=== PATIENT | female | born 1930 | race Caucasian/White ===

== ENCOUNTER 2017-02-19 13:01 | Emergency (ER) | payer MEDICARE, MEDICAID ==
[2017-02-19 13:29] VITALS: BP 103/63
[2017-02-19] MEDS ORDERED: Sodium Chloride 0.9% 1,000 ML IV ONE (13:47)
--- NOTE | 2017-02-19 13:51 | EDM.PDOC ---
ED HPI GENERAL MEDICAL PROBLEM - General Chief Complaint: Gastrointestinal Problem Stated Complaint: TEMP/WEAKNESS/COUGH Time Seen by Provider: 02/19/17 13:30 Source of Information: Reports: Patient, Family History Limitations: Reports: No Limitations - History of Present Illness INITIAL COMMENTS - FREE TEXT/NARRATIVE: 86-year-old female with cough, weakness, emesis 2 today who is also being treated for UTI with Levaquin. She's been exposed to influenza A over the past week, did receive a flu vaccination. She has generalized malaise, myalgias, fever and chills and "just feels awful". No diarrhea. No chest pain or productive cough. Significant frontal headache over the past 48 hours Onset: Gradual (Over the past 2-3 days) Quality: Reports: Ache Severity: Moderate (Aches all over) Associated Symptoms: Reports: Cough, Fever/Chills, Loss of Appetite, Malaise, Nausea/Vomiting. Denies: Shortness of Breath - Related Data Allergies Allergy/AdvReac Type Severity Reaction Status Date / Time cefdinir Allergy Intermediate Rash Verified 05/28/15 06:25 Penicillins Allergy Anaphylactic Verified 02/19/17 13:19 Shock erythromycin base AdvReac Nausea and Verified 05/28/15 06:25 [Erythromycin Base] Vomiting Home Meds: Home Meds Calcium Carbonate/Vitamin D3 [Calcium 600-Vit D3 200 Tablet] 1 cap PO BID [History] Multivitamin [Daily Multiple Vitamin] 1 tab PO DAILY 02/22/14 [History] [place]-3 Fatty Acids [[place]-3] 1,000 mg PO DAILY 02/22/14 [History] Levofloxacin [Levofloxacin] 02/19/17 [History] Past Medical History HEENT History: Reports: Cataract, Sinusitis Cardiovascular History: Reports: High Cholesterol Respiratory History: Reports: Bronchitis, Recurrent, Pneumonia, Recurrent Other Gastrointestinal History: CURRENT UTI DX Genitourinary History: Reports: UTI, Recurrent [employer] AND [employer]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 Dermatologic History: Reports: Urticaria Other Dermatologic History: Herpes Zoster - Infectious Disease History Infectious Disease History: Reports: Chicken Pox, Shingles - Past Surgical History HEENT Surgical History: Reports: Other (See Below) Social & Family History - Family History Family Medical History: Unobtainable - Tobacco Use Smoking Status *Q: Never Smoker Second Hand Smoke Exposure: No - Alcohol Use Days Per Week of Alcohol Use: 0 - Recreational Drug Use Recreational Drug Use: No ED ROS GENERAL - Review of Systems Review Of Systems: See Below Constitutional: Reports: Fever, Chills, Malaise, Weakness HEENT: Reports: Rhinitis. Denies: Throat Pain Respiratory: Reports: Cough. Denies: Shortness of Breath, Sputum Cardiovascular: Denies: Chest Pain GI/Abdominal: Reports: Nausea, Vomiting. Denies: Abdominal Pain Musculoskeletal: Reports: Muscle Pain (Aches all over) Skin: Reports: No Symptoms Neurological: Reports: Headache Psychiatric: Reports: No Symptoms ED EXAM, GENERAL - Physical Exam Exam: See Below Exam Limited By: No Limitations General Appearance: Alert, No Apparent Distress Head: Atraumatic Respiratory/Chest: No Respiratory Distress, Wheezing (Patient has a few scattered expiratory wheezes, there is also bilateral basilar crackles) Cardiovascular: Regular Rate, Rhythm GI/Abdominal: Soft, Non-Tender Extremities: No: Pedal Edema Neurological: Alert, Oriented Psychiatric: Depressed Mood, Flat Affect Skin Exam: Warm, Dry Course - Vital Signs Last Recorded V/S: Last Vital Signs Temp 99.7 F 02/19/17 13:27 Pulse 87 02/19/17 13:27 Resp 14 02/19/17 13:27 BP 103/63 02/19/17 13:27 Pulse Ox 94 L 02/19/17 13:27 - Orders/Labs/Meds Labs: Laboratory Tests 02/19/17 02/19/17 02/19/17 Range/Units 13:53 13:53 14:12 WBC 3.7 L (4.5-11.0) K/uL RBC 4.60 (3.30-5.50) M/uL Hgb 14.0 (12.0-15.0) g/dL Hct 43.4 (36.0-48.0) % MCV 94 (80-98) fL MCH 30 (27-31) pg MCHC 32 (32-36) % Plt Count 137 L (150-400) K/uL Neut % (Auto) 66 (36-66) % Lymph % (Auto) 16 L (24-44) % [place] % (Auto) 16 H (2-6) % Eos % (Auto) 1 L (2-4) % Baso % (Auto) 0 (0-1) % Sodium 139 L (140-148) mmol/L Potassium 4.0 (3.6-5.2) mmol/L Chloride 104 (100-108) mmol/L Carbon Dioxide 29 (21-32) mmol/L Anion Gap 10.0 (5.0-14.0) mmol/L BUN 15 (7-18) mg/dL Creatinine 0.8 (0.6-1.0) mg/dL Est Cr Clr Drug Dosing 41.76 mL/min Estimated GFR (MDRD) > 60 (>60) Glucose 85 (74-106) mg/dL Calcium 8.2 L (8.5-10.1) mg/dL Urine Color Yellow Urine Appearance Clear Urine pH 5.0 (4.5-8.0) Ur Specific [place] 1.025 (1.008-1.030) Urine Protein Negative (NEGATIVE) mg/dL Urine Glucose (UA) Normal (NEGATIVE) mg/dL Urine Ketones 15 H (NEGATIVE) mg/dL Urine Occult Blood Negative (NEGATIVE) Urine Nitrite Negative (NEGATIVE) Urine Bilirubin Negative (NEGATIVE) Urine Urobilinogen Normal (NORMAL) mg/dL Ur Leukocyte Esterase Negative (NEGATIVE) Urine RBC Not seen (0-5) Urine WBC 0-5 (0-5) Ur Epithelial Cells Rare Amorphous Sediment Few Urine Bacteria Rare Urine Mucus Not seen Meds: Medications Discontinued Medications Generic Name Dose Route Start Last Admin Trade Name Freq PRN Reason Stop Dose Admin Sodium Chloride 1,000 mls @ 999 mls/hr 02/19/17 13:47 02/19/17 14:15 Normal Saline IV 02/19/17 14:47 999 mls/hr ONETIME ONE Administration - Re-Assessments/Exams Free Text/Narrative Re-Assessment/Exam: 02/19/17 13:51 Patient was hydrated with normal saline bolus, CBC BMP influenza antigens and a quick catheter in and out UA were obtained. 02/19/17 14:43 UA was negative except for some ketones. White count was 3700, BMP was reassuring. Influenza A antigen was positive. Patient will be discharged with a diagnosis of influenza A, told to stop the Levaquin and increase fluids and diet as tolerated. Departure - Departure Time of Disposition: 14:59 Disposition: Home, Self-Care 01 Condition: Fair Clinical Impression: Influenza A - Discharge Information Instructions: Influenza, Adult, [id number] Referrals: PCP,None [Primary Care Provider] - Forms: ED Department Discharge Care Plan Goals: Ibuprofen or naproxen on a regular basis the next few days should help aches, pains, and fever. Drink lots of water, get plenty of rest and increase activity as tolerated. Return to the emergency room at any time if you feel you are worsening such as difficulty breathing.
== END 2017-02-19 14:59 | disposition home or self-care (01) ==
LOC: JP.ED 13:01
DX: J10.1 Influenza due to other identified influenza virus with other respiratory manifestations (principal); E78.00 Pure hypercholesterolemia, unspecified; Z88.0 Allergy status to penicillin; Z88.1 Allergy status to other antibiotic agents
CPT/HCPCS: 36415; 80048; 81001; 85025; 87804; 96360; 99285; J7040; 99283

== ENCOUNTER 2017-03-03 15:33 | Emergency (ER) | payer MEDICARE, MEDICAID ==
[2017-03-03] MEDS ORDERED: Albuterol/Ipratropium 3.0-0.5 MG/3 ML Neb Soln NEB ONE (15:57)
--- NOTE | 2017-03-03 16:04 | EDM.PDOC ---
ED HPI GENERAL MEDICAL PROBLEM - General Chief Complaint: Respiratory Problem Stated Complaint: LOW OXYGEN / WEAKNESS Time Seen by Provider: 03/03/17 15:50 Source of Information: Reports: Patient, Old Records History Limitations: Reports: No Limitations - History of Present Illness INITIAL COMMENTS - FREE TEXT/NARRATIVE: 86 yo female with recent influenza presented to the clinic with SOB of gradual onset. Thinks she has been running a fever, but has not taken any antipyretics today and her temp in clinic and here is normal. Denies any recent calf swelling or pleuritic chest pain. Has an increased cough lately that is generally non-productive. Had a normal CBC and CXR done at the clinic today and was then placed on oxygen for her hypoxia and sent to the ER. Oxygen sats in the clinic on Rm Air were about 85%. Says she has never been a smoker, but her was a smoker and smoked in the house/car. Denies a hx of CHF. Was on Levaquin for a UTI before developing her current respiratory illness. Denies orthopnea. Oxygen sats on Rm air on 02/19/17 were 94%. Does not use home oxygen. Onset: Gradual Onset Date: 02/19/17 Duration: Day(s):, Getting Worse Location: Reports: Chest Quality: Reports: Other (no pain) Severity: Moderate Improves with: Reports: Rest Worsens with: Reports: Movement Context: Reports: Other (Recent influenza) Associated Symptoms: Reports: Cough, Fever/Chills (? not documented), Shortness of Breath, Weakness. 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 ) - Related Data Allergies Allergy/AdvReac Type Severity Reaction Status Date / Time cefdinir Allergy Intermediate Rash Verified 05/28/15 06:25 Penicillins Allergy Anaphylactic Verified 02/19/17 13:19 Shock erythromycin base AdvReac Nausea and Verified 05/28/15 06:25 [Erythromycin Base] Vomiting Home Meds: Home Meds Calcium Carbonate/Vitamin D3 [Calcium 600-Vit D3 200 Tablet] 1 cap PO BID [History] Multivitamin [Daily Multiple Vitamin] 1 tab PO DAILY 02/22/14 [History] [place]-3 Fatty Acids [[place]-3] 1,000 mg PO DAILY 02/22/14 [History] Cholecalciferol (Vitamin D3) [Vitamin D3] 1,000 unit PO DAILY 03/03/17 [History] Ondansetron [Ondansetron ODT] 4 mg PO ASDIRECTED PRN 03/03/17 [History] Past Medical History HEENT History: Reports: Cataract, Sinusitis Cardiovascular History: Reports: High Cholesterol Respiratory History: Reports: Bronchitis, Recurrent, Pneumonia, Recurrent Other Gastrointestinal History: CURRENT UTI DX Genitourinary History: Reports: UTI, Recurrent 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 Dermatologic History: Reports: Urticaria Other Dermatologic History: Herpes Zoster - Infectious Disease History Infectious Disease History: Reports: Chicken Pox, Measles, Mumps, Shingles - Past Surgical History HEENT Surgical History: Reports: Other (See Below) Social & Family History - Family History Family Medical History: Unobtainable - Tobacco Use Smoking Status *Q: Never Smoker Second Hand Smoke Exposure: No - Caffeine Use Caffeine Use: Reports: Coffee, Soda, Tea - Alcohol Use Days Per Week of Alcohol Use: 0 - Recreational Drug Use Recreational Drug Use: No ED ROS GENERAL - Review of Systems Review Of Systems: See Below Constitutional: Reports: Fever, Weakness, Fatigue, Decreased Appetite HEENT: Reports: No Symptoms Respiratory: Reports: Shortness of Breath, Cough. Denies: Wheezing, Pleuritic Chest Pain, Sputum, Hemoptysis Cardiovascular: Reports: Dyspnea on Exertion. Denies: Chest Pain, Edema, Orthopnea, Palpitations Endocrine: Reports: No Symptoms GI/Abdominal: Reports: No Symptoms : Reports: No Symptoms Musculoskeletal: Reports: No Symptoms Skin: Reports: No Symptoms Neurological: Reports: No Symptoms Psychiatric: Reports: No Symptoms ED EXAM, GENERAL - Physical Exam Exam: See Below General Appearance: Alert, WD/WN, No Apparent Distress, Thin Eye Exam: Bilateral Eye: PERRL Ears: Normal External Exam, Normal Canal, Hearing Grossly Normal Ear Exam: Bilateral Ear: Auricle Normal, Canal Normal, TM normal Nose: Normal Inspection, Normal Mucosa, No Blood Throat/Mouth: Normal Inspection, Normal Lips, Normal Oropharynx, Normal Voice, No Airway Compromise Head: Atraumatic, Normocephalic Neck: Normal Inspection, Supple, Non-Tender Respiratory/Chest: Lungs Clear, Decreased Breath Sounds, Other (Frequent wet sounding cough) Cardiovascular: Regular Rate, Rhythm, No Edema GI/Abdominal: Normal Bowel Sounds, Soft, Non-Tender, No Distention Back Exam: Normal Inspection. No: CVA Tenderness (R), CVA Tenderness (L) Extremities: Normal Inspection, Normal Range of Motion, Non-Tender, No Pedal Edema Neurological: Alert, Oriented, CN II-XII Intact, Normal Cognition, No Motor/ Sensory Deficits Psychiatric: Normal Affect, Normal Mood Skin Exam: Warm, Dry, Intact, Normal Color, No Rash Lymphatic: No Adenopathy Course - Vital Signs Text/Narrative:: Minimal benefit from neb tx's, no improvement in oxygenation. Azithromycin 500 mg IV given. KCL 20 meq po given, Lovenox 1 mg/kg subcut after CT review shows LLL PE. No beds here, patient willing only to consider [facility] and no other hospital. Accepted in transfer by Dr. Winters. BLS transfer pending with oxygen during transfer. Last Recorded V/S: Last Vital Signs Temp 36.2 C 03/03/17 19:30 Pulse 111 H 03/03/17 19:30 Resp 16 03/03/17 19:30 BP 110/74 03/03/17 19:30 Pulse Ox 93 L 03/03/17 19:30 - Orders/Labs/Meds Labs: Laboratory Tests 03/03/17 03/03/17 03/03/17 Range/Units 16:00 16:00 16:00 D-Dimer, Quantitative 4280 H (0.0-400.0) ng/mL Sodium 142 (140-148) mmol/L Potassium 3.5 L (3.6-5.2) mmol/L Chloride 104 (100-108) mmol/L Carbon Dioxide 27 (21-32) mmol/L Anion Gap 14.5 H (5.0-14.0) mmol/L BUN 12 (7-18) mg/dL Creatinine 0.8 (0.6-1.0) mg/dL Est Cr Clr Drug Dosing 45.42 mL/min Estimated GFR (MDRD) > 60 (>60) Glucose 98 (74-106) mg/dL Calcium 8.7 (8.5-10.1) mg/dL Magnesium (1.8-2.4) mg/dL C-Reactive Protein 3.34 H (0.0-0.3) mg/dL NT-Pro-B Natriuret Pep (5-450) pg/mL Urine Color Urine Appearance Urine pH (4.5-8.0) Ur Specific [place] (1.008-1.030) Urine Protein (NEGATIVE) mg/dL Urine Glucose (UA) (NEGATIVE) mg/dL Urine Ketones (NEGATIVE) mg/dL Urine Occult Blood (NEGATIVE) Urine Nitrite (NEGATIVE) Urine Bilirubin (NEGATIVE) Urine Urobilinogen (NORMAL) mg/dL Ur Leukocyte Esterase (NEGATIVE) Urine RBC (0-5) Urine WBC (0-5) Ur Epithelial Cells Amorphous Sediment Urine Bacteria Urine Mucus 03/03/17 03/03/17 03/03/17 Range/Units 16:23 16:30 18:05 D-Dimer, Quantitative (0.0-400.0) ng/mL Sodium (140-148) mmol/L Potassium (3.6-5.2) mmol/L Chloride (100-108) mmol/L Carbon Dioxide (21-32) mmol/L Anion Gap (5.0-14.0) mmol/L BUN (7-18) mg/dL Creatinine (0.6-1.0) mg/dL Est Cr Clr Drug Dosing mL/min Estimated GFR (MDRD) (>60) Glucose (74-106) mg/dL Calcium (8.5-10.1) mg/dL Magnesium 1.8 (1.8-2.4) mg/dL C-Reactive Protein (0.0-0.3) mg/dL NT-Pro-B Natriuret Pep 233 (5-450) pg/mL Urine Color [place] Urine Appearance Clear Urine pH 6.5 (4.5-8.0) Ur Specific [place] 1.015 (1.008-1.030) Urine Protein Negative (NEGATIVE) mg/dL Urine Glucose (UA) Normal (NEGATIVE) mg/dL Urine Ketones 15 H (NEGATIVE) mg/dL Urine Occult Blood Negative (NEGATIVE) Urine Nitrite Negative (NEGATIVE) Urine Bilirubin Small (NEGATIVE) Urine Urobilinogen 4 (NORMAL) mg/dL Ur Leukocyte Esterase Moderate (NEGATIVE) Urine RBC 0-5 (0-5) Urine WBC 10-20 H (0-5) Ur Epithelial Cells Many Amorphous Sediment Not seen Urine Bacteria Not seen Urine Mucus Rare Meds: Medications Discontinued Medications Generic Name Dose Route Start Last Admin Trade Name Don PRN Reason Stop Dose Admin Albuterol 2.5 mg 03/03/17 16:30 03/03/17 16:50 Proventil Neb Soln NEB 03/03/17 16:31 2.5 mg ONETIME ONE Administration Albuterol/Ipratropium 3 ml 03/03/17 15:57 03/03/17 16:14 Duoneb 3.0-0.5 Mg/3 Ml NEB 03/03/17 15:58 3 ml ONETIME ONE Administration Enoxaparin Sodium 60 mg 03/03/17 18:35 03/03/17 18:41 Lovenox SUBCUT 03/03/17 18:36 60 mg ONETIME ONE Administration Azithromycin 1,000 mg/ Sodium 500 mls @ 500 mls/hr 03/03/17 16:29 03/03/17 17 :39 Chloride IV 03/03/17 17:28 Not Given ONETIME ONE Lactated Ringer's 1,000 mls @ 500 mls/hr 03/03/17 17:00 03/03/17 17:34 Ringers, Lactated IV 500 mls/hr ASDIRECTED [place] Administration Sodium Chloride 100 mls @ 3 mls/sec 03/03/17 17:15 03/03/17 17:33 Normal Saline IV 3 mls/sec ASDIRECTED [place] Administration Azithromycin 500 mg/ Sodium 250 mls @ 250 mls/hr 03/03/17 17:14 03/03/17 17: 34 Chloride IV 03/03/17 18:13 250 mls/hr ONETIME ONE Administration Iopamidol 100 ml 03/03/17 17:15 03/03/17 17:33 Isovue-370 (76%) IV 100 ml . DIRECTED CALDERON Administration Potassium Chloride 20 meq 03/03/17 16:30 03/03/17 17:33 Klor-Con M20 PO 03/03/17 16:31 20 meq ONETIME ONE Administration Sodium Chloride 10 ml 03/03/17 17:04 03/03/17 17:34 Normal Saline FLUSH 03/03/17 17:05 10 ml ONETIME ONE Administration - Radiology Interpretation Free Text/Narrative:: Angiogram of Chest-LLL PE CT Results Date: 01/09/18 CT Results Time: 18:04 Departure - Departure Time of Disposition: 20:00 Disposition: DC/Tfer to Acute Hospital 02 Condition: Fair Clinical Impression: Hypoxia, Bronchitis, Mild chronic obstructive pulmonary disease Pulmonary embolism Qualifiers: Pulmonary embolism type: other Chronicity: acute Acute cor pulmonale presence: without acute cor pulmonale Qualified Code(s): I26.99 - Other pulmonary embolism without acute cor pulmonale Clinical Impression: (Ruled Out): Pulmonary air embolism - Discharge Information Referrals: PCP,None [Primary Care Provider] - Forms: ED Department Discharge
[2017-03-03] MEDS ORDERED: Azithromycin 1,000 MG in Sodium Chloride 0.9% 500 ML IV ONE (16:29)
[2017-03-03] MEDS ORDERED: Potassium Chloride 20 MEQ Tab.ER PO ONE (16:30)
[2017-03-03] MEDS ORDERED: Albuterol 0.083% 2.5 MG/3 ML Neb Soln NEB ONE (16:30)
[2017-03-03] MEDS ORDERED: Lactated Ringers 1,000 ML IV SCH (17:00)
[2017-03-03] MEDS ORDERED: Sodium Chloride 0.9% 10 ML SDV FLUSH ONE (17:04)
[2017-03-03] MEDS ORDERED: Azithromycin 500 MG in Sodium Chloride 0.9% 250 ML IV ONE (17:14)
[2017-03-03] MEDS ORDERED: Sodium Chloride 0.9% 100 ML IV SCH (17:15)
[2017-03-03] MEDS ORDERED: Iopamidol 755 Mg/ML 100 ML Bottle IV SCH (17:15)
[2017-03-03] MEDS ORDERED: Enoxaparin 60 MG/0.6 ML Syringe SUBCUT ONE (18:35)
[2017-03-03 18:43] VITALS: BP 110/74
== END 2017-03-03 20:00 ==
LOC: JP.ED 15:33
DX: I26.99 Other pulmonary embolism without acute cor pulmonale (principal); J44.9 Chronic obstructive pulmonary disease, unspecified; E78.00 Pure hypercholesterolemia, unspecified; Z88.0 Allergy status to penicillin; Z88.1 Allergy status to other antibiotic agents
CPT/HCPCS: 36415; 71275; 80048; 81001; 83735; 83880; 85379; 86140; 87086; 94640; 96361; 96365; 96372; 99285; A9270; J0456; J1650; J7030; J7050; J7120; J7620; Q9967

== ENCOUNTER 2017-03-17 10:33 | Inpatient (IN) | payer MEDICARE, MEDICAID ==
--- NOTE | 2017-03-17 11:14 | EDM.PDOC ---
ED HPI GENERAL MEDICAL PROBLEM - General Chief Complaint: General Stated Complaint: MEDICAL VIA [facility] Time Seen by Provider: 03/17/17 11:06 Source of Information: Reports: Patient History Limitations: Reports: No Limitations - History of Present Illness INITIAL COMMENTS - FREE TEXT/NARRATIVE: pt was hospitalized at [facility] and was discharged 1 week ago. She has been doing well but this am she went to stand up and nearly [passed out. She was slightly sob. She feels very washed out at this point. ! month ago the pt had influ a. She was very ill with that and was not very active. @ weeks ago she came in feeling sob and she was found to have a left lower lobe Pe. She had to be diverted to [facility] because no beds were available. She was placed on elequist on discharge and she has been taking 5 mg. twice daily. Onset: Today, Other (pt had a near syncopal episode this am. ) Duration: Hour(s): Location: Reports: Head, Chest, Back, Other (pt thinks she did fall when she tried to get back in bed this am. ) Associated Symptoms: Reports: Weakness (pt is having some back pain. ), Other Lower Back Pain Score (Numeric/FACES): 4 - Related Data Allergies Allergy/AdvReac Type Severity Reaction Status Date / Time cefdinir Allergy Intermediate Rash Verified 03/17/17 10:58 Latex, Natural Rubber Allergy Rash Verified 03/17/17 10:58 Penicillins Allergy Anaphylactic Verified 03/17/17 10:58 Shock erythromycin base AdvReac Nausea and Verified 03/17/17 10:58 [Erythromycin Base] Vomiting Home Meds: Home Meds Calcium Carbonate/Vitamin D3 [Calcium 600-Vit D3 200 Tablet] 1 cap PO BID [History] [place]-3 Fatty Acids [[place]-3] 1,000 mg PO DAILY 02/22/14 [History] Cholecalciferol (Vitamin D3) [Vitamin D3] 1,000 unit PO DAILY 03/03/17 [History] Ondansetron [Ondansetron ODT] 4 mg PO ASDIRECTED PRN 03/03/17 [History] Apixaban [Eliquis] 1 tab PO BID 03/17/17 [History] Multivitamin [Gummi Bear Multivitamin] 2 tab PO DAILY 03/17/17 [History] Past Medical History HEENT History: Reports: Cataract, Sinusitis Cardiovascular History: Reports: Blood Clots/VTE/DVT, High Cholesterol Respiratory History: Reports: Bronchitis, Recurrent, Pneumonia, Recurrent Other Gastrointestinal History: CURRENT UTI DX Genitourinary History: Reports: UTI, Recurrent [employer] History: Reports: Musculoskeletal History: Reports: Back Pain, Chronic, Osteoarthritis, Osteoporosis Oncologic (Cancer) History: Reports: Other (See Below) Other Oncologic History: Recent u/s for l breast pain.Results unknown. Dermatologic History: Reports: Urticaria Other Dermatologic History: Herpes Zoster - Infectious Disease History Infectious Disease History: Reports: Chicken Pox, Measles, Mumps, Shingles - Past Surgical History HEENT Surgical History: Reports: Other (See Below) Social & Family History - Family History Family Medical History: Unobtainable - Tobacco Use Smoking Status *Q: Never Smoker Second Hand Smoke Exposure: No - Caffeine Use Caffeine Use: Reports: Coffee, Soda, Tea - Alcohol Use Days Per Week of Alcohol Use: 0 - Recreational Drug Use Recreational Drug Use: No ED ROS GENERAL - Review of Systems Review Of Systems: See Below Constitutional: Reports: Weakness, Weight Loss HEENT: Reports: No Symptoms Respiratory: Reports: Shortness of Breath Cardiovascular: Reports: No Symptoms Endocrine: Reports: No Symptoms GI/Abdominal: Reports: No Symptoms : Reports: No Symptoms ED EXAM, GENERAL - Physical Exam Exam: See Below Free Text/Narrative:: pt arrived with a history of a near syncopal episode at home. She does think she fell today and she is now having pain in her upper lumbar area. Exam Limited By: No Limitations General Appearance: Alert, Moderate Distress Ears: Normal TMs Nose: Normal Inspection Throat/Mouth: Normal Inspection Head: Atraumatic Neck: Normal Inspection Respiratory/Chest: No Respiratory Distress, Other (pt does have a history of copd. Her sats are sitting in the low 90s. She was sob at the time she fell. ) Cardiovascular: Regular Rate, Rhythm GI/Abdominal: Soft, Non-Tender (Female) Exam: Deferred Rectal (Female) Exam: Deferred, Other (pt did have a normal bm this am. ) Back Exam: Other (pt is tender in the upper lumbar area. ) Extremities: Normal Inspection Neurological: Alert, Oriented, Normal Cognition Psychiatric: Normal Affect Course - Vital Signs Last Recorded V/S: Last Vital Signs Temp 35.2 C L 01/23/18 10:45 Pulse 80 03/17/17 12:06 Resp 18 03/17/17 12:06 BP 118/61 03/17/17 12:06 Pulse Ox 95 03/17/17 12:06 Orthostatic Blood Pressure [ 66/33 Standing] Orthostatic Blood Pressure [ 101/64 Sitting] Orthostatic Blood Pressure [ 118/63 Supine] - Orders/Labs/Meds Orders: Active Orders 24 hr Category Date Time Status EKG Documentation Completion [RC] ASDIRECTED Care 03/17/17 11:31 Active Orthostatic Vital Signs [RC] ASDIRECTED Care 03/17/17 10:58 Active Ang Chest [CT] Stat Exams 03/17/17 11:40 Taken Lumbar Spine Min 4V [CR] Stat Exams 03/17/17 11:36 Taken CULTURE BLOOD [BC] Urgent Lab 03/17/17 12:51 Ordered CULTURE BLOOD [BC] Urgent Lab 03/17/17 12:51 Ordered UA W/MICROSCOPIC [URIN] Urgent Lab 03/17/17 10:56 Uncollected Iopamidol [Isovue-370 (76%)] Med 03/17/17 12:00 Active 100 ml IV . DIRECTED Sodium Chloride 0.9% [Normal Saline] 1,000 ml Med 03/17/17 11:30 Active IV ASDIRECTED Sodium Chloride 0.9% [Normal Saline] 1,000 ml Med 03/17/17 12:45 Active IV ASDIRECTED Sodium Chloride 0.9% [Normal Saline] 100 ml Med 03/17/17 12:00 Active IV ASDIRECTED Sodium Chloride 0.9% [Saline Flush] Med 03/17/17 11:47 Active 10 ml FLUSH ONETIME PRN Blood Culture x2 Reflex Set [OM.PC] Urgent Oth 03/17/17 12:51 Ordered EKG 12 Lead [EK] Routine Ther 03/17/17 11:31 Ordered Medication Orders Sodium Chloride (Normal Saline) 1,000 mls @ 999 mls/hr IV ASDIRECTED CALDERON Last Admin: 03/17/17 11:31 Dose: 999 mls/hr Sodium Chloride (Normal Saline) 100 mls @ 4 mls/sec IV ASDIRECTED CALDERON Stop: 03/17/17 13:00 Last Admin: 03/17/17 11:57 Dose: 4 mls/sec Sodium Chloride (Normal Saline) 1,000 mls @ 400 mls/hr IV ASDIRECTED CALDERON Iopamidol (Isovue-370 (76%)) 100 ml IV . DIRECTED CALDERON Stop: 03/17/17 13:00 Last Admin: 03/17/17 11:57 Dose: 100 ml Sodium Chloride (Saline Flush) 10 ml FLUSH ONETIME PRN PRN Reason: per radiology protocol Stop: 03/17/17 13:00 Last Admin: 03/17/17 11:57 Dose: 10 ml Labs: Laboratory Tests 03/17/17 03/17/17 03/17/17 Range/Units 11:02 11:02 11:02 WBC 8.6 (4.5-11.0) K/uL RBC 4.51 (3.30-5.50) M/uL Hgb 13.5 (12.0-15.0) g/dL Hct 42.8 (36.0-48.0) % MCV 95 (80-98) fL MCH 30 (27-31) pg MCHC 32 (32-36) % Plt Count 326 (150-400) K/uL Neut % (Auto) 79 H (36-66) % Lymph % (Auto) 10 L (24-44) % [place] % (Auto) 10 H (2-6) % Eos % (Auto) 1 L (2-4) % Baso % (Auto) 0 (0-1) % PT (9.5-12.0) sec INR (0.80-1.20) APTT (27.0-36.0) sec Sodium 141 (140-148) mmol/L Potassium 3.8 (3.6-5.2) mmol/L Chloride 105 (100-108) mmol/L Carbon Dioxide 30 (21-32) mmol/L Anion Gap 6.4 (5.0-14.0) mmol/L BUN 9 (7-18) mg/dL Creatinine 0.8 (0.6-1.0) mg/dL Est Cr Clr Drug Dosing 42.78 mL/min Estimated GFR (MDRD) > 60 (>60) Glucose 112 H (74-106) mg/dL Lactic Acid (0.4-2.0) mmol/L Calcium 8.6 (8.5-10.1) mg/dL Magnesium 1.9 (1.8-2.4) mg/dL Total Bilirubin 0.6 (0.2-1.0) mg/dL AST 17 (15-37) U/L ALT 13 (12-78) U/L Alkaline Phosphatase 61 (46-116) U/L Total Protein 6.3 L (6.4-8.2) g/dL Albumin 2.3 L (3.4-5.0) g/dL Globulin 4.0 H (2.3-3.5) g/dL Albumin/Globulin Ratio 0.6 L (1.2-2.2) 03/17/17 03/17/17 Range/Units 11:04 11:23 WBC (4.5-11.0) K/uL RBC (3.30-5.50) M/uL Hgb (12.0-15.0) g/dL Hct (36.0-48.0) % MCV (80-98) fL MCH (27-31) pg MCHC (32-36) % Plt Count (150-400) K/uL Neut % (Auto) (36-66) % Lymph % (Auto) (24-44) % [place] % (Auto) (2-6) % Eos % (Auto) (2-4) % Baso % (Auto) (0-1) % PT 11.8 (9.5-12.0) sec INR 1.10 (0.80-1.20) APTT 27.8 (27.0-36.0) sec Sodium (140-148) mmol/L Potassium (3.6-5.2) mmol/L Chloride (100-108) mmol/L Carbon Dioxide (21-32) mmol/L Anion Gap (5.0-14.0) mmol/L BUN (7-18) mg/dL Creatinine (0.6-1.0) mg/dL Est Cr Clr Drug Dosing mL/min Estimated GFR (MDRD) (>60) Glucose (74-106) mg/dL Lactic Acid 1.2 (0.4-2.0) mmol/L Calcium (8.5-10.1) mg/dL Magnesium (1.8-2.4) mg/dL Total Bilirubin (0.2-1.0) mg/dL AST (15-37) U/L ALT (12-78) U/L Alkaline Phosphatase (46-116) U/L Total Protein (6.4-8.2) g/dL Albumin (3.4-5.0) g/dL Globulin (2.3-3.5) g/dL Albumin/Globulin Ratio (1.2-2.2) Meds: Medications Generic Name Dose Route Start Last Admin Trade Name Freq PRN Reason Stop Dose Admin Sodium Chloride 1,000 mls @ 999 mls/hr 03/17/17 11:30 03/17/17 11:31 Normal Saline IV 999 mls/hr ASDIRECTED CALDERON Administration Sodium Chloride 100 mls @ 4 mls/sec 03/17/17 12:00 03/17/17 11:57 Normal Saline IV 03/17/17 13:00 4 mls/sec ASDIRECTED CALDERON Administration Sodium Chloride 1,000 mls @ 400 mls/hr 03/17/17 12:45 Normal Saline IV ASDIRECTED CALDERON Iopamidol 100 ml 03/17/17 12:00 03/17/17 11:57 Isovue-370 (76%) IV 03/17/17 13:00 100 ml . DIRECTED CALDERON Administration Sodium Chloride 10 ml 03/17/17 11:47 03/17/17 11:57 Saline Flush FLUSH 03/17/17 13:00 10 ml ONETIME PRN Administration per radiology protocol - Re-Assessments/Exams Free Text/Narrative Re-Assessment/Exam: 03/17/17 12:58 pt had a repeat lung scan to see if pt threw any further pes. The scan was neg for change but she does have a bilateral pneumonia. She has received 1 full liter and is on her second liter of fluid. Departure - Departure Time of Disposition: 12:59 Disposition: Admitted As Inpatient 66 Condition: Fair Clinical Impression: Postural hypotension, Bilateral pneumonia, Dehydration, COPD (chronic obstructive pulmonary disease) - Discharge Information Referrals: PCP,None [Primary Care Provider] - Forms: ED Department Discharge Care Plan Goals: admit to Dr post. - My Orders Last 24 Hours: My Active Orders 03/17/17 10:56 UA W/MICROSCOPIC [URIN] Urgent 03/17/17 10:58 Orthostatic Vital Signs [RC] ASDIRECTED 03/17/17 11:30 Sodium Chloride 0.9% [Normal Saline] 1,000 ml IV ASDIRECTED 03/17/17 11:31 EKG Documentation Completion [RC] ASDIRECTED EKG 12 Lead [EK] Routine 03/17/17 11:36 Lumbar Spine Min 4V [CR] Stat 03/17/17 11:40 Ang Chest [CT] Stat 03/17/17 11:47 Sodium Chloride 0.9% [Saline Flush] 10 ml FLUSH ONETIME PRN 03/17/17 12:00 Iopamidol [Isovue-370 (76%)] 100 ml IV . DIRECTED Sodium Chloride 0.9% [Normal Saline] 100 ml IV ASDIRECTED 03/17/17 12:45 Sodium Chloride 0.9% [Normal Saline] 1,000 ml IV ASDIRECTED 03/17/17 12:51 CULTURE BLOOD [BC] Urgent CULTURE BLOOD [BC] Urgent Blood Culture x2 Reflex Set [OM.PC] Urgent - Assessment/Plan Last 24 Hours: My Active Orders 03/17/17 10:56 UA W/MICROSCOPIC [URIN] Urgent 03/17/17 10:58 Orthostatic Vital Signs [RC] ASDIRECTED 03/17/17 11:30 Sodium Chloride 0.9% [Normal Saline] 1,000 ml IV ASDIRECTED 03/17/17 11:31 EKG Documentation Completion [RC] ASDIRECTED EKG 12 Lead [EK] Routine 03/17/17 11:36 Lumbar Spine Min 4V [CR] Stat 03/17/17 11:40 Ang Chest [CT] Stat 03/17/17 11:47 Sodium Chloride 0.9% [Saline Flush] 10 ml FLUSH ONETIME PRN 03/17/17 12:00 Iopamidol [Isovue-370 (76%)] 100 ml IV . DIRECTED Sodium Chloride 0.9% [Normal Saline] 100 ml IV ASDIRECTED 03/17/17 12:45 Sodium Chloride 0.9% [Normal Saline] 1,000 ml IV ASDIRECTED 03/17/17 12:51 CULTURE BLOOD [BC] Urgent CULTURE BLOOD [BC] Urgent Blood Culture x2 Reflex Set [OM.PC] Urgent
[2017-03-17] MEDS ORDERED: Sodium Chloride 0.9% 1,000 ML IV SCH ×2 (11:30→12:45)
[2017-03-17] MEDS ORDERED: Sodium Chloride 0.9% 10 ML Syringe FLUSH PRN ×2 (11:47→14:14)
[2017-03-17] MEDS ORDERED: Sodium Chloride 0.9% 100 ML IV SCH (12:00)
[2017-03-17] MEDS ORDERED: Iopamidol 755 Mg/ML 100 ML Bottle IV SCH (12:00)
--- NOTE | 2017-03-17 12:54 | CT ---
Ang Chest Total DLP 146 mGycm. INDICATION: near syncope, known PE COMPARISON: CT 03/03/2017. FINDINGS: No acute pulmonary artery embolism. Nonocclusive left lower lobe pulmonary has resolved sin ce prior exam. Increased bibasilar, anterior right upper lobe, and lingular infiltrate, worrisome for pneumonia. Tiny left pleural effusion. Stable bronchiectasis. Stable mediastinal and hilar lymphaden opathy measuring up to 1.3 cm short axis. Thoracic curve. Exam otherwise negative. IMPRESSION: No acute PE. Interval resolution of the previous embolus in the left lower lobe seen on t he prior exam. Increased infiltrate throughout both lungs, worrisome for pneumonia. Additional stable findings as above.
[2017-03-17] MEDS ORDERED: Levofloxacin/Dextrose 5%-Water 750 MG in Premix Bag 1 BAG IV SCH (13:30)
--- NOTE | 2017-03-17 13:41 | CR ---
Lumbar Spine Min 4V INDICATION: Pt nearly passed out and fell FINDINGS: Lumbar scoliosis convex to the left. 5 lumbar type vertebral bodies. Mild/moderate degenera tive disc space narrowing at L2-3, L4-5, and L5-S1. Moderate degenerative arthritis lower lumbar face t joints. Slight retrolisthesis of L2 on L3 and L1 on L2 that is unchanged on extension and reduces o n flexion.
--- NOTE | 2017-03-17 13:46 | PCM.HP ---
H&P History of Present Illness - General Date of Service: 03/17/17 Admit Problem/Dx: Admission Diagnosis/Problem Admission Diagnosis/Problem Pneumonia Source of Information: Patient, Old Records, Provider, RN Notes Reviewed History Limitations: Reports: No Limitations - History of Present Illness Initial Comments - Free Text/Narative: Ms. Aceves is an 87-year-old woman who is admitted through the emergency department with weakness and lightheadedness secondary to bilateral pneumonia. She was diagnosed with influenza a a few weeks back, seem to be recovering from that when she developed abrupt onset of shortness of breath 2 weeks ago. On evaluation was found to have a pulmonary embolism, there were no beds available at this facility so she was transferred to the hospital in [place]. She was discharged from there about a week and a half ago and seemed to be slowly regaining strength, with less shortness of breath. This morning when she initially got up relatively well, then developed abrupt onset of weakness and lightheadedness. Lightheadedness resulted in a syncopal episode and she was brought into the emergency department for further evaluation. Laboratory studies are unremarkable and vital signs were stable. Orthostatic vital signs were obtained and did show significant drop in blood pressure with standing. CT scan of the chest with PE protocol was obtained and showed no new pulmonary emboli but did document bilateral pulmonary infiltrates consistent with infection. She denies recent fevers chills or sweats, since the influenza has had a persistent cough but does not think that it's worsened over the past few days. Lower Back Pain Score (Numeric/FACES): 4 - Related Data Allergies/Adverse Reactions: Allergies Allergy/AdvReac Type Severity Reaction Status Date / Time cefdinir Allergy Intermediate Rash Verified 03/17/17 10:58 Latex, Natural Rubber Allergy Rash Verified 03/17/17 10:58 Penicillins Allergy Anaphylactic Verified 03/17/17 10:58 Shock erythromycin base AdvReac Nausea and Verified 03/17/17 10:58 [Erythromycin Base] Vomiting Home Medications: Home Meds Calcium Carbonate/Vitamin D3 [Calcium 600-Vit D3 200 Tablet] 1 cap PO BID [History] Morven-3 Fatty Acids [Morven-3] 1,000 mg PO DAILY 02/22/14 [History] Cholecalciferol (Vitamin D3) [Vitamin D3] 1,000 unit PO DAILY 03/03/17 [History] Ondansetron [Ondansetron ODT] 4 mg PO ASDIRECTED PRN 03/03/17 [History] Apixaban [Eliquis] 1 tab PO BID 03/17/17 [History] Multivitamin [Gummi Bear Multivitamin] 2 tab PO DAILY 03/17/17 [History] Past Medical History HEENT History: Reports: Cataract, Sinusitis Cardiovascular History: Reports: Blood Clots/VTE/DVT, High Cholesterol Respiratory History: Reports: Bronchitis, Recurrent, Pneumonia, Recurrent Other Gastrointestinal History: CURRENT UTI DX Genitourinary History: Reports: UTI, Recurrent [employer] History: Reports: Musculoskeletal History: Reports: Back Pain, Chronic, Osteoarthritis, Osteoporosis Oncologic (Cancer) History: Reports: Other (See Below) Other Oncologic History: Recent u/s for l breast pain.Results unknown. Dermatologic History: Reports: Urticaria Other Dermatologic History: Herpes Zoster - Infectious Disease History Infectious Disease History: Reports: Chicken Pox, Measles, Mumps, Shingles - Past Surgical History HEENT Surgical History: Reports: Other (See Below) Social & Family History - Family History Family Medical History: Unobtainable - Tobacco Use Smoking Status *Q: Never Smoker Second Hand Smoke Exposure: No - Caffeine Use Caffeine Use: Reports: Coffee, Soda, Tea - Alcohol Use Days Per Week of Alcohol Use: 0 - Recreational Drug Use Recreational Drug Use: No H&P Review of Systems - Review of Systems: Review Of Systems: See Below General: Reports: Weakness, Diaphoresis. Denies: Fever, Chills HEENT: Reports: No Symptoms Pulmonary: Reports: Shortness of Breath, Cough. Denies: Wheezing, Pleuritic Chest Pain, Sputum, Hemoptysis Cardiovascular: Reports: Dyspnea on Exertion, Lightheadedness, Syncope. Denies : Chest Pain, Palpitations, Orthopnea, PND, Edema Gastrointestinal: Reports: No Symptoms Genitourinary: Reports: No Symptoms Musculoskeletal: Reports: Back Pain. Denies: Neck Pain Skin: Reports: No Symptoms Psychiatric: Reports: No Symptoms Neurological: Reports: No Symptoms Hematologic/Lymphatic: Reports: No Symptoms Immunologic: Reports: No Symptoms Exam - Exam Exam: See Below - Vital Signs Vital Signs: Last Vital Signs Temp 95.3 F L 03/17/17 10:45 Pulse 78 03/17/17 12:53 Resp 22 H 03/17/17 12:53 BP 130/79 03/17/17 12:53 Pulse Ox 93 L 03/17/17 12:53 Orthostatic Blood Pressure [ 66/33 Standing] Orthostatic Blood Pressure [ 101/64 Sitting] Orthostatic Blood Pressure [ 118/63 Supine] Weight: 131 lb - Exam Quality Assessment: DVT Prophylaxis General: Alert, Oriented, Cooperative, Mild Distress HEENT: Conjunctiva Clear, Hearing Intact, Mucosa Moist & [place], Normal Nasal Septum, Posterior Pharynx Clear, Pupils Equal Neck: Supple, Trachea Midline, +2 Carotid Pulse wo Bruit Lungs: Normal Respiratory Effort, Decreased Breath Sounds, Rales. No: Crackles , Rhonchi, Rub Cardiovascular: Regular Rate, Regular Rhythm, Normal S1, Normal S2. No: Systolic Murmur, Diastolic Murmur GI/Abdominal Exam: Soft, Non-Tender, No Organomegaly, No Distention Back Exam: Vertebral Tenderness. No: Muscle Spasm, Paraspinal Tenderness Extremities: Non-Tender, No Pedal Edema Skin: Warm, Dry, Intact Neurological: Cranial Nerves Intact, Strength Equal Bilateral, Normal Speech, Normal Tone, Sensation Intact. No: Focal Deficit Neuro Extensive - Mental Status: Alert, Oriented x3, Normal Mood/Affect, Normal Cognition, Memory Intact - Patient Data Lab Results Last 24 hrs: Laboratory Results - last 24 hr 03/17/17 03/17/17 03/17/17 Range/Units 11:02 11:02 11:02 WBC 8.6 (4.5-11.0) K/uL RBC 4.51 (3.30-5.50) M/uL Hgb 13.5 (12.0-15.0) g/dL Hct 42.8 (36.0-48.0) % MCV 95 (80-98) fL MCH 30 (27-31) pg MCHC 32 (32-36) % Plt Count 326 (150-400) K/uL Neut % (Auto) 79 H (36-66) % Lymph % (Auto) 10 L (24-44) % [place] % (Auto) 10 H (2-6) % Eos % (Auto) 1 L (2-4) % Baso % (Auto) 0 (0-1) % PT (9.5-12.0) sec INR (0.80-1.20) APTT (27.0-36.0) sec Sodium 141 (140-148) mmol/L Potassium 3.8 (3.6-5.2) mmol/L Chloride 105 (100-108) mmol/L Carbon Dioxide 30 (21-32) mmol/L Anion Gap 6.4 (5.0-14.0) mmol/L BUN 9 (7-18) mg/dL Creatinine 0.8 (0.6-1.0) mg/dL Est Cr Clr Drug Dosing 42.78 mL/min Estimated GFR (MDRD) > 60 (>60) Glucose 112 H (74-106) mg/dL Lactic Acid (0.4-2.0) mmol/L Calcium 8.6 (8.5-10.1) mg/dL Magnesium 1.9 (1.8-2.4) mg/dL Total Bilirubin 0.6 (0.2-1.0) mg/dL AST 17 (15-37) U/L ALT 13 (12-78) U/L Alkaline Phosphatase 61 (46-116) U/L Total Protein 6.3 L (6.4-8.2) g/dL Albumin 2.3 L (3.4-5.0) g/dL Globulin 4.0 H (2.3-3.5) g/dL Albumin/Globulin Ratio 0.6 L (1.2-2.2) Urine Color Urine Appearance Urine pH (4.5-8.0) Ur Specific [place] (1.008-1.030) Urine Protein (NEGATIVE) mg/dL Urine Glucose (UA) (NEGATIVE) mg/dL Urine Ketones (NEGATIVE) mg/dL Urine Occult Blood (NEGATIVE) Urine Nitrite (NEGATIVE) Urine Bilirubin (NEGATIVE) Urine Urobilinogen (NORMAL) mg/dL Ur Leukocyte Esterase (NEGATIVE) Urine RBC (0-5) Urine WBC (0-5) Ur Epithelial Cells Amorphous Sediment Urine Bacteria Urine Mucus 03/17/17 03/17/17 03/17/17 Range/Units 11:04 11:23 12:53 WBC (4.5-11.0) K/uL RBC (3.30-5.50) M/uL Hgb (12.0-15.0) g/dL Hct (36.0-48.0) % MCV (80-98) fL MCH (27-31) pg MCHC (32-36) % Plt Count (150-400) K/uL Neut % (Auto) (36-66) % Lymph % (Auto) (24-44) % [place] % (Auto) (2-6) % Eos % (Auto) (2-4) % Baso % (Auto) (0-1) % PT 11.8 (9.5-12.0) sec INR 1.10 (0.80-1.20) APTT 27.8 (27.0-36.0) sec Sodium (140-148) mmol/L Potassium (3.6-5.2) mmol/L Chloride (100-108) mmol/L Carbon Dioxide (21-32) mmol/L Anion Gap (5.0-14.0) mmol/L BUN (7-18) mg/dL Creatinine (0.6-1.0) mg/dL Est Cr Clr Drug Dosing mL/min Estimated GFR (MDRD) (>60) Glucose (74-106) mg/dL Lactic Acid 1.2 (0.4-2.0) mmol/L Calcium (8.5-10.1) mg/dL Magnesium (1.8-2.4) mg/dL Total Bilirubin (0.2-1.0) mg/dL AST (15-37) U/L ALT (12-78) U/L Alkaline Phosphatase (46-116) U/L Total Protein (6.4-8.2) g/dL Albumin (3.4-5.0) g/dL Globulin (2.3-3.5) g/dL Albumin/Globulin Ratio (1.2-2.2) Urine Color Yellow Urine Appearance Clear Urine pH 7.0 (4.5-8.0) Ur Specific [place] 1.005 L (1.008-1.030) Urine Protein Negative (NEGATIVE) mg/dL Urine Glucose (UA) Normal (NEGATIVE) mg/dL Urine Ketones 15 H (NEGATIVE) mg/dL Urine Occult Blood Negative (NEGATIVE) Urine Nitrite Negative (NEGATIVE) Urine Bilirubin Small (NEGATIVE) Urine Urobilinogen Normal (NORMAL) mg/dL Ur Leukocyte Esterase Moderate (NEGATIVE) Urine RBC Not seen (0-5) Urine WBC 0-5 (0-5) Ur Epithelial Cells Few Amorphous Sediment Not seen Urine Bacteria Not seen Urine Mucus Few Result Diagrams: 03/17/17 11:02 03/17/17 11:02 Naun Results Last 24 hrs: Microbiology 03/17/17 13:06 Influenza Type A Antigen Screen - Final Nasopharyngeal Swab - Nare, Left NEGATIVE INFLUENZA A VIRUS AG Influenza Type B Antigen Screen - Final NEGATIVE INFLUENZA B VIRUS AG *Q Meaningful Use (ADM) - VTE *Q VTE Criteria *Q: - VTE Risk Assess *Q Each Risk Factor Represents 1 Point: Serious lung disease including pneumonia, Abnormal Pulmonary Function (COPD) Total Score 1 Point Risk Factors: 2 Each Risk Factor Represents 2 Points: None Total Score 2 Point Risk Factors: 0 Each Risk Factor Represents 3 Points: Age 75 Years or Greater, History of DVT/PE Total Score 3 Point Risk Factors: 6 Each Risk Factor Represents 5 Points: None Total Score 5 Point Risk Factors: 0 Venous Thromboembolism Risk Factor Score *Q: 8 - Stroke *Q Stroke Criteria *Q: - AMI *Q AMI Criteria *Q: Problem List Initiated/Reviewed/Updated: Yes Orders Last 24hrs: Active Orders 24 hr Category Date Time Status Patient Status Manage Transfer [TRANSFER] Routine ADT 03/17/17 13:27 Active EKG Documentation Completion [RC] ASDIRECTED Care 03/17/17 11:31 Active Orthostatic Vital Signs [RC] ASDIRECTED Care 03/17/17 10:58 Active Lumbar Spine Min 4V [CR] Stat Exams 03/17/17 11:36 Taken CULTURE BLOOD [BC] Urgent Lab 03/17/17 13:00 Received CULTURE BLOOD [BC] Urgent Lab 03/17/17 13:02 Received CULTURE RESPIRATORY + SMEAR [RM] Stat Lab 03/17/17 13:04 Uncollected Aztreonam [Azactam] 1 gm Med 03/17/17 14:00 Ordered Sodium Chloride 0.9% [Normal Saline] 100 ml IV Q8HR Aztreonam/Dextrose-Water [Azactam in Dextrose,Iso- Med 03/17/17 14:00 Active Osmotic 1 GM/50 ML] 1 gm Premix Bag 1 bag IV ONETIME Doxycycline [Vibramycin] 100 mg Med 03/17/17 14:00 Active Sodium Chloride 0.9% [Normal Saline] 100 ml IV ONETIME Doxycycline [Vibramycin] 100 mg Med 03/17/17 13:30 Ordered Sodium Chloride 0.9% [Normal Saline] 100 ml IV Q12HR Sodium Chloride 0.9% [Normal Saline] 1,000 ml Med 03/17/17 11:30 Active IV ASDIRECTED Sodium Chloride 0.9% [Normal Saline] 1,000 ml Med 03/17/17 12:45 Active IV ASDIRECTED Blood Culture x2 Reflex Set [OM.PC] Urgent Oth 03/17/17 12:51 Ordered Resuscitation Status Routine Resus Stat 03/17/17 13:28 Ordered EKG 12 Lead [EK] Routine Ther 03/17/17 11:31 Ordered Medication Orders Sodium Chloride (Normal Saline) 1,000 mls @ 999 mls/hr IV ASDIRECTED [facility] Last Admin: 03/17/17 11:31 Dose: 999 mls/hr Sodium Chloride (Normal Saline) 1,000 mls @ 400 mls/hr IV ASDIRECTED [place] Last Admin: 03/17/17 12:54 Dose: 400 mls/hr Doxycycline Hyclate 100 mg/ (Sodium Chloride) 100 mls @ 100 mls/hr IV Q12HR [facility] Aztreonam 1 gm/ Sodium (Chloride) 100 mls @ 200 mls/hr IV Q8HR [facility] Aztreonam/Dextrose 1 gm/ (Premix) 50 mls @ 100 mls/hr IV ONETIME ONE Stop: 03/17/17 14:29 Doxycycline Hyclate 100 mg/ (Sodium Chloride) 100 mls @ 100 mls/hr IV ONETIME ONE Stop: 03/17/17 14:59 Assessment/Plan Comment:: ASSESSMENT AND PLAN BILATERAL PNEUMONIA-abrupt onset of weakness with lightheadedness resulting in syncope earlier today. CT scan of the chest shows evidence of bilateral pneumonia, no evidence of recurrent pulmonary embolism. Likely viral in nature, she has not had significant temperature elevation and her white blood cell count is within normal range. She did have influenza A a few weeks ago, current influenza antigens are negative. Lactic acid level is normal, heart rate borderline elevated. She recently completed a course of levofloxacin as an outpatient. -IV fluids for hydration -Blood and sputum cultures pending -IV antibiotic therapy pending culture results; doxycycline and Azactam, because of severe allergies and recent course of levofloxacin LOW BACK PAIN-onset associated with her syncope and fall earlier today. X-ray shows no evidence of compression fracture. -Oxycodone for pain as needed -Consider CT scan for further evaluation if pain persists RECENT PULMONARY EMBOLISM-no evidence of new embolism noted on CT scan -Continue current therapy with Eliquis MAINTENANCE ISSUES -DVT prophylaxis; current therapy with Eliquis should provide adequate DVT prophylaxis -GI prophylaxis; not indicated -Garcia catheter; not indicated -Nutrition; regular diet -Nicotine dependence; not required CODE STATUS-FULL CODE ADMISSION STATUS-patient will be admitted to inpatient status, expect at least a 2 night hospital stay for evaluation and management of problems as outlined above. At the time of this admission I do not reasonably expected evaluation and management of this problem will require more than a 96 hour hospital stay. DISPOSITION-anticipate discharge to home after the hospital stay. PRIMARY CARE PROVIDER-Dr. Dowling
[2017-03-17] MEDS ORDERED: Aztreonam/Dextrose-Water 1 GM in Premix Bag 1 BAG IV ONE (14:00)
[2017-03-17] MEDS ORDERED: Doxycycline 100 MG in Sodium Chloride 0.9% 100 ML IV ONE (14:00)
[2017-03-17] MEDS ORDERED: Polyethylene Glycol 3350 Powder 17 GM Packet PO PRN (14:14)
[2017-03-17] MEDS ORDERED: Magnesium Hydroxide 400 MG/5 ML Susp 30 ML Cup PO PRN (14:14)
[2017-03-17] MEDS ORDERED: oxyCODONE 5 MG Tab PO PRN (14:14)
[2017-03-17] MEDS ORDERED: Ondansetron 4 MG/2 ML SDV IV PRN (14:14)
[2017-03-17] MEDS: Doxycycline 100 MG in Sodium Chloride 0.9% 100 ML IV SCH (15:09)
[2017-03-17] MEDS: Lactated Ringers 500 ML IV SCH ×2 (15:22→17:25)
[2017-03-17] MEDS: Lactated Ringers 1,000 ML IV SCH (19:41)
[2017-03-17] MEDS: Apixaban 5 MG Tab PO SCH (20:59)
[2017-03-17] MEDS: Aztreonam/Dextrose-Water 1 GM in Premix Bag 1 BAG IV SCH (21:01)
[2017-03-18] MEDS: Doxycycline 100 MG in Sodium Chloride 0.9% 100 ML IV SCH ×2 (01:43→13:45)
[2017-03-18] MEDS: Lactated Ringers 1,000 ML IV SCH (04:20)
[2017-03-18] MEDS: Acetaminophen 325 MG Tab PO PRN ×2 (05:20→12:50)
[2017-03-18] MEDS: Albuterol 0.083% 2.5 MG/3 ML Neb Soln NEB PRN (05:30)
[2017-03-18] MEDS: Aztreonam/Dextrose-Water 1 GM in Premix Bag 1 BAG IV SCH ×3 (06:00→22:08)
[2017-03-18] MEDS ORDERED: Magnesium Sulfate/Water 2 GM in Premix Bag 1 BAG IV ONE (09:00)
[2017-03-18] MEDS: Magnesium Oxide 400 MG Tab PO SCH ×2 (09:36→20:00)
[2017-03-18] MEDS: Apixaban 5 MG Tab PO SCH ×2 (09:36→20:00)
--- NOTE | 2017-03-18 11:10 | PCM.PN ---
- General Info Date of Service: 03/18/17 Subjective Update: Ms. Aceves has been stable since admission, she did have temperature elevation during the night but none since then. Continues to require supplemental oxygen but has noted no worsening since admission. - Patient Data Vitals - Most Recent: Last Vital Signs Temp 98.5 F 03/18/17 07:26 Pulse 85 03/18/17 07:26 Resp 18 03/18/17 07:26 BP 95/73 03/18/17 07:26 Pulse Ox 95 03/18/17 07:26 Orthostatic Blood Pressure [ 123/55 Standing] Orthostatic Blood Pressure [ 123/71 Sitting] Orthostatic Blood Pressure [ 134/67 Supine] Weight - Most Recent: 131 lb I&O - Last 24 Hours: Intake & Output 03/17/17 03/18/17 03/18/17 22:59 06:59 14:59 Intake Total 3386 1088 250 Output Total 250 Balance 3136 1088 250 Lab Results Last 24 Hours: Laboratory Results - last 24 hr 03/18/17 03/18/17 Range/Units 05:50 05:50 WBC 7.9 (4.5-11.0) K/uL RBC 3.99 (3.30-5.50) M/uL Hgb 11.8 L (12.0-15.0) g/dL Hct 37.7 (36.0-48.0) % MCV 95 (80-98) fL MCH 30 (27-31) pg MCHC 31 L (32-36) % Plt Count 306 (150-400) K/uL Neut % (Auto) 64 (36-66) % Lymph % (Auto) 23 L (24-44) % [place] % (Auto) 11 H (2-6) % Eos % (Auto) 2 (2-4) % Baso % (Auto) 0 (0-1) % Sodium 140 (140-148) mmol/L Potassium 3.8 (3.6-5.2) mmol/L Chloride 107 (100-108) mmol/L Carbon Dioxide 27 (21-32) mmol/L Anion Gap 6.3 (5.0-14.0) mmol/L BUN 5 L (7-18) mg/dL Creatinine 0.7 (0.6-1.0) mg/dL Est Cr Clr Drug Dosing 48.89 mL/min Estimated GFR (MDRD) > 60 (>60) Glucose 94 (74-106) mg/dL Calcium 8.2 L (8.5-10.1) mg/dL Magnesium 1.6 L (1.8-2.4) mg/dL Naun Results Last 24 Hours: Microbiology 03/17/17 16:01 Gram Stain - Final Sputum - Expectorated Med Orders - Current: Current Medications Acetaminophen (Tylenol) 650 mg PO Q4H PRN PRN Reason: Pain (Mild 1-3)/fever Last Admin: 03/18/17 05:20 Dose: 650 mg Albuterol (Proventil Neb Soln) 2.5 mg NEB Q4H PRN PRN Reason: Shortness Of Breath/wheezing Last Admin: 03/18/17 05:30 Dose: 2.5 mg Apixaban (Eliquis) 5 mg PO BID [facility] Last Admin: 03/18/17 09:36 Dose: 5 mg Doxycycline Hyclate 100 mg/ (Sodium Chloride) 100 mls @ 100 mls/hr IV Q12H [facility] Last Admin: 03/18/17 01:43 Dose: 100 mls/hr Aztreonam/Dextrose 1 gm/ (Premix) 50 mls @ 100 mls/hr IV Q8HR [facility] Last Admin: 03/18/17 06:00 Dose: 100 mls/hr Magnesium Hydroxide (Milk Of Magnesia) 30 ml PO Q12H PRN PRN Reason: Constipation Magnesium Oxide (Magnesium Oxide) 400 mg PO BID [facility] Last Admin: 03/18/17 09:36 Dose: 400 mg Ondansetron HCl (Zofran) 4 mg IV Q4H PRN PRN Reason: Nausea/Vomiting Last Admin: 03/18/17 05:40 Dose: 4 mg Oxycodone HCl (Oxycodone) 5 mg PO Q4H PRN PRN Reason: Pain (moderate 4-6) Polyethylene Glycol (Miralax) 17 gm PO DAILY PRN PRN Reason: Constipation Senna/Docusate Sodium (Senna Plus) 1 tab PO BID PRN PRN Reason: Constipation Sodium Chloride (Saline Flush) 10 ml FLUSH ASDIRECTED PRN PRN Reason: Keep Vein Open Discontinued Medications Sodium Chloride (Normal Saline) 1,000 mls @ 999 mls/hr IV ASDIRECTED [facility] Last Admin: 03/17/17 11:31 Dose: 999 mls/hr Sodium Chloride (Normal Saline) 100 mls @ 4 mls/sec IV ASDIRECTED [facility] Stop: 03/17/17 13:00 Last Admin: 03/17/17 11:57 Dose: 4 mls/sec Sodium Chloride (Normal Saline) 1,000 mls @ 400 mls/hr IV ASDIRECTED [facility] Last Admin: 03/17/17 12:54 Dose: 400 mls/hr Levofloxacin/Dextrose 750 mg/ (Premix) 150 mls @ 100 mls/hr IV Q24H [facility] Aztreonam/Dextrose 1 gm/ (Premix) 50 mls @ 100 mls/hr IV ONETIME ONE Stop: 03/17/17 14:29 Last Admin: 03/17/17 13:59 Dose: 100 mls/hr Lactated Ringer's (Ringers, Lactated) 500 mls @ 250 mls/hr IV .BOLUS [facility] Stop: 03/17/17 18:15 Last Admin: 03/17/17 17:25 Dose: 250 mls/hr Lactated Ringer's (Ringers, Lactated) 1,000 mls @ 125 mls/hr IV ASDIRECTED [facility] Last Admin: 03/18/17 04:20 Dose: 125 mls/hr Magnesium Sulfate 2 gm/ Premix 50 mls @ 25 mls/hr IV ONETIME ONE Stop: 03/18/17 10:59 Last Admin: 03/18/17 09:36 Dose: 25 mls/hr Iopamidol (Isovue-370 (76%)) 100 ml IV . DIRECTED [facility] Stop: 03/17/17 13:00 Last Admin: 03/17/17 11:57 Dose: 100 ml Sodium Chloride (Saline Flush) 10 ml FLUSH ONETIME PRN PRN Reason: per radiology protocol Stop: 03/17/17 13:00 Last Admin: 03/17/17 11:57 Dose: 10 ml - Exam Quality Assessment: Supplemental Oxygen, DVT Prophylaxis General: Alert, Oriented, Cooperative, Mild Distress Lungs: Decreased Breath Sounds, Wheezing. No: Crackles, Rales, Rhonchi Cardiovascular: Regular Rate, Regular Rhythm, Murmurs GI/Abdominal Exam: Soft, Non-Tender, No Organomegaly, No Distention Extremities: Non-Tender, No Pedal Edema Skin: Warm, Dry, Intact - Problem List Review Problem List Initiated/Reviewed/Updated: Yes - My Orders Last 24 Hours: My Active Orders 03/17/17 13:28 Resuscitation Status Routine 03/17/17 14:14 Patient Status [ADT] Routine Ambulate [RC] QID Height and Weight [RC] 0500 Intake and Output [RC] QSHIFT Notify Provider Vital Signs [RC] ASDIRECTED Orthostatic Vital Signs [RC] Q6H Oxygen Therapy [RC] PRN Peripheral IV Care [RC] Q12H RT Aerosol Therapy [RC] ASDIRECTED Up With Assistance [RC] ASDIRECTED Up to Chair [RC] QID VTE/DVT Education [RC] Per Unit Routine Vital Signs [RC] Q4H PT Evaluation and Treatment [CONS] Routine Acetaminophen [Tylenol] 650 mg PO Q4H PRN Albuterol [Proventil Neb Soln] 2.5 mg NEB Q4H PRN Docusate Sodium/Sennosides [Senna Plus] 1 tab PO BID PRN Magnesium Hydroxide [Milk of Magnesia] 30 ml PO Q12H PRN Ondansetron [Zofran] 4 mg IV Q4H PRN Polyethylene Glycol 3350 [MiraLAX] 17 gm PO DAILY PRN Sodium Chloride 0.9% [Saline Flush] 10 ml FLUSH ASDIRECTED PRN oxyCODONE 5 mg PO Q4H PRN Peripheral IV Insertion Adult [OM.PC] Routine VTE Pharmacological Contraindications [AST] Per Unit Routine 03/17/17 Lunch Regular Diet [DIET] 03/18/17 09:00 Magnesium Oxide 400 mg PO BID 03/18/17 11:06 Convert IV to Saline Lock [OM.PC] Routine 03/18/17 11:07 Discontinue Telemetry Monitoring [Cardiac Monitoring Discontinue] [RC] Click to Edit 03/19/17 05:00 BASIC METABOLIC PANEL,BMP [CHEM] Timed MAGNESIUM [CHEM] Timed - Plan Plan:: ASSESSMENT AND PLAN BILATERAL PNEUMONIA-CT scan of the chest shows evidence of bilateral pneumonia, no evidence of recurrent pulmonary embolism. Likely viral in nature, she has not had significant temperature elevation and her white blood cell count is within normal range. She did have influenza A a few weeks ago, current influenza antigens are negative. She has been stable with current management, orthostasis has resolved with IV fluids. -Saline lock IV -Blood and sputum cultures pending -IV antibiotic therapy pending culture results; doxycycline and Azactam, because of severe allergies and recent course of levofloxacin LOW BACK PAIN-onset associated with her syncope and fall yesterday. X-ray shows no evidence of compression fracture. Back pain has improved significantly since admission -Oxycodone for pain as needed -Consider CT scan for further evaluation if pain persists RECENT PULMONARY EMBOLISM-no evidence of new embolism noted on CT scan -Continue current therapy with Eliquis MAINTENANCE ISSUES -DVT prophylaxis; current therapy with Eliquis should provide adequate DVT prophylaxis -GI prophylaxis; not indicated -Garcia catheter; not indicated -Nutrition; regular diet -Nicotine dependence; not required CODE STATUS-FULL CODE ADMISSION STATUS-patient will be admitted to inpatient status, expect at least a 2 night hospital stay for evaluation and management of problems as outlined above. At the time of this admission I do not reasonably expected evaluation and management of this problem will require more than a 96 hour hospital stay. DISPOSITION-anticipate discharge to home after the hospital stay. PRIMARY CARE PROVIDER-Dr. Dowling
[2017-03-18] MEDS ORDERED: Ibuprofen 200 MG Tab PO PRN (12:51)
[2017-03-18] MEDS: Doxycycline 100 MG Cap PO SCH (20:00)
[2017-03-19] MEDS: Aztreonam/Dextrose-Water 1 GM in Premix Bag 1 BAG IV SCH (05:43)
[2017-03-19] MEDS: Magnesium Oxide 400 MG Tab PO SCH ×2 (08:50→21:20)
[2017-03-19] MEDS: Apixaban 5 MG Tab PO SCH ×2 (08:51→21:20)
[2017-03-19] MEDS: Doxycycline 100 MG Cap PO SCH ×2 (08:51→21:20)
--- NOTE | 2017-03-19 10:42 | PCM.PN ---
- General Info Date of Service: 03/19/17 Subjective Update: Ms. Aceves has improved over the past 24 hours, she has remained afebrile and has been hemodynamically stable. Has not required supplemental oxygen while at rest, shortness of breath has improved. Cough has become nonproductive and she' s had difficulty clearing secretions since last night. - Review of Systems General: Reports: Weakness. Denies: Fever, Chills Pulmonary: Reports: Shortness of Breath, Cough. Denies: Pleuritic Chest Pain, Sputum, Hemoptysis, Wheezing Cardiovascular: Reports: Dyspnea on Exertion. Denies: Chest Pain, Palpitations , Orthopnea, PND, Edema Gastrointestinal: Reports: No Symptoms - Patient Data Vitals - Most Recent: Last Vital Signs Temp 98.5 F 03/19/17 07:29 Pulse 86 03/19/17 07:29 Resp 22 H 03/19/17 07:29 BP 118/60 03/19/17 07:29 Pulse Ox 91 L 03/19/17 09:02 Orthostatic Blood Pressure [ 123/55 Standing] Orthostatic Blood Pressure [ 123/71 Sitting] Orthostatic Blood Pressure [ 134/67 Supine] Weight - Most Recent: 136 lb 6.4 oz I&O - Last 24 Hours: Intake & Output 03/18/17 03/19/17 03/19/17 22:59 06:59 14:59 Intake Total 400 330 Output Total 900 Balance 400 -570 Lab Results Last 24 Hours: Laboratory Results - last 24 hr 03/19/17 Range/Units 04:26 Sodium 143 (140-148) mmol/L Potassium 4.4 (3.6-5.2) mmol/L Chloride 108 (100-108) mmol/L Carbon Dioxide 29 (21-32) mmol/L Anion Gap 6.5 (5.0-14.0) mmol/L BUN 11 D (7-18) mg/dL Creatinine 0.8 (0.6-1.0) mg/dL Est Cr Clr Drug Dosing 43.09 mL/min Estimated GFR (MDRD) > 60 (>60) Glucose 79 (74-106) mg/dL Calcium 8.3 L (8.5-10.1) mg/dL Magnesium 2.0 (1.8-2.4) mg/dL Naun Results Last 24 Hours: Microbiology 03/17/17 16:01 Gram Stain - Final Sputum - Expectorated Respiratory Culture - Preliminary NORMAL RESPIRATORY ATIYA 1 DAY Med Orders - Current: Current Medications Acetaminophen (Tylenol) 650 mg PO Q4H PRN PRN Reason: Pain (Mild 1-3)/fever Last Admin: 03/18/17 12:50 Dose: 650 mg Acetylcysteine (Mucomyst 20%) 200 mg NEB BIDRT [facility] Albuterol (Proventil Neb Soln) 2.5 mg NEB Q4H PRN PRN Reason: Shortness Of Breath/wheezing Last Admin: 03/18/17 05:30 Dose: 2.5 mg Apixaban (Eliquis) 5 mg PO BID [facility] Last Admin: 03/19/17 08:51 Dose: 5 mg Doxycycline Hyclate (Vibramycin) 100 mg PO BID [facility] Last Admin: 03/19/17 08:51 Dose: 100 mg Ibuprofen (Motrin) 200 mg PO Q6H PRN PRN Reason: Pain Last Admin: 03/18/17 18:17 Dose: 200 mg Lactobacillus Rhamnosus (Culturelle) 2 cap PO BID [facility] Magnesium Hydroxide (Milk Of Magnesia) 30 ml PO Q12H PRN PRN Reason: Constipation Magnesium Oxide (Magnesium Oxide) 400 mg PO BID [facility] Last Admin: 03/19/17 08:50 Dose: 400 mg Ondansetron HCl (Zofran) 4 mg IV Q4H PRN PRN Reason: Nausea/Vomiting Last Admin: 03/18/17 05:40 Dose: 4 mg Oxycodone HCl (Oxycodone) 5 mg PO Q4H PRN PRN Reason: Pain (moderate 4-6) Polyethylene Glycol (Miralax) 17 gm PO DAILY PRN PRN Reason: Constipation Senna/Docusate Sodium (Senna Plus) 1 tab PO BID PRN PRN Reason: Constipation Sodium Chloride (Saline Flush) 10 ml FLUSH ASDIRECTED PRN PRN Reason: Keep Vein Open Discontinued Medications Sodium Chloride (Normal Saline) 1,000 mls @ 999 mls/hr IV ASDIRECTED [facility] Last Admin: 03/17/17 11:31 Dose: 999 mls/hr Sodium Chloride (Normal Saline) 100 mls @ 4 mls/sec IV ASDIRECTED [facility] Stop: 03/17/17 13:00 Last Admin: 03/17/17 11:57 Dose: 4 mls/sec Sodium Chloride (Normal Saline) 1,000 mls @ 400 mls/hr IV ASDIRECTED [facility] Last Admin: 03/17/17 12:54 Dose: 400 mls/hr Levofloxacin/Dextrose 750 mg/ (Premix) 150 mls @ 100 mls/hr IV Q24H [facility] Doxycycline Hyclate 100 mg/ (Sodium Chloride) 100 mls @ 100 mls/hr IV Q12H [facility] Last Admin: 03/18/17 13:45 Dose: 100 mls/hr Aztreonam/Dextrose 1 gm/ (Premix) 50 mls @ 100 mls/hr IV Q8HR [facility] Last Admin: 03/19/17 05:43 Dose: 100 mls/hr Aztreonam/Dextrose 1 gm/ (Premix) 50 mls @ 100 mls/hr IV ONETIME ONE Stop: 03/17/17 14:29 Last Admin: 03/17/17 13:59 Dose: 100 mls/hr Lactated Ringer's (Ringers, Lactated) 500 mls @ 250 mls/hr IV .BOLUS [facility] Stop: 03/17/17 18:15 Last Admin: 03/17/17 17:25 Dose: 250 mls/hr Lactated Ringer's (Ringers, Lactated) 1,000 mls @ 125 mls/hr IV ASDIRECTED [facility] Last Admin: 03/18/17 04:20 Dose: 125 mls/hr Magnesium Sulfate 2 gm/ Premix 50 mls @ 25 mls/hr IV ONETIME ONE Stop: 03/18/17 10:59 Last Admin: 03/18/17 09:36 Dose: 25 mls/hr Iopamidol (Isovue-370 (76%)) 100 ml IV . DIRECTED [facility] Stop: 03/17/17 13:00 Last Admin: 03/17/17 11:57 Dose: 100 ml Sodium Chloride (Saline Flush) 10 ml FLUSH ONETIME PRN PRN Reason: per radiology protocol Stop: 03/17/17 13:00 Last Admin: 03/17/17 11:57 Dose: 10 ml - Exam Quality Assessment: DVT Prophylaxis General: Alert, Oriented, Cooperative, Mild Distress Lungs: Decreased Breath Sounds. No: Rales, Rhonchi, Wheezing Cardiovascular: Regular Rate, Regular Rhythm, No Murmurs GI/Abdominal Exam: Soft, Non-Tender, No Organomegaly, No Distention Extremities: Non-Tender, No Pedal Edema Skin: Warm, Dry, Intact - Problem List Review Problem List Initiated/Reviewed/Updated: Yes - My Orders Last 24 Hours: My Active Orders 03/18/17 11:06 Convert IV to Saline Lock [OM.PC] Routine 03/18/17 12:51 Ibuprofen [Motrin] 200 mg PO Q6H PRN 03/18/17 21:00 Doxycycline [Vibramycin] 100 mg PO BID 03/19/17 10:37 RT Aerosol Therapy [RC] ASDIRECTED Acetylcysteine [Mucomyst 20%] 200 mg NEB BIDRT RT Acapella [RESPCARE] Routine 03/19/17 10:45 Lactobacillus Rhamnosus GG [Culturelle] 2 cap PO BID - Plan Plan:: ASSESSMENT AND PLAN BILATERAL PNEUMONIA-CT scan of the chest shows evidence of bilateral pneumonia, no evidence of recurrent pulmonary embolism. Likely viral in nature, she has not had significant temperature elevation and her white blood cell count is within normal range. She did have influenza A a few weeks ago, current influenza antigens are negative. Improved over the last 24 hours with resolution of fever, improvement in shortness of breath, cough remains nonproductive -Saline lock IV -Blood and sputum cultures negative thus far -Doxycycline 100 mg by mouth twice a day -Discontinue IV as Azactam -Acapella every hour while awake -Recommend neb twice a day LOW BACK PAIN-onset associated with her syncope and fall yesterday. X-ray shows no evidence of compression fracture. Back pain has improved significantly since admission -Oxycodone for pain as needed RECENT PULMONARY EMBOLISM-no evidence of new embolism noted on CT scan -Continue current therapy with Eliquis MAINTENANCE ISSUES -DVT prophylaxis; current therapy with Eliquis should provide adequate DVT prophylaxis -GI prophylaxis; not indicated -Garcia catheter; not indicated -Nutrition; regular diet -Nicotine dependence; not required CODE STATUS-FULL CODE ADMISSION STATUS-patient will be admitted to inpatient status, expect at least a 2 night hospital stay for evaluation and management of problems as outlined above. At the time of this admission I do not reasonably expected evaluation and management of this problem will require more than a 96 hour hospital stay. DISPOSITION-anticipate discharge to home tomorrow PRIMARY CARE PROVIDER-Dr. Dowling
[2017-03-19] MEDS: Albuterol 0.083% 2.5 MG/3 ML Neb Soln NEB PRN (10:58)
[2017-03-19] MEDS ORDERED: Acetylcysteine 20% 200 MG/ML 4 ML Nebulizer Soln SDV NEB ONE (11:00)
[2017-03-19] MEDS: Lactobacillus Rhamnosus GG (Probiotic) Cap PO SCH ×2 (12:40→21:20)
[2017-03-19] MEDS: Acetylcysteine 20% 200 MG/ML 4 ML Nebulizer Soln SDV NEB SCH (21:30)
[2017-03-19] MEDS: Acetaminophen 325 MG Tab PO PRN (23:02)
[2017-03-20] MEDS: Albuterol 0.083% 2.5 MG/3 ML Neb Soln NEB PRN (07:30)
[2017-03-20] MEDS: Acetylcysteine 20% 200 MG/ML 4 ML Nebulizer Soln SDV NEB SCH (07:31)
[2017-03-20 09:33] VITALS: BP 122/59
[2017-03-20] MEDS: Doxycycline 100 MG Cap PO SCH (09:57)
[2017-03-20] MEDS: Apixaban 5 MG Tab PO SCH (09:58)
[2017-03-20] MEDS: Magnesium Oxide 400 MG Tab PO SCH (09:58)
[2017-03-20] MEDS: Lactobacillus Rhamnosus GG (Probiotic) Cap PO SCH (09:58)
--- NOTE | 2017-03-20 10:15 | PCM.DCSUM1 ---
Discharge Summary - Hospital Course Brief History: Ms. Aceves is an 87-year-old woman who was admitted through the emergency department with shortness of breath and cough secondary to bilateral pneumonia and COPD exacerbation. - Discharge Data Discharge Date: 03/20/17 Discharge Disposition: Home, Self-Care 01 Condition: Fair - Discharge Diagnosis/Problem(s) (1) COPD with exacerbation SNOMED Code(s): 125710670 ICD Code: J44.1 - CHRONIC OBSTRUCTIVE PULMONARY DISEASE W (ACUTE) EXACERBATION Status: Acute Current Visit: Yes (2) Bilateral pneumonia SNOMED Code(s): 798147461 ICD Code: J18.9 - PNEUMONIA, UNSPECIFIED ORGANISM Status: Acute Current Visit: Yes (3) Hypoxia SNOMED Code(s): 007122612 ICD Code: R09.02 - HYPOXEMIA Status: Acute Current Visit: Yes - Patient Summary/Data Consults: Consultations 03/17/17 14:14 PT Evaluation and Treatment [CONS] Routine Please Evaluate and Treat. PT Reason for Consult: Strengthening This query below is only for informational purposes and is not editable. Hospital Course: Ms. Aceves is an 87-year-old woman who is admitted through the emergency department with hypoxia, shortness of breath, cough, and weakness. These symptoms of developed prior to admission and gradually worsened over a period of a few days. She is known COPD but does not require supplemental oxygen at home. On evaluation emergency room department was noted to have low oxygen levels and did receive supplemental oxygen. White blood cell count was normal, chest x-ray did show bilateral pulmonary infiltrates. Blood and sputum cultures were obtained and remained negative up until the time of discharge. She was given IV fluids for hydration and started on IV antibiotic therapy with doxycycline and Azactam. She has multiple medication allergies and it just completed a course of oral antibiotic therapy with levofloxacin. When cultures appeared to be negative the exact time was discontinued and she was converted to oral doxycycline to cover for the possibility of underlying bacterial component. By the time of discharge was off oxygen although still continued to feel somewhat weak. She had been seen and evaluated by physical therapy during the hospital stay. We suggested home care with home physical therapy after discharge which she refused. She will be discharged on additional 4 days of oral antibiotic therapy with doxycycline. Activity will be as tolerated and she will resume her usual diet. Follow-up appointment will be scheduled with her primary care provider within one week. - Patient Instructions Diet: Usual Diet as Tolerated Activity: As Tolerated Other/Special Instructions: Please schedule follow-up appointment with primary care provider within one week. - Discharge Plan Prescriptions/Med Rec: Doxycycline Calcium [IMW: Doxycycline] 100 mg PO BID #8 capsule Home Medications: Home Meds Calcium Carbonate/Vitamin D3 [Calcium 600-Vit D3 200 Tablet] 1 cap PO BID [History] [place]-3 Fatty Acids [[place]-3] 1,000 mg PO DAILY 02/22/14 [History] Cholecalciferol (Vitamin D3) [Vitamin D3] 1,000 unit PO DAILY 03/03/17 [History] Ondansetron [Ondansetron ODT] 4 mg PO ASDIRECTED PRN 03/03/17 [History] Apixaban [Eliquis] 1 tab PO BID 03/17/17 [History] Multivitamin [Gummi Bear Multivitamin] 2 tab PO DAILY 03/17/17 [History] Doxycycline Calcium [IMW: Doxycycline] 100 mg PO BID #8 capsule 03/20/17 [Rx] Referrals: PCP,None [Primary Care Provider] - - Patient Data Vitals - Most Recent: Last Vital Signs Temp 97.9 F 03/20/17 08:00 Pulse 89 03/20/17 08:00 Resp 16 03/20/17 08:00 BP 122/59 L 03/20/17 08:00 Pulse Ox 92 L 03/20/17 08:00 Orthostatic Blood Pressure [ 123/55 Standing] Orthostatic Blood Pressure [ 123/71 Sitting] Orthostatic Blood Pressure [ 134/67 Supine] Weight - Most Recent: 136 lb 4 oz I&O - Last 24 hours: Intake & Output 03/19/17 03/20/17 03/20/17 22:59 06:59 14:59 Intake Total 368 Output Total 350 Balance 368 -350 MORENO Results - Last 24 hrs: Microbiology 03/17/17 16:01 Gram Stain - Final Sputum - Expectorated Respiratory Culture - Final NORMAL RESPIRATORY ATIYA 2 DAYS Med Orders - Current: Current Medications Acetaminophen (Tylenol) 650 mg PO Q4H PRN PRN Reason: Pain (Mild 1-3)/fever Last Admin: 03/19/17 23:02 Dose: 650 mg Acetylcysteine (Mucomyst 20%) 200 mg NEB BIDRT [facility] Last Admin: 03/20/17 07:31 Dose: 200 mg Albuterol (Proventil Neb Soln) 2.5 mg NEB Q4H PRN PRN Reason: Shortness Of Breath/wheezing Last Admin: 03/20/17 07:30 Dose: 2.5 mg Apixaban (Eliquis) 5 mg PO BID [facility] [place] Last Admin: 03/20/17 09:58 Dose: 5 mg Doxycycline Hyclate (Vibramycin) 100 mg PO BID [facility] Last Admin: 03/20/17 09:57 Dose: 100 mg Ibuprofen (Motrin) 200 mg PO Q6H PRN PRN Reason: Pain Last Admin: 03/18/17 18:17 Dose: 200 mg Lactobacillus Rhamnosus (Culturelle) 2 cap PO BID [facility] [place] Last Admin: 03/20/17 09:58 Dose: 2 cap Magnesium Hydroxide (Milk Of Magnesia) 30 ml PO Q12H PRN PRN Reason: Constipation Magnesium Oxide (Magnesium Oxide) 400 mg PO BID [facility] [place] Last Admin: 03/20/17 09:58 Dose: 400 mg Ondansetron HCl (Zofran) 4 mg IV Q4H PRN PRN Reason: Nausea/Vomiting Last Admin: 03/18/17 05:40 Dose: 4 mg Oxycodone HCl (Oxycodone) 5 mg PO Q4H PRN PRN Reason: Pain (moderate 4-6) Polyethylene Glycol (Miralax) 17 gm PO DAILY PRN PRN Reason: Constipation Senna/Docusate Sodium (Senna Plus) 1 tab PO BID PRN PRN Reason: Constipation Sodium Chloride (Saline Flush) 10 ml FLUSH ASDIRECTED PRN PRN Reason: Keep Vein Open Discontinued Medications Acetylcysteine (Mucomyst 20%) 200 mg NEB ONETIME ONE Stop: 03/19/17 11:01 Last Admin: 03/19/17 10:59 Dose: 200 mg Sodium Chloride (Normal Saline) 1,000 mls @ 999 mls/hr IV ASDIRECTED [facility] Last Admin: 03/17/17 11:31 Dose: 999 mls/hr Sodium Chloride (Normal Saline) 100 mls @ 4 mls/sec IV ASDIRECTED [facility] [place] Stop: 03/17/17 13:00 Last Admin: 03/17/17 11:57 Dose: 4 mls/sec Sodium Chloride (Normal Saline) 1,000 mls @ 400 mls/hr IV ASDIRECTED [facility] Last Admin: 03/17/17 12:54 Dose: 400 mls/hr Levofloxacin/Dextrose 750 mg/ (Premix) 150 mls @ 100 mls/hr IV Q24H [facility] Doxycycline Hyclate 100 mg/ (Sodium Chloride) 100 mls @ 100 mls/hr IV Q12H [facility] Last Admin: 03/18/17 13:45 Dose: 100 mls/hr Aztreonam/Dextrose 1 gm/ (Premix) 50 mls @ 100 mls/hr IV Q8HR [facility] [place] Last Admin: 03/19/17 05:43 Dose: 100 mls/hr Aztreonam/Dextrose 1 gm/ (Premix) 50 mls @ 100 mls/hr IV ONETIME ONE Stop: 03/17/17 14:29 Last Admin: 03/17/17 13:59 Dose: 100 mls/hr Lactated Ringer's (Ringers, Lactated) 500 mls @ 250 mls/hr IV .BOLUS [facility] Stop: 03/17/17 18:15 Last Admin: 03/17/17 17:25 Dose: 250 mls/hr Lactated Ringer's (Ringers, Lactated) 1,000 mls @ 125 mls/hr IV ASDIRECTED [facility] [place] Last Admin: 03/18/17 04:20 Dose: 125 mls/hr Magnesium Sulfate 2 gm/ Premix 50 mls @ 25 mls/hr IV ONETIME ONE Stop: 03/18/17 10:59 Last Admin: 03/18/17 09:36 Dose: 25 mls/hr Iopamidol (Isovue-370 (76%)) 100 ml IV . DIRECTED [facility] [place] Stop: 03/17/17 13:00 Last Admin: 03/17/17 11:57 Dose: 100 ml Sodium Chloride (Saline Flush) 10 ml FLUSH ONETIME PRN PRN Reason: per radiology protocol Stop: 03/17/17 13:00 Last Admin: 03/17/17 11:57 Dose: 10 ml *Q Meaningful Use (DIS) - VTE *Q VTE Criteria *Q: VTE Pharmacological Contraindications *Q: High INR Value - Stroke *Q Stroke Criteria *Q: - AMI *Q AMI Criteria *Q:
== END 2017-03-20 12:00 | disposition home or self-care (01) | DRG 190 ==
LOC: JP.ED 10:33 → JP.MS 13:27
PROVIDERS: ADMIT Hospitalist; ATTEND Hospitalist
DX: J44.0 Chronic obstructive pulmonary disease with (acute) lower respiratory infection (principal); J18.9 Pneumonia, unspecified organism; J44.1 Chronic obstructive pulmonary disease with (acute) exacerbation; E86.0 Dehydration; J44.9 Chronic obstructive pulmonary disease, unspecified; Z86.711 Personal history of pulmonary embolism; Z86.19 Personal history of other infectious and parasitic diseases; R09.02 Hypoxemia; R06.02 Shortness of breath; R55 Syncope and collapse; R53.1 Weakness; M54.5 Low back pain; W19.XXXA Unspecified fall, initial encounter; M19.90 Unspecified osteoarthritis, unspecified site; E78.00 Pure hypercholesterolemia, unspecified; Z87.01 Personal history of pneumonia (recurrent); Z87.440 Personal history of urinary (tract) infections; Z79.01 Long term (current) use of anticoagulants; Z88.1 Allergy status to other antibiotic agents; Z91.040 Latex allergy status; Z88.0 Allergy status to penicillin
CPT/HCPCS: 36415; 71275 ×2; 72110 ×2; 80053; 81001; 83605; 83735; 85025; 85610; 85730; 87040 ×2; 87804 ×2; 93005; 96360; 96361; 99285; J7030; J7040 ×2; J7050; Q9967; 80048; 87070; 87205; 93010; 94640; 94667; 97110-GP; 97162-GP; 97530-GP; 97535-GP; 99284; A9270-GY; J2405; J3475; J3490; J7120

== ENCOUNTER 2017-04-16 12:08 | Emergency (ER) | payer MEDICARE, MEDICAID ==
[2017-04-16 13:28] VITALS: BP 135/68
--- NOTE | 2017-04-16 14:05 | EDM.PDOC ---
ED HPI GENERAL MEDICAL PROBLEM - General Chief Complaint: General Stated Complaint: WEAK/ALMOST FAINTED Time Seen by Provider: 04/16/17 13:50 Source of Information: Reports: Patient, Family, Old Records History Limitations: Reports: No Limitations - History of Present Illness INITIAL COMMENTS - FREE TEXT/NARRATIVE: 87 yo female with a pHx of syncope presents after a near syncopal spell that occurred earlier today at home. She thinks the spell lasted about 20 minutes, but has since resolved. She denies any CP, fever, SOB, MCQUEEN, bleeding, diarrhea, or vomiting. Was weak, dizzy, and somewhat diaphoretic. Recently was dx with influenza and has since finished her tx. She also was recently dx with a PE and is currently still on tx for this. Onset: Today Onset Date: 04/16/17 Onset Time: 12:15 Duration: Minutes: (about 20 min) Location: Reports: Generalized Quality: Reports: Other (no pain) Severity: Moderate (maintained consciousness) Improves with: Reports: Other (? time) Worsens with: Reports: Other (unknown) Context: Reports: Other (Hx of syncope in the past) Associated Symptoms: Reports: Diaphoresis, Weakness. Denies: Fever/Chills, Nausea/Vomiting, Shortness of Breath Treatments [facility]: Reports: Other (see below) (none) - Related Data Allergies Allergy/AdvReac Type Severity Reaction Status Date / Time cefdinir Allergy Intermediate Rash Verified 04/16/17 13:29 Latex, Natural Rubber Allergy Rash Verified 04/16/17 13:29 Penicillins Allergy Anaphylactic Verified 04/16/17 13:29 Shock erythromycin base AdvReac Nausea and Verified 03/17/17 10:58 [Erythromycin Base] Vomiting Home Meds: Home Meds Calcium Carbonate/Vitamin D3 [Calcium 600-Vit D3 200 Tablet] 1 cap PO BID [History] [place]-3 Fatty Acids [[place]-3] 1,000 mg PO DAILY 02/22/14 [History] Cholecalciferol (Vitamin D3) [Vitamin D3] 1,000 unit PO DAILY 03/03/17 [History] Ondansetron [Ondansetron ODT] 4 mg PO ASDIRECTED PRN 03/03/17 [History] Apixaban [Eliquis] 1 tab PO BID 03/17/17 [History] Multivitamin [Gummi Bear Multivitamin] 2 tab PO DAILY 03/17/17 [History] Past Medical History HEENT History: Reports: Cataract, Sinusitis Cardiovascular History: Reports: Blood Clots/VTE/DVT, High Cholesterol Respiratory History: Reports: Bronchitis, Recurrent, Pneumonia, Recurrent Other Gastrointestinal History: CURRENT UTI DX Genitourinary History: Reports: UTI, Recurrent [employer] History: Reports: Musculoskeletal History: Reports: Back Pain, Chronic, Osteoarthritis, Osteoporosis Oncologic (Cancer) History: Reports: Other (See Below) Other Oncologic History: Recent u/s for l breast pain.Results unknown. Dermatologic History: Reports: Urticaria Other Dermatologic History: Herpes Zoster - Infectious Disease History Infectious Disease History: Reports: Chicken Pox, Measles, Mumps, Shingles - Past Surgical History HEENT Surgical History: Reports: Other (See Below) Other Oncologic Surgeries/Procedures: 4 Lumpectomies and partial mastectomy on left breast Social & Family History - Family History Family Medical History: Unobtainable - Tobacco Use Smoking Status *Q: Unknown Ever Smoked Second Hand Smoke Exposure: No - Caffeine Use Caffeine Use: Reports: Coffee, Tea - Alcohol Use Days Per Week of Alcohol Use: 0 - Recreational Drug Use Recreational Drug Use: No ED ROS GENERAL - Review of Systems Review Of Systems: See Below Constitutional: Reports: Weakness, Diaphoresis (now resolved) HEENT: Reports: No Symptoms Respiratory: Reports: No Symptoms Cardiovascular: Reports: No Symptoms GI/Abdominal: Reports: No Symptoms : Reports: No Symptoms Musculoskeletal: Reports: No Symptoms Skin: Reports: Diaphoresis (now resolved) Neurological: Reports: Dizziness (not vertigo) Psychiatric: Reports: No Symptoms ED EXAM, GENERAL - Physical Exam Exam: See Below Exam Limited By: No Limitations General Appearance: Alert, WD/WN, No Apparent Distress Eye Exam: Bilateral Eye: Normal Inspection Ears: Normal External Exam, Normal Canal, Hearing Grossly Normal, Normal TMs Ear Exam: Bilateral Ear: Auricle Normal, Canal Normal, TM normal Nose: Normal Inspection, Normal Mucosa, No Blood Throat/Mouth: Normal Inspection, Normal Lips, Normal Oropharynx, Normal Voice, No Airway Compromise Head: Atraumatic, Normocephalic Neck: Normal Inspection, Supple, Non-Tender Respiratory/Chest: No Respiratory Distress, Lungs Clear, Normal Breath Sounds, No Accessory Muscle Use Cardiovascular: Regular Rate, Rhythm, No Edema GI/Abdominal: Normal Bowel Sounds, Soft, Non-Tender, No Distention Back Exam: Normal Inspection. No: CVA Tenderness (R), CVA Tenderness (L) Extremities: Normal Inspection, Normal Range of Motion, Non-Tender, No Pedal Edema Neurological: Alert, Oriented, CN II-XII Intact, Normal Cognition, No Motor/ Sensory Deficits Psychiatric: Normal Affect, Normal Mood Skin Exam: Warm, Dry, Intact, Normal Color, No Rash Lymphatic: No Adenopathy Course - Vital Signs Text/Narrative:: Orthostats negative Last Recorded V/S: Last Vital Signs Temp 35.9 C 04/16/17 13:24 Pulse 72 04/16/17 13:24 Resp 14 04/16/17 13:24 BP 135/68 04/16/17 13:24 Pulse Ox 96 04/16/17 13:24 Orthostatic Blood Pressure [ 128/89 Standing] Orthostatic Blood Pressure [ 136/82 Sitting] - Orders/Labs/Meds Orders: Active Orders 24 hr Category Date Time Status Cardiac Monitoring [RC] .As Directed Care 04/16/17 13:59 Active Orthostatic Vital Signs [RC] ASDIRECTED Care 04/16/17 14:00 Active Labs: Laboratory Tests 04/16/17 04/16/17 04/16/17 Range/Units 13:59 14:00 14:00 WBC 7.1 (4.5-11.0) K/uL RBC 4.32 (3.30-5.50) M/uL Hgb 13.1 (12.0-15.0) g/dL Hct 41.6 (36.0-48.0) % MCV 96 (80-98) fL MCH 30 (27-31) pg MCHC 32 (32-36) % Plt Count 213 (150-400) K/uL Sodium 138 L (140-148) mmol/L Potassium 4.6 (3.6-5.2) mmol/L Chloride 105 (100-108) mmol/L Carbon Dioxide 29 (21-32) mmol/L Anion Gap 8.6 (5.0-14.0) mmol/L BUN 10 (7-18) mg/dL Creatinine 0.8 (0.6-1.0) mg/dL Est Cr Clr Drug Dosing 42.78 mL/min Estimated GFR (MDRD) > 60 (>60) Glucose 94 (74-106) mg/dL Calcium 9.2 (8.5-10.1) mg/dL Troponin I < 0.017 (0.000-0.056) ng/mL Urine Color Yellow Urine Appearance Cloudy Urine pH 8.0 (4.5-8.0) Ur Specific [place] 1.010 (1.008-1.030) Urine Protein Negative (NEGATIVE) mg/dL Urine Glucose (UA) Normal (NEGATIVE) mg/dL Urine Ketones Negative (NEGATIVE) mg/dL Urine Occult Blood Negative (NEGATIVE) Urine Nitrite Negative (NEGATIVE) Urine Bilirubin Negative (NEGATIVE) Urine Urobilinogen Normal (NORMAL) mg/dL Ur Leukocyte Esterase Negative (NEGATIVE) Urine RBC Not seen (0-5) Urine WBC 0-5 (0-5) Ur Epithelial Cells Few Amorphous Sediment Numerous Urine Bacteria Many Urine Mucus Few Departure - Departure Time of Disposition: 14:49 Disposition: Home, Self-Care 01 Condition: Good Clinical Impression: Near syncope - Discharge Information Referrals: Madeleine Carrera MD [Primary Care Provider] - Forms: ED Department Discharge - My Orders Last 24 Hours: My Active Orders 04/16/17 13:59 Cardiac Monitoring [RC] .As Directed 04/16/17 14:00 Orthostatic Vital Signs [RC] ASDIRECTED - Assessment/Plan Last 24 Hours: My Active Orders 04/16/17 13:59 Cardiac Monitoring [RC] .As Directed 04/16/17 14:00 Orthostatic Vital Signs [RC] ASDIRECTED
== END 2017-04-16 15:13 | disposition home or self-care (01) ==
LOC: JP.ED 12:08
DX: R55 Syncope and collapse (principal); E78.00 Pure hypercholesterolemia, unspecified; Z91.040 Latex allergy status; Z88.1 Allergy status to other antibiotic agents; Z79.899 Other long term (current) drug therapy
CPT/HCPCS: 36415; 80048; 81001; 84484; 85027; 93225; 93226; 99285

== ENCOUNTER 2017-05-08 15:01 | Observation (INO) | payer MEDICARE, MEDICAID ==
--- NOTE | 2017-05-08 15:34 | EDM.PDOC ---
ED HPI GENERAL MEDICAL PROBLEM - General Chief Complaint: Gastrointestinal Problem Stated Complaint: [facility] Time Seen by Provider: 05/08/17 15:34 Source of Information: Reports: Patient, EMS, Family History Limitations: Reports: No Limitations - History of Present Illness INITIAL COMMENTS - FREE TEXT/NARRATIVE: 87-year-old female who was out shopping and feeling okay arrived home and had a very sudden onset of significant vertigo. She was unable to walk and started to have emesis, symptoms were unrelenting so she called her daughter and then ultimately the ambulance. She continued having active emesis in route to the hospital. This has never happened to her before, she also feels she can't focus her eyes and is photophobic. She was recently started on Xarelto for a PE, she has also been diagnosed with influenza this year. She did not fall or sustain any trauma. She denies shortness of breath or chest pain. Onset: Sudden (Within the last hour and half) Severity: Moderate Worsens with: Reports: Movement (Any movement of the head causes marked increase in symptoms, or opening her eyes) Associated Symptoms: Reports: Malaise, Nausea/Vomiting, Other (Visual difficulties, photophobia) - Related Data Allergies Allergy/AdvReac Type Severity Reaction Status Date / Time Penicillins Allergy Severe Anaphylactic Verified 05/09/17 07:08 Shock cefdinir Allergy Intermediate Rash Verified 05/08/17 18:14 Latex, Natural Rubber Allergy Rash Verified 05/08/17 18:14 erythromycin base AdvReac Nausea and Verified 05/08/17 18:14 [Erythromycin Base] Vomiting Home Meds: Home Meds Calcium Carbonate/Vitamin D3 [Calcium 600-Vit D3 200 Tablet] 1 cap PO BID [History] [place]-3 Fatty Acids [[place]-3] 1,000 mg PO DAILY 02/22/14 [History] Cholecalciferol (Vitamin D3) [Vitamin D3] 1,000 unit PO DAILY 03/03/17 [History] Ondansetron [Ondansetron ODT] 4 mg PO ASDIRECTED PRN 03/03/17 [History] Apixaban [Eliquis] 5 mg PO BID 03/17/17 [History] Multivitamin [Gummi Bear Multivitamin] 2 tab PO DAILY 03/17/17 [History] Past Medical History HEENT History: Reports: Cataract, Sinusitis Cardiovascular History: Reports: Blood Clots/VTE/DVT, High Cholesterol Respiratory History: Reports: Bronchitis, Recurrent, Pneumonia, Recurrent Other Gastrointestinal History: CURRENT UTI DX Genitourinary History: Reports: UTI, Recurrent LVN HOME HEALTH History: Reports: Musculoskeletal History: Reports: Back Pain, Chronic, Osteoarthritis, Osteoporosis Oncologic (Cancer) History: Reports: Other (See Below) Other Oncologic History: Recent u/s for l breast pain.Results unknown. Dermatologic History: Reports: Urticaria Other Dermatologic History: Herpes Zoster - Infectious Disease History Infectious Disease History: Reports: Chicken Pox, Measles, Mumps, Shingles - Past Surgical History HEENT Surgical History: Reports: Other (See Below) Other Oncologic Surgeries/Procedures: 4 Lumpectomies and partial mastectomy on left breast Social & Family History - Family History Family Medical History: Unobtainable - Tobacco Use Smoking Status *Q: Never Smoker Second Hand Smoke Exposure: No - Caffeine Use Caffeine Use: Reports: None - Alcohol Use Days Per Week of Alcohol Use: 0 - Recreational Drug Use Recreational Drug Use: No ED ROS GENERAL - Review of Systems Review Of Systems: See Below Constitutional: Reports: Malaise, Weakness. Denies: Fever, Chills HEENT: Reports: Vision Change. Denies: Throat Pain Respiratory: Denies: Shortness of Breath Cardiovascular: Denies: Chest Pain GI/Abdominal: Reports: Nausea, Vomiting. Denies: Abdominal Pain : Reports: No Symptoms Skin: Reports: No Symptoms Neurological: Reports: Dizziness, Headache, Other (Significant vertigo) ED EXAM, GI/ABD - Physical Exam Exam: See Below Exam Limited By: No Limitations General Appearance: Alert, Moderate Distress Eyes: Right: Nystagmus (Significant nystagmus of both eyes when looking to the right) Throat/Mouth: Other (Normal hydration) Neck: Normal Inspection Respiratory/Chest: No Respiratory Distress (Atraumatic), Lungs Clear Cardiovascular: Regular Rate, Rhythm GI/Abdominal Exam: Soft, Non-Tender Extremities: No: Pedal Edema Neurological: Alert, Oriented Psychiatric: Anxious Skin Exam: Warm, Dry Course - Vital Signs Last Recorded V/S: Last Vital Signs Temp 97.4 F 05/09/17 02:31 Pulse 82 05/09/17 02:31 Resp 18 05/09/17 02:31 BP 120/61 05/09/17 02:31 Pulse Ox 93 L 05/09/17 02:31 - Orders/Labs/Meds Orders: Active Orders 24 hr Category Date Time Status Head wo Cont [CT] Stat Exams 05/08/17 15:49 Taken Medication Orders Acetaminophen (Tylenol) 650 mg PO Q4H PRN PRN Reason: Pain (Mild 1-3)/fever Apixaban (Eliquis) 5 mg PO BID [place] Lorazepam (Ativan) 0.5 - 1 mg IVPUSH Q4H PRN PRN Reason: Nausea/Vomiting Meclizine HCl (Antivert) 25 mg PO Q6H PRN PRN Reason: Dizziness Ondansetron HCl (Zofran Odt) 4 mg PO Q6H PRN PRN Reason: Nausea able to take PO Ondansetron HCl (Zofran) 4 mg IV Q6H PRN PRN Reason: Nausea/Vomiting Senna/Docusate Sodium (Senna Plus) 1 tab PO BID PRN PRN Reason: Constipation Labs: Laboratory Tests 05/08/17 05/08/17 Range/Units 16:00 16:00 WBC 5.0 (4.5-11.0) K/uL RBC 4.32 (3.30-5.50) M/uL Hgb 13.0 (12.0-15.0) g/dL Hct 40.7 (36.0-48.0) % MCV 94 (80-98) fL MCH 30 (27-31) pg MCHC 32 (32-36) % Plt Count 186 (150-400) K/uL Neut % (Auto) 70 H (36-66) % Lymph % (Auto) 17 L (24-44) % [place] % (Auto) 10 H (2-6) % Eos % (Auto) 2 (2-4) % Baso % (Auto) 1 (0-1) % Sodium 140 (140-148) mmol/L Potassium 3.6 (3.6-5.2) mmol/L Chloride 106 (100-108) mmol/L Carbon Dioxide 26 (21-32) mmol/L Anion Gap 7.8 (5.0-14.0) mmol/L BUN 14 (7-18) mg/dL Creatinine 0.8 (0.6-1.0) mg/dL Est Cr Clr Drug Dosing 41.88 mL/min Estimated GFR (MDRD) > 60 (>60) Glucose 183 H (74-106) mg/dL Calcium 8.4 L (8.5-10.1) mg/dL Total Bilirubin 0.4 (0.2-1.0) mg/dL AST 17 (15-37) U/L ALT 15 (12-78) U/L Alkaline Phosphatase 46 (46-116) U/L Total Protein 6.4 (6.4-8.2) g/dL Albumin 2.9 L (3.4-5.0) g/dL Globulin 3.5 (2.3-3.5) g/dL Albumin/Globulin Ratio 0.8 L (1.2-2.2) Meds: Medications Generic Name Dose Route Start Last Admin Trade Name Freq PRN Reason Stop Dose Admin Acetaminophen 650 mg 05/08/17 18:03 Tylenol PO Q4H PRN Pain (Mild 1-3)/fever Apixaban 5 mg 05/09/17 09:00 Eliquis PO BID CALDERON Lorazepam 0.5 - 1 mg 05/08/17 18:03 Ativan IVPUSH Q4H PRN Nausea/Vomiting Meclizine HCl 25 mg 05/08/17 18:03 Antivert PO Q6H PRN Dizziness Ondansetron HCl 4 mg 05/08/17 18:03 Zofran Odt PO Q6H PRN Nausea able to take PO Ondansetron HCl 4 mg 05/08/17 18:03 Zofran IV Q6H PRN Nausea/Vomiting Senna/Docusate Sodium 1 tab 05/08/17 18:03 Senna Plus PO BID PRN Constipation Discontinued Medications Generic Name Dose Route Start Last Admin Trade Name Freq PRN Reason Stop Dose Admin Sodium Chloride 1,000 mls @ 125 mls/hr 05/08/17 18:03 05/08/17 18:26 Normal Saline IV 05/09/17 02:04 125 mls/hr ASDIRECTED CALDERON Administration Lorazepam 0.5 mg 05/08/17 15:40 05/08/17 15:45 Ativan IVPUSH 05/08/17 15:41 0.5 mg ONETIME ONE Administration Ondansetron HCl 4 mg 05/08/17 15:40 05/08/17 15:51 Zofran IVPUSH 05/08/17 15:41 4 mg ONETIME ONE Administration - Re-Assessments/Exams Free Text/Narrative Re-Assessment/Exam: 05/08/17 15:48 An IV was started and the patient was given 4 mg of IV Zofran along with 0.5 mg of IV Ativan. CBC, CMP were obtained, along with a CT of the head without contrast. 05/08/17 16:23 Medication sedated the patient to the point she fell asleep, CT the head shows no hemorrhage, CBC is normal. 05/08/17 16:34 Patient was awoken by her daughter and is still feeling very nauseous and uncomfortable. CMP returned relatively normal, CBC normal as well. Patient is too symptomatic to consider going home, I asked Dr. Liu of the hospitalist service to visit with the patient and her daughter to discuss admission for symptom control. Departure - Departure Time of Disposition: 17:59 Disposition: Admitted As Inpatient 66 Condition: Poor Clinical Impression: Vertigo, Weakness Vomiting Qualifiers: Vomiting type: unspecified Nausea presence: with nausea - Discharge Information - My Orders Last 24 Hours: My Active Orders 05/08/17 15:49 Head wo Cont [CT] Stat - Assessment/Plan Last 24 Hours: My Active Orders 05/08/17 15:49 Head wo Cont [CT] Stat
[2017-05-08] MEDS ORDERED: LORazepam 2 MG/ML SDV IVPUSH ONE (15:40)
[2017-05-08] MEDS ORDERED: Ondansetron 4 MG/2 ML SDV IVPUSH ONE (15:40)
--- NOTE | 2017-05-08 17:18 | PCM.HP ---
H&P History of Present Illness - General Date of Service: 05/08/17 Admit Problem/Dx: Admission Diagnosis/Problem Admission Diagnosis/Problem Vertigo Source of Information: Patient, Family, Provider History Limitations: Reports: No Limitations - History of Present Illness Initial Comments - Free Text/Narative: Lucy presented to the emergency room with vertigo, nausea and vomiting. Symptoms started abruptly approximately 1-1/2 hours prior to coming to the emergency room. She had been feeling well during the day prior to onset of vertigo. While putting away groceries she suddenly experienced the sensation that the room was spinning around her and she developed nausea followed by vomiting. Symptoms persisted and she contacted her daughter and ultimately the ambulance was called to bring her to the emergency room. She has a mild achy headache located behind her eyes. The pain does not radiate. No obvious triggers to make it worse. Keeping her eyes open and bright lights do seem to make the vertigo symptoms worse. She has never had an episode like this before. No recent fevers, abdominal pain or diarrhea. She is getting over a recent pneumonia and does report a sore throat within the last couple of weeks. She does not currently have a sore throat though. Workup in the emergency room has been unremarkable but the patient has had persistent nausea despite ondansetron and lorazepam. Head CT did not suggest acute stroke. Examination does not suggest central neurologic lesion. She will be admitted for further management. - Related Data Allergies/Adverse Reactions: Allergies Allergy/AdvReac Type Severity Reaction Status Date / Time cefdinir Allergy Intermediate Rash Verified 05/08/17 15:09 Latex, Natural Rubber Allergy Rash Verified 05/08/17 15:09 Penicillins Allergy Anaphylactic Verified 05/08/17 15:09 Shock erythromycin base AdvReac Nausea and Verified 05/08/17 15:09 [Erythromycin Base] Vomiting Home Medications: Home Meds Calcium Carbonate/Vitamin D3 [Calcium 600-Vit D3 200 Tablet] 1 cap PO BID [History] [place]-3 Fatty Acids [[place]-3] 1,000 mg PO DAILY 02/22/14 [History] Cholecalciferol (Vitamin D3) [Vitamin D3] 1,000 unit PO DAILY 03/03/17 [History] Ondansetron [Ondansetron ODT] 4 mg PO ASDIRECTED PRN 03/03/17 [History] Apixaban [Eliquis] 1 tab PO BID 03/17/17 [History] Multivitamin [Gummi Bear Multivitamin] 2 tab PO DAILY 03/17/17 [History] Past Medical History HEENT History: Reports: Cataract, Sinusitis Cardiovascular History: Reports: Blood Clots/VTE/DVT, High Cholesterol Respiratory History: Reports: Bronchitis, Recurrent, Pneumonia, Recurrent Other Gastrointestinal History: CURRENT UTI DX Genitourinary History: Reports: UTI, Recurrent 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 Dermatologic History: Reports: Urticaria Other Dermatologic History: Herpes Zoster - Infectious Disease History Infectious Disease History: Reports: Chicken Pox, Measles, Mumps, Shingles - Past Surgical History HEENT Surgical History: Reports: Other (See Below) Other Oncologic Surgeries/Procedures: 4 Lumpectomies and partial mastectomy on left breast Social & Family History - Family History Family Medical History: Unobtainable - Tobacco Use Smoking Status *Q: Never Smoker Second Hand Smoke Exposure: No - Caffeine Use Caffeine Use: Reports: None - Alcohol Use Days Per Week of Alcohol Use: 0 - Recreational Drug Use Recreational Drug Use: No H&P Review of Systems - Review of Systems: Review Of Systems: See Below Free Text/Narrative: A complete 12 point review of systems was obtained. Pertinent positives and negatives are noted in the history of present illness. All other systems were reviewed and were negative except as noted. Exam - Exam Exam: See Below - Vital Signs Vital Signs: Last Vital Signs Temp 36.5 C 05/08/17 15:06 Pulse 84 05/08/17 16:30 Resp 18 05/08/17 15:06 BP 138/76 05/08/17 16:30 Pulse Ox 91 L 05/08/17 16:30 Weight: 60.328 kg - Exam Quality Assessment: No: Supplemental Oxygen General: Alert, Oriented, Cooperative, Mild Distress (nauseated) HEENT: Conjunctiva Clear, Pupils Equal, Pupils Reactive. No: Mucosa Moist & [place] (dry), Scleral Icterus Neck: Supple, Trachea Midline. No: Lymphadenopathy Lungs: Clear to Auscultation, Normal Respiratory Effort Cardiovascular: Regular Rate, Regular Rhythm. No: Systolic Murmur GI/Abdominal Exam: Normal Bowel Sounds, Soft, Non-Tender, No Distention Extremities: No Pedal Edema. No: Increased Warmth Peripheral Pulses: 2+: Dorsalis Pedis (L), Dorsalis Pedis (R) Skin: Warm, Dry, Intact Neurological: Strength Equal Bilateral Neuro Extensive - Mental Status: Alert, Oriented x3, Nl Response to Commands Neuro Extensive - Motor, Sensory, Reflexes: CN II-XII Intact, Other (horizontal nystagmus with fast phase to the left). No: Dysarthria, Abnormal Motor, Tremor Psychiatric: Alert, Normal Affect - Patient Data Lab Results Last 24 hrs: Laboratory Results - last 24 hr 05/08/17 05/08/17 Range/Units 16:00 16:00 WBC 5.0 (4.5-11.0) K/uL RBC 4.32 (3.30-5.50) M/uL Hgb 13.0 (12.0-15.0) g/dL Hct 40.7 (36.0-48.0) % MCV 94 (80-98) fL MCH 30 (27-31) pg MCHC 32 (32-36) % Plt Count 186 (150-400) K/uL Neut % (Auto) 70 H (36-66) % Lymph % (Auto) 17 L (24-44) % [place] % (Auto) 10 H (2-6) % Eos % (Auto) 2 (2-4) % Baso % (Auto) 1 (0-1) % Sodium 140 (140-148) mmol/L Potassium 3.6 (3.6-5.2) mmol/L Chloride 106 (100-108) mmol/L Carbon Dioxide 26 (21-32) mmol/L Anion Gap 7.8 (5.0-14.0) mmol/L BUN 14 (7-18) mg/dL Creatinine 0.8 (0.6-1.0) mg/dL Est Cr Clr Drug Dosing 41.88 mL/min Estimated GFR (MDRD) > 60 (>60) Glucose 183 H (74-106) mg/dL Calcium 8.4 L (8.5-10.1) mg/dL Total Bilirubin 0.4 (0.2-1.0) mg/dL AST 17 (15-37) U/L ALT 15 (12-78) U/L Alkaline Phosphatase 46 (46-116) U/L Total Protein 6.4 (6.4-8.2) g/dL Albumin 2.9 L (3.4-5.0) g/dL Globulin 3.5 (2.3-3.5) g/dL Albumin/Globulin Ratio 0.8 L (1.2-2.2) Result Diagrams: 05/08/17 16:00 05/08/17 16:00 Imaging Impressions Last 24 hrs: Head CT - images personally reviewed - no acute intracranial findings such as mass, hemorrhage or stroke. mild age related volume loss. *Q Meaningful Use (ADM) - VTE *Q VTE Criteria *Q: - VTE Risk Assess *Q Each Risk Factor Represents 1 Point: Abnormal Pulmonary Function (COPD) Total Score 1 Point Risk Factors: 1 Each Risk Factor Represents 2 Points: None Total Score 2 Point Risk Factors: 0 Each Risk Factor Represents 3 Points: Age 75 Years or Greater, History of DVT/PE Total Score 3 Point Risk Factors: 6 - Stroke *Q Stroke Criteria *Q: - AMI *Q AMI Criteria *Q: - Problem List (1) Vertigo SNOMED Code(s): 950477756 ICD Code: R42 - DIZZINESS AND GIDDINESS Status: Acute Current Visit: Yes (2) Vomiting SNOMED Code(s): 040779992 ICD Code: R11.10 - VOMITING, UNSPECIFIED Status: Acute Current Visit: Yes Qualifiers: Vomiting type: unspecified Nausea presence: with nausea Problem List Initiated/Reviewed/Updated: Yes Orders Last 24hrs: Active Orders 24 hr Category Date Time Status Patient Status Manage Transfer [TRANSFER] Routine ADT 05/08/17 17:07 Ordered Head wo Cont [CT] Stat Exams 05/08/17 15:49 Taken Resuscitation Status Routine Resus Stat 05/08/17 17:08 Ordered Assessment/Plan Comment:: ASSESSMENT AND PLAN - Vertigo with vomiting - fairly severe symptoms at this time. She has horizontal , left beating nystagmus with no other neurologic findings at this time so peripheral lesion is suspected. Resting comfortably at this time. -Symptom management with meclizine and other antinausea medications -Physical therapy and vestibular rehabilitation if available -Work on habituation exercises tomorrow if symptoms not better -Gentle fluids 1 L Pulmonary embolism - recent diagnosis, patient currently receiving systemic anticoagulation. -cont rivaroxaban Maintenance issues - - DVT prophylaxis - rivaroxaban - GI prophylaxis - not indicated - Nutrition - clear liquids, advance as tolerated - Garcia catheter - not indicated CODE STATUS - full code Admission justification - patient will be referred observation status for symptom management and additional monitoring. She is not safe for outpatient management at this time with persistent nausea and significant vertigo. Disposition - I would anticipate that she will be discharged home after the hospital stay. Primary care physician - Dr Levar Liu M.D.
[2017-05-08] MEDS ORDERED: Ondansetron 4 MG Tab.DIS PO PRN (18:03)
[2017-05-08] MEDS ORDERED: Ondansetron 4 MG/2 ML SDV IV PRN (18:03)
[2017-05-08] MEDS ORDERED: Meclizine 25 MG Tab PO PRN (18:03)
[2017-05-08] MEDS ORDERED: LORazepam 2 MG/ML SDV IVPUSH PRN (18:03)
[2017-05-08] MEDS ORDERED: Sodium Chloride 0.9% 1,000 ML IV SCH (18:03)
[2017-05-08] MEDS ORDERED: Acetaminophen 325 MG Tab PO PRN (18:03)
[2017-05-08] MEDS ORDERED: APIXABAN PO SCH (21:00)
[2017-05-09] MEDS ORDERED: Apixaban 5 MG Tab PO SCH (09:00)
--- NOTE | 2017-05-09 14:56 | PCM.PN ---
- General Info Date of Service: 05/09/17 Functional Status: Reports: Pain Controlled, Tolerating Diet - Review of Systems General: Denies: Fever Gastrointestinal: Reports: Nausea Neurological: Reports: Dizziness Systems Review Comment:: No acute events overnight. Vomiting has resolved and she has only mild nausea as of this morning. No recurrence of her vertigo. No headache today. Tolerated clear liquids this morning. She is able to ambulate some today but is weak and fatigued. - Patient Data Vitals - Most Recent: Last Vital Signs Temp 36.1 C 05/09/17 10:56 Pulse 70 05/09/17 10:56 Resp 18 05/09/17 10:56 BP 102/50 L 05/09/17 10:56 Pulse Ox 95 05/09/17 10:56 Weight - Most Recent: 60.328 kg I&O - Last 24 Hours: Intake & Output 05/08/17 05/09/17 05/09/17 22:59 06:59 14:59 Intake Total 1000 550 Output Total 500 450 Balance 500 100 Med Orders - Current: Current Medications Acetaminophen (Tylenol) 650 mg PO Q4H PRN PRN Reason: Pain (Mild 1-3)/fever Apixaban (Eliquis) 5 mg PO BID [place] Lorazepam (Ativan) 0.5 - 1 mg IVPUSH Q4H PRN PRN Reason: Nausea/Vomiting Meclizine HCl (Antivert) 25 mg PO Q6H PRN PRN Reason: Dizziness Last Admin: 05/09/17 09:37 Dose: 25 mg Ondansetron HCl (Zofran Odt) 4 mg PO Q6H PRN PRN Reason: Nausea able to take PO Ondansetron HCl (Zofran) 4 mg IV Q6H PRN PRN Reason: Nausea/Vomiting Last Admin: 05/09/17 09:38 Dose: 4 mg Senna/Docusate Sodium (Senna Plus) 1 tab PO BID PRN PRN Reason: Constipation Discontinued Medications Apixaban (Eliquis) 5 mg PO BID [facility] Last Admin: 05/09/17 10:33 Dose: 5 mg Sodium Chloride (Normal Saline) 1,000 mls @ 125 mls/hr IV ASDIRECTED CALDERON Stop: 05/09/17 02:04 Last Admin: 05/08/17 18:26 Dose: 125 mls/hr Lorazepam (Ativan) 0.5 mg IVPUSH ONETIME ONE Stop: 05/08/17 15:41 Last Admin: 05/08/17 15:45 Dose: 0.5 mg Ondansetron HCl (Zofran) 4 mg IVPUSH ONETIME ONE Stop: 05/08/17 15:41 Last Admin: 05/08/17 15:51 Dose: 4 mg - Exam Quality Assessment: No: Supplemental Oxygen General: Alert, Oriented, Cooperative, No Acute Distress HEENT: Other (Left tympanic membrane obscured by cerumen) Neck: Supple Lungs: Normal Respiratory Effort Cardiovascular: Regular Rate, Regular Rhythm GI/Abdominal Exam: Normal Bowel Sounds, No Distention Extremities: No Pedal Edema Skin: Warm, Dry Psy/Mental Status: Alert, Normal Affect - Problem List & Annotations (1) Vertigo SNOMED Code(s): 675320058 Code(s): R42 - DIZZINESS AND GIDDINESS Status: Acute Current Visit: Yes (2) Vomiting SNOMED Code(s): 459222331 Code(s): R11.10 - VOMITING, UNSPECIFIED Status: Acute Current Visit: Yes Qualifiers: Vomiting type: unspecified Nausea presence: with nausea - Problem List Review Problem List Initiated/Reviewed/Updated: Yes - My Orders Last 24 Hours: My Active Orders 05/08/17 17:08 Resuscitation Status Routine 05/08/17 18:03 Patient Status [ADT] Routine Bedrest Bedside Commode [RC] ASDIRECTED Notify Provider Vital Signs [RC] ASDIRECTED Oxygen Therapy [RC] PRN Up With Assistance [RC] ASDIRECTED VTE/DVT Education [RC] Per Unit Routine Vital Signs [RC] Q4H PT Evaluation and Treatment [CONS] Routine Acetaminophen [Tylenol] 650 mg PO Q4H PRN Docusate Sodium/Sennosides [Senna Plus] 1 tab PO BID PRN LORazepam [Ativan] 0.5 - 1 mg IVPUSH Q4H PRN Meclizine [Antivert] 25 mg PO Q6H PRN Ondansetron [Zofran ODT] 4 mg PO Q6H PRN Ondansetron [Zofran] 4 mg IV Q6H PRN 05/09/17 21:00 Apixaban [Eliquis] 5 mg PO BID 05/09/17 Lunch Regular Diet [DIET] - Plan Plan:: ASSESSMENT AND PLAN - Vertigo with vomiting - fairly severe symptoms yesterday but doing much better today. Only mild nausea and no recurrence of the vertigo. With weakness and mild persistent nausea I think she would benefit from one additional night of monitoring. -Symptom management with meclizine and other antinausea medications -Physical therapy and vestibular rehabilitation if needed as an outpatient -Work on habituation exercises if symptoms not better Pulmonary embolism - recent diagnosis, patient currently receiving systemic anticoagulation. -cont rivaroxaban Maintenance issues - - DVT prophylaxis - rivaroxaban - GI prophylaxis - not indicated - Nutrition - clear liquids, advance as tolerated Disposition - I would anticipate that she will be discharged home after the hospital stay, likely tomorrow if stable overnight Dagoberto Liu M.D.
[2017-05-09] MEDS: Apixaban 5 MG Tab (PTOM) PO SCH (20:28)
[2017-05-10 07:39] VITALS: BP 134/72
[2017-05-10] MEDS: Apixaban 5 MG Tab (PTOM) PO SCH (08:13)
--- NOTE | 2017-05-10 11:30 | PCM.DCSUM1 ---
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 and recent bilateral pneumonia who presented with acute dizziness, nausea and vomiting and was admitted for management of vertigo - Discharge Data Discharge Date: 05/10/17 Discharge Disposition: Home, Self-Care 01 Condition: Good - Discharge Diagnosis/Problem(s) (1) Vertigo SNOMED Code(s): 581826994 ICD Code: R42 - DIZZINESS AND GIDDINESS Status: Acute (2) Vomiting SNOMED Code(s): 876852371 ICD Code: R11.10 - VOMITING, UNSPECIFIED Status: Acute Qualifiers: Vomiting type: unspecified Nausea presence: with nausea - Patient Summary/Data Consults: Consultations 05/08/17 18:03 PT Evaluation and Treatment [CONS] Routine Please Evaluate and Treat. PT Reason for Consult: Vestibular This query below is only for informational purposes and is not editable. Hospital Course: Lucy presented to the emergency room with acute onset of vertigo, nausea and vomiting. Workup in the emergency room included a head CT as well as laboratory testing. No significant abnormalities were found with any of this testing. Given the severity of her nausea and vomiting she was admitted to the hospital for further symptom management. Overnight following admission she did have some ongoing nausea but did not have any more of the vertigo. The morning after admission she has only mild nausea and no vertigo. She did work with physical therapy but unfortunately we did not have vestibular rehabilitation available. By the afternoon following admission her nausea has improved but not quite resolved so we elected to keep her one additional night for more symptom management. The second night in the hospital was uneventful. She did not have any nausea or vomiting. She did not have recurrence of her vertigo. On the morning of discharge she feels well. She has been up and walking around without any symptoms. I suspect she may have had a dislodged otolith given the acute onset and severity of symptoms with rapid resolution. She is safe for hospital discharge. She will follow-up as needed. - Patient Instructions Diet: Regular Diet as Tolerated Activity: As Tolerated Showering/Bathing: May Shower Notify Provider of: Fever, Increased Pain, Nausea and/or Vomiting Other/Special Instructions: 1. You were in the hospital for management of vertigo. The exact cause for your symptoms is not entirely clear but they have resolved with symptomatic management. No specific treatment or follow-up is necessary unless you have recurrence of the symptoms. 2. Please continue your usual home medications as previously prescribed. 3. Seek medical attention if he develops fever greater than 101 or if you have recurrence of your symptoms that brought you to the hospital. - Discharge Plan Home Medications: Home Meds Calcium Carbonate/Vitamin D3 [Calcium 600-Vit D3 200 Tablet] 1 cap PO BID [History] [place]-3 Fatty Acids [[place]-3] 1,000 mg PO DAILY 02/22/14 [History] Cholecalciferol (Vitamin D3) [Vitamin D3] 1,000 unit PO DAILY 03/03/17 [History] Ondansetron [Ondansetron ODT] 4 mg PO ASDIRECTED PRN 03/03/17 [History] Apixaban [Eliquis] 5 mg PO BID 03/17/17 [History] Multivitamin [Gummi Bear Multivitamin] 2 tab PO DAILY 03/17/17 [History] Patient Handouts: Vertigo, Dizziness Referrals: PCP,None [Primary Care Provider] - (follow up with your primary care as needed after the hospital stay) - Patient Data Vitals - Most Recent: Last Vital Signs Temp 37.0 C 05/10/17 07:38 Pulse 70 05/10/17 07:38 Resp 20 05/10/17 07:38 BP 134/72 05/10/17 07:38 Pulse Ox 92 L 05/10/17 07:38 Weight - Most Recent: 60.328 kg I&O - Last 24 hours: Intake & Output 05/09/17 05/10/17 05/10/17 22:59 06:59 14:59 Intake Total 240 Balance 240 Med Orders - Current: Current Medications Discontinued Medications Acetaminophen (Tylenol) 650 mg PO Q4H PRN PRN Reason: Pain (Mild 1-3)/fever Apixaban (Eliquis) 5 mg PO BID [facility] Last Admin: 05/09/17 10:33 Dose: 5 mg Apixaban (Eliquis) 5 mg PO BID [facility] Last Admin: 05/10/17 08:13 Dose: 5 mg Sodium Chloride (Normal Saline) 1,000 mls @ 125 mls/hr IV ASDIRECTED [place] Stop: 05/09/17 02:04 Last Admin: 05/08/17 18:26 Dose: 125 mls/hr Lorazepam (Ativan) 0.5 mg IVPUSH ONETIME ONE Stop: 05/08/17 15:41 Last Admin: 05/08/17 15:45 Dose: 0.5 mg Lorazepam (Ativan) 0.5 - 1 mg IVPUSH Q4H PRN PRN Reason: Nausea/Vomiting Meclizine HCl (Antivert) 25 mg PO Q6H PRN PRN Reason: Dizziness Last Admin: 05/09/17 09:37 Dose: 25 mg Ondansetron HCl (Zofran) 4 mg IVPUSH ONETIME ONE Stop: 05/08/17 15:41 Last Admin: 05/08/17 15:51 Dose: 4 mg Ondansetron HCl (Zofran Odt) 4 mg PO Q6H PRN PRN Reason: Nausea able to take PO Ondansetron HCl (Zofran) 4 mg IV Q6H PRN PRN Reason: Nausea/Vomiting Last Admin: 05/09/17 09:38 Dose: 4 mg Senna/Docusate Sodium (Senna Plus) 1 tab PO BID PRN PRN Reason: Constipation - Exam Quality Assessment: Denies: Supplemental Oxygen General: Reports: Alert, Oriented, Cooperative, No Acute Distress Neck: Reports: Supple Lungs: Reports: Normal Respiratory Effort Cardiovascular: Reports: Regular Rate, Regular Rhythm Extremities: No Pedal Edema Neurological: Reports: No New Focal Deficit Psy/Mental Status: Reports: Alert, Normal Affect *Q Meaningful Use (DIS) - VTE *Q VTE Criteria *Q: - Stroke *Q Stroke Criteria *Q: - AMI *Q AMI Criteria *Q:
== END 2017-05-10 10:30 | disposition home or self-care (01) ==
LOC: JP.ED 15:01 → JP.MS 17:07
PROVIDERS: ADMIT Internal Medicine; ATTEND Internal Medicine
DX: R42 Dizziness and giddiness (principal); R11.10 Vomiting, unspecified; E78.00 Pure hypercholesterolemia, unspecified; Z79.899 Other long term (current) drug therapy; Z88.0 Allergy status to penicillin; Z88.1 Allergy status to other antibiotic agents; Z88.8 Allergy status to other drugs, medicaments and biological substances; Z91.040 Latex allergy status
CPT/HCPCS: 36415; 70450; 80053; 85025; 96374; 96375; 99217; 99219; 99285; A9270; J2060; J2405; J7040

== ENCOUNTER 2017-05-17 07:40 | Emergency (ER) | payer MEDICARE, MEDICAID ==
[2017-05-17] MEDS ORDERED: Lactated Ringers 1,000 ML IV ONE (08:05)
[2017-05-17] MEDS ORDERED: LORazepam 2 MG/ML SDV IVPUSH ONE (08:05)
--- NOTE | 2017-05-17 08:11 | EDM.PDOC ---
ED HPI GENERAL MEDICAL PROBLEM - General Chief Complaint: Gastrointestinal Problem Stated Complaint: MEDICAL VIA [place] Time Seen by Provider: 05/17/17 07:56 Source of Information: Reports: Patient, Family, Old Records, RN Notes Reviewed History Limitations: Reports: No Limitations - History of Present Illness INITIAL COMMENTS - FREE TEXT/NARRATIVE: 87-year-old female presents to the emergency department today complaint of nausea and vomiting, she was admitted to the hospital one week ago same complaint workup at that time included blood work and CAT scan which were unremarkable admission the hospital for 2 days for symptomatic management thought to be an otolith she has not tried any physical therapy for this she did have symptomatic relief after a couple of days with treatment. For this particular event she was doing fine awoke this morning was fine and then rolled over in bed sudden onset of nausea and vomiting - Related Data Allergies Allergy/AdvReac Type Severity Reaction Status Date / Time Penicillins Allergy Severe Anaphylactic Verified 05/09/17 07:08 Shock cefdinir Allergy Intermediate Rash Verified 05/08/17 18:14 Latex, Natural Rubber Allergy Rash Verified 05/08/17 18:14 erythromycin base AdvReac Nausea and Verified 05/08/17 18:14 [Erythromycin Base] Vomiting Home Meds: Home Meds Calcium Carbonate/Vitamin D3 [Calcium 600-Vit D3 200 Tablet] 1 cap PO BID [History] [place]-3 Fatty Acids [[place]-3] 1,000 mg PO DAILY 02/22/14 [History] Cholecalciferol (Vitamin D3) [Vitamin D3] 1,000 unit PO DAILY 03/03/17 [History] Ondansetron [Ondansetron ODT] 4 mg PO ASDIRECTED PRN 03/03/17 [History] Apixaban [Eliquis] 5 mg PO BID 03/17/17 [History] Multivitamin [Gummi Bear Multivitamin] 2 tab PO DAILY 03/17/17 [History] Past Medical History HEENT History: Reports: Cataract, Sinusitis Cardiovascular History: Reports: Blood Clots/VTE/DVT, High Cholesterol Respiratory History: Reports: Bronchitis, Recurrent, Pneumonia, Recurrent Other Gastrointestinal History: CURRENT UTI DX Genitourinary History: Reports: UTI, Recurrent 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 Dermatologic History: Reports: Urticaria Other Dermatologic History: Herpes Zoster - Infectious Disease History Infectious Disease History: Reports: Chicken Pox, Measles, Mumps, Shingles - Past Surgical History HEENT Surgical History: Reports: Other (See Below) Other Oncologic Surgeries/Procedures: 4 Lumpectomies and partial mastectomy on left breast Social & Family History - Family History Family Medical History: Unobtainable - Tobacco Use Smoking Status *Q: Never Smoker Second Hand Smoke Exposure: No - Caffeine Use Caffeine Use: Reports: Coffee - Alcohol Use Days Per Week of Alcohol Use: 0 - Recreational Drug Use Recreational Drug Use: No ED ROS GENERAL - Review of Systems Review Of Systems: See Below Constitutional: Reports: No Symptoms HEENT: Reports: Vertigo Respiratory: Reports: No Symptoms Cardiovascular: Reports: No Symptoms GI/Abdominal: Reports: Nausea, Vomiting : Reports: No Symptoms Musculoskeletal: Reports: No Symptoms Skin: Reports: No Symptoms Neurological: Reports: No Symptoms ED EXAM, DIZZINESS - Physical Exam Exam: See Below Text/Narrative:: General: Female moderate discomfort secondary to nausea and vomiting, alert HEENT: head is atraumatic normocephalic, eyes pupils equal round reactive to light, sclera clear no conjunctivitis appreciated, extraocular eye movements intact. Ears tympanic membranes clear and sanchez landmarks and light reflex are present bilaterally canals are clear. Nose no septal deviation, nares are clear , no blood present. Mouth mucosa is moist and pink no erythema or exudate noted in soft palate, tongue is midline uvula is midline, dentures in place. Neck: Supple no thyromegaly no tracheal deviation. Nodes: Cervical nodes subclavicular nodes nontender no palpable lymphadenopathy noted. Lungs: clear to auscultation bilaterally with symmetrical respirations, no adventitious noise appreciated. CV: Regular rate and rhythm S1 and S2 appreciated no murmurs rubs or gallops noted. Abdomen: Soft, nontender, no palpable masses or organomegaly appreciated, no distention no guarding bowel sounds are present, . Neuro: Cranial nerves II through XII grossly intact Skin: Warm and dry, intact Extremities: No lower extremity edema appreciated, pedal pulse is +2. Course - Vital Signs Last Recorded V/S: Last Vital Signs Temp 97.9 F 05/17/17 07:47 Pulse 78 05/17/17 09:16 Resp 13 05/17/17 09:16 BP 141/63 H 05/17/17 09:16 Pulse Ox 92 L 05/17/17 09:16 - Orders/Labs/Meds Labs: Laboratory Tests 05/17/17 05/17/17 Range/Units 08:05 08:05 WBC 4.6 (4.5-11.0) K/uL RBC 4.36 (3.30-5.50) M/uL Hgb 13.2 (12.0-15.0) g/dL Hct 40.8 (36.0-48.0) % MCV 94 (80-98) fL MCH 30 (27-31) pg MCHC 32 (32-36) % Plt Count 186 (150-400) K/uL Neut % (Auto) 47 (36-66) % Lymph % (Auto) 34 (24-44) % [place] % (Auto) 11 H (2-6) % Eos % (Auto) 6 H (2-4) % Baso % (Auto) 2 H (0-1) % Sodium 142 (140-148) mmol/L Potassium 3.7 (3.6-5.2) mmol/L Chloride 109 H (100-108) mmol/L Carbon Dioxide 28 (21-32) mmol/L Anion Gap 8.7 (5.0-14.0) mmol/L BUN 15 (7-18) mg/dL Creatinine 0.7 (0.6-1.0) mg/dL Est Cr Clr Drug Dosing 48.89 mL/min Estimated GFR (MDRD) > 60 (>60) Glucose 121 H (74-106) mg/dL Calcium 8.5 (8.5-10.1) mg/dL Meds: Medications Discontinued Medications Generic Name Dose Route Start Last Admin Trade Name Freq PRN Reason Stop Dose Admin Lactated Ringer's 1,000 mls @ 500 mls/hr 05/17/17 08:05 05/17/17 08:11 Ringers, Lactated IV 05/17/17 10:04 500 mls/hr BOLUS ONE Administration Lorazepam 1 mg 05/17/17 08:05 05/17/17 08:12 Ativan IVPUSH 05/17/17 08:06 1 mg ONETIME ONE Administration Departure - Departure Time of Disposition: 14:05 Disposition: Home, Self-Care 01 Condition: Good Clinical Impression: Vertigo - Discharge Information Referrals: PCP,None [Primary Care Provider] - Forms: ED Department Discharge Additional Instructions: Use Ativan as needed for nausea vomiting and dizzy symptoms, physical therapy will call you for an appointment for further evaluation - Assessment/Plan Plan: Assessment Acuity = acute Site and laterality = nausea vomiting and dizziness Etiology = probable otolith Manifestations = none Location of injury = Home Lab values = CBC and BMP unremarkable Plan We did observe her for several hours she was given Zofran in the ambulance and 1 mg Ativan slept for a period time was able to tolerate a meal take her home medications plan is to discharge home with Ativan to be used as needed consult is also set up for physical therapy for evaluation and treatment This note was dictated using [employer] voice recognition software please call with any questions on syntax or emilio.
[2017-05-17 09:17] VITALS: BP 141/63
== END 2017-05-17 14:41 | disposition home or self-care (01) ==
LOC: JP.ED 07:40
DX: R42 Dizziness and giddiness (principal); R11.2 Nausea with vomiting, unspecified; E78.00 Pure hypercholesterolemia, unspecified; Z88.0 Allergy status to penicillin; Z91.040 Latex allergy status; Z87.01 Personal history of pneumonia (recurrent); Z87.440 Personal history of urinary (tract) infections; Z79.899 Other long term (current) drug therapy; Z88.1 Allergy status to other antibiotic agents
CPT/HCPCS: 36415; 80048; 85025; 96361; 96374; 99283; 99284; J2060; J7120

== ENCOUNTER 2017-05-30 18:10 | Emergency (ER) | payer MEDICARE, MEDICAID ==
[2017-05-30] MEDS ORDERED: Sodium Chloride 0.9% 1,000 ML IV SCH (18:45)
--- NOTE | 2017-05-30 18:47 | EDM.PDOC ---
ED HPI GENERAL MEDICAL PROBLEM - General Chief Complaint: Gastrointestinal Problem Stated Complaint: VOMITING,DIARRHEA Time Seen by Provider: 05/30/17 18:10 Source of Information: Reports: Patient, Family History Limitations: Reports: No Limitations - History of Present Illness INITIAL COMMENTS - FREE TEXT/NARRATIVE: 87-year-old female who has been ill for 3 days with persistent watery diarrhea, nausea, a few episodes of emesis and very weak. There was some gastroenteritis- like syndrome in the family over the last couple of weeks and she thought she just "had the flu". She feels it is getting worse instead of better. She is taking fluids but has no appetite and according to her daughter hasn't eaten anything in 3 days. No fevers or chills, denies any pain but is also had 2 episodes of vertigo but not currently. She has not seen any blood in the diarrhea or the emesis. She has not traveled, but the patient says she has been on an antibiotic for "pneumonia" sometime in the recent past. She has been taking some antidiarrheal medication which helps a little. Duration: Day(s): (Symptoms have been ongoing for at least 3 days) Severity: Moderate Associated Symptoms: Reports: Loss of Appetite, Malaise, Nausea/Vomiting, Weakness. 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) (Has been taking some antidiarrheals , and Tums) - Related Data Allergies Allergy/AdvReac Type Severity Reaction Status Date / Time Penicillins Allergy Severe Anaphylactic Verified 05/30/17 18:25 Shock cefdinir Allergy Intermediate Rash Verified 05/30/17 18:25 Latex, Natural Rubber Allergy Rash Verified 05/30/17 18:25 erythromycin base AdvReac Nausea and Verified 05/30/17 18:25 [Erythromycin Base] Vomiting Home Meds: Home Meds Calcium Carbonate/Vitamin D3 [Calcium 600-Vit D3 200 Tablet] 1 cap PO BID [History] [place]-3 Fatty Acids [[place]-3] 1,000 mg PO DAILY 02/22/14 [History] Cholecalciferol (Vitamin D3) [Vitamin D3] 1,000 unit PO DAILY 03/03/17 [History] Ondansetron [Ondansetron ODT] 4 mg PO ASDIRECTED PRN 03/03/17 [History] Apixaban [Eliquis] 5 mg PO BID 03/17/17 [History] Multivitamin [Gummi Bear Multivitamin] 2 tab PO DAILY 03/17/17 [History] Past Medical History HEENT History: Reports: Cataract, Sinusitis Cardiovascular History: Reports: Blood Clots/VTE/DVT, High Cholesterol Respiratory History: Reports: Bronchitis, Recurrent, Pneumonia, Recurrent Other Gastrointestinal History: CURRENT UTI DX Genitourinary History: Reports: UTI, Recurrent 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 Dermatologic History: Reports: Urticaria Other Dermatologic History: Herpes Zoster - Infectious Disease History Infectious Disease History: Reports: Chicken Pox, Measles, Mumps, Shingles - Past Surgical History HEENT Surgical History: Reports: Other (See Below) Oncologic Surgical History: Reports: Other (See Below) Other Oncologic Surgeries/Procedures: 4 Lumpectomies and partial mastectomy on left breast Social & Family History - Family History Family Medical History: Unobtainable - Tobacco Use Smoking Status *Q: Never Smoker Second Hand Smoke Exposure: No - Caffeine Use Caffeine Use: Reports: Coffee - Alcohol Use Days Per Week of Alcohol Use: 0 - Recreational Drug Use Recreational Drug Use: No ED ROS GENERAL - Review of Systems Review Of Systems: See Below Constitutional: Reports: Malaise, Weakness, Decreased Appetite. Denies: Fever, Chills HEENT: Reports: No Symptoms Respiratory: Denies: Shortness of Breath, Cough Cardiovascular: Denies: Chest Pain Endocrine: Reports: Fatigue GI/Abdominal: Reports: Diarrhea, Nausea, Vomiting. Denies: Abdominal Pain : Reports: No Symptoms Neurological: Reports: Dizziness (Recurring vertigo). Denies: Headache Psychiatric: Reports: No Symptoms ED EXAM, GI/ABD - Physical Exam Exam: See Below Exam Limited By: No Limitations General Appearance: Alert, No Apparent Distress (Patient appears very tired but is not distressed) Eyes: Bilateral: Normal Appearance (Normal hydration) Throat/Mouth: Normal Inspection Head: Atraumatic Respiratory/Chest: No Respiratory Distress, Lungs Clear Cardiovascular: Regular Rate, Rhythm, No Murmur. No: Extra Beats GI/Abdominal Exam: Soft, Non-Tender Extremities: Other (Just a trace of symmetric lower extremity edema is present) Neurological: Alert, Oriented Psychiatric: Depressed Mood, Flat Affect Skin Exam: Warm, Dry Course - Vital Signs Last Recorded V/S: Last Vital Signs Temp 95.5 F 05/30/17 18:23 Pulse 67 05/30/17 19:59 Resp 16 05/30/17 19:59 BP 125/64 05/30/17 19:59 Pulse Ox 95 05/30/17 19:59 Orthostatic Blood Pressure [ 110/71 Standing] Orthostatic Blood Pressure [ 120/73 Sitting] Orthostatic Blood Pressure [ 118/57 Supine] - Orders/Labs/Meds Orders: Active Orders 24 hr Category Date Time Status CULTURE URINE [RM] Stat Lab 05/30/17 19:25 Received UA W/MICROSCOPIC [URIN] Urgent Lab 05/30/17 18:50 Ordered Labs: Laboratory Tests 05/30/17 05/30/17 05/30/17 Range/Units 18:50 18:57 18:57 WBC 3.9 L (4.5-11.0) K/uL RBC 4.77 (3.30-5.50) M/uL Hgb 14.4 (12.0-15.0) g/dL Hct 44.3 (36.0-48.0) % MCV 93 (80-98) fL MCH 30 (27-31) pg MCHC 33 (32-36) % Plt Count 174 (150-400) K/uL Neut % (Auto) 42 (36-66) % Lymph % (Auto) 36 (24-44) % [place] % (Auto) 17 H (2-6) % Eos % (Auto) 4 (2-4) % Baso % (Auto) 1 (0-1) % Sodium 141 (140-148) mmol/L Potassium 3.7 (3.6-5.2) mmol/L Chloride 104 (100-108) mmol/L Carbon Dioxide 27 (21-32) mmol/L Anion Gap 10.5 (5.0-14.0) mmol/L BUN 13 (7-18) mg/dL Creatinine 0.9 (0.6-1.0) mg/dL Est Cr Clr Drug Dosing 37.23 mL/min Estimated GFR (MDRD) 59 L (>60) Glucose 95 (74-106) mg/dL Calcium 9.1 (8.5-10.1) mg/dL Total Bilirubin 0.5 (0.2-1.0) mg/dL AST 26 (15-37) U/L ALT 18 (12-78) U/L Alkaline Phosphatase 48 (46-116) U/L Total Protein 6.8 (6.4-8.2) g/dL Albumin 3.1 L (3.4-5.0) g/dL Globulin 3.7 H (2.3-3.5) g/dL Albumin/Globulin Ratio 0.8 L (1.2-2.2) Urine Color Yellow Urine Appearance Cloudy Urine pH 5.0 (4.5-8.0) Ur Specific [place] 1.025 (1.008-1.030) Urine Protein Negative (NEGATIVE) mg/dL Urine Glucose (UA) Normal (NEGATIVE) mg/dL Urine Ketones Negative (NEGATIVE) mg/dL Urine Occult Blood Moderate (NEGATIVE) Urine Nitrite Negative (NEGATIVE) Urine Bilirubin Negative (NEGATIVE) Urine Urobilinogen Normal (NORMAL) mg/dL Ur Leukocyte Esterase Large (NEGATIVE) Urine RBC 0-5 (0-5) Urine WBC 20-30 H (0-5) Ur Epithelial Cells Few Amorphous Sediment Rare Urine Bacteria Many Urine Mucus Not seen Meds: Medications Discontinued Medications Generic Name Dose Route Start Last Admin Trade Name Pabloq PRN Reason Stop Dose Admin Sodium Chloride 1,000 mls @ 500 mls/hr 05/30/17 18:45 05/30/17 18:56 Normal Saline IV 500 mls/hr ASDIRECTED [facility] Administration - Re-Assessments/Exams Free Text/Narrative Re-Assessment/Exam: 05/30/17 18:46 An IV was started and the patient will be hydrated with 500 mL of normal saline an hour. A stool be collected for WBCs and C. difficile, CBC and CMP will also be obtained. 05/30/17 21:20 Patient was reassured that her labs look excellent. After 3-1/2 hours in the emergency room she still did not have any diarrheal stool but tolerated a small supper and her orthostatic blood pressures were stable. We decided to send her home, but she will take a stool sample collection kit and bring it back for C. difficile testing. It's unlikely to be positive with the symptoms she's having. She will return if worsening. Departure - Departure Time of Disposition: 21:51 Disposition: Home, Self-Care 01 Condition: Good Clinical Impression: Gastroenteritis - Discharge Information Instructions: Viral Gastroenteritis, Adult, [id number] Referrals: PCP,None [Primary Care Provider] - Forms: ED Department Discharge Care Plan Goals: Get lots of fluids, advance diet as tolerated and increase activity as tolerated as well. Obtain a stool sample if diarrhea persists. Return anytime if worsening or concerns. - My Orders Last 24 Hours: My Active Orders 05/30/17 18:50 UA W/MICROSCOPIC [URIN] Urgent 05/30/17 19:25 CULTURE URINE [RM] Stat - Assessment/Plan Last 24 Hours: My Active Orders 05/30/17 18:50 UA W/MICROSCOPIC [URIN] Urgent 05/30/17 19:25 CULTURE URINE [RM] Stat
[2017-05-30 20:00] VITALS: BP 125/64
== END 2017-05-30 21:51 | disposition home or self-care (01) ==
LOC: JP.ED 18:10
DX: K52.9 Noninfective gastroenteritis and colitis, unspecified (principal); E78.00 Pure hypercholesterolemia, unspecified; Z87.01 Personal history of pneumonia (recurrent); Z88.0 Allergy status to penicillin; Z91.040 Latex allergy status; Z79.899 Other long term (current) drug therapy; Z87.440 Personal history of urinary (tract) infections; Z88.8 Allergy status to other drugs, medicaments and biological substances; Z88.1 Allergy status to other antibiotic agents
CPT/HCPCS: 36415; 80053; 81001; 85025; 87086; 96360; 96361; 99284; J7040

== ENCOUNTER 2017-06-27 04:12 | Emergency (ER) | payer MEDICARE, MEDICAID ==
[2017-06-27] MEDS ORDERED: LORazepam 2 MG/ML SDV IVPUSH ONE (04:55)
[2017-06-27] MEDS ORDERED: Sodium Chloride 0.9% 1,000 ML IV SCH (05:00)
--- NOTE | 2017-06-27 05:01 | EDM.PDOC ---
<Segundo Fish - Last Filed: 06/27/17 07:05> ED HPI GENERAL MEDICAL PROBLEM - General Chief Complaint: Neuro Symptoms/Deficits Stated Complaint: MEDICAL VIA [facility] Time Seen by Provider: 06/27/17 04:45 Source of Information: Reports: Patient, EMS History Limitations: Reports: No Limitations - History of Present Illness INITIAL COMMENTS - FREE TEXT/NARRATIVE: 87-year-old female with a history of severe intermittent positional vertigo woke up last evening to go to the bathroom and was struck by another episode of severe vertigo and nausea. She's had several emesis. This episode is very similar to previous episodes except the vertigo is not as bad but the nausea is worse. She's been going to physical therapy and thought she was "down with this ". She received Zofran in route. She was hospitalized for the same symptoms 2 months ago, a complete workup was done including a CT scan of her head. Several days later she returned, received IV fluids and IV Ativan and after she slept she woke up and felt much better. She wants to try that again instead of being hospitalized. She is holding her head very still, the symptoms worsen when she opens her eyes and become markedly worse when she moves. Onset: Sudden Duration: Hour(s): (Symptoms have been present for several hours) Severity: Moderate Associated Symptoms: Reports: Malaise, Nausea/Vomiting, Weakness. 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/IO - Related Data Allergies Allergy/AdvReac Type Severity Reaction Status Date / Time Penicillins Allergy Severe Anaphylactic Verified 06/27/17 04:21 Shock cefdinir Allergy Intermediate Rash Verified 06/27/17 04:21 Latex, Natural Rubber Allergy Rash Verified 06/27/17 04:21 erythromycin base AdvReac Nausea and Verified 06/27/17 04:21 [Erythromycin Base] Vomiting Home Meds: Home Meds Calcium Carbonate/Vitamin D3 [Calcium 600-Vit D3 200 Tablet] 1 cap PO BID [History] [place]-3 Fatty Acids [[place]-3] 1,000 mg PO DAILY 02/22/14 [History] Cholecalciferol (Vitamin D3) [Vitamin D3] 1,000 unit PO DAILY 03/03/17 [History] Ondansetron [Ondansetron ODT] 4 mg PO ASDIRECTED PRN 03/03/17 [History] Apixaban [Eliquis] 5 mg PO BID 03/17/17 [History] Multivitamin [Gummi Bear Multivitamin] 2 tab PO DAILY 03/17/17 [History] Past Medical History HEENT History: Reports: Cataract, Sinusitis Cardiovascular History: Reports: Blood Clots/VTE/DVT, High Cholesterol Respiratory History: Reports: Bronchitis, Recurrent, Pneumonia, Recurrent Other Gastrointestinal History: CURRENT UTI DX Genitourinary History: Reports: UTI, Recurrent 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 Dermatologic History: Reports: Urticaria Other Dermatologic History: Herpes Zoster - Infectious Disease History Infectious Disease History: Reports: Chicken Pox, Measles, Mumps, Shingles - Past Surgical History HEENT Surgical History: Reports: Other (See Below) Oncologic Surgical History: Reports: Other (See Below) Social & Family History - Family History Family Medical History: Unobtainable - Tobacco Use Smoking Status *Q: Never Smoker Second Hand Smoke Exposure: No - Caffeine Use Caffeine Use: Reports: Coffee - Alcohol Use Days Per Week of Alcohol Use: 0 - Recreational Drug Use Recreational Drug Use: No ED ROS GENERAL - Review of Systems Review Of Systems: See Below Constitutional: Reports: Malaise, Weakness. Denies: Fever, Chills HEENT: Reports: Vertigo Respiratory: Denies: Shortness of Breath Cardiovascular: Denies: Chest Pain GI/Abdominal: Reports: Nausea, Vomiting. Denies: Abdominal Pain Skin: Reports: No Symptoms Neurological: Denies: Headache ED EXAM, GENERAL - Physical Exam Exam: See Below Exam Limited By: No Limitations General Appearance: Alert, Moderate Distress Eye Exam: Bilateral Eye: Other (She looks [id number] very slowly but I do not appreciate nystagmus at this time) Head: Atraumatic Neck: Supple, Non-Tender. No: Lymphadenopathy (R), Lymphadenopathy (L) Respiratory/Chest: No Respiratory Distress Cardiovascular: Regular Rate, Rhythm GI/Abdominal: Non-Tender Extremities: Normal Inspection. No: Pedal Edema Neurological: Alert, Oriented Psychiatric: Depressed Mood, Flat Affect Skin Exam: Warm, Dry Course - Vital Signs Last Recorded V/S: Last Vital Signs Temp 35.2 C L 06/27/17 10:15 Pulse 88 06/27/17 10:15 Resp 16 06/27/17 10:15 BP 123/69 06/27/17 10:15 Pulse Ox 93 L 06/27/17 10:15 - Orders/Labs/Meds Orders: Active Orders 24 hr Category Date Time Status Sodium Chloride 0.9% [Normal Saline] 1,000 ml Med 06/27/17 05:00 Active IV ASDIRECTED Medication Orders Sodium Chloride (Normal Saline) 1,000 mls @ 500 mls/hr IV ASDIRECTED CALDERON Last Admin: 06/27/17 05:14 Dose: 500 mls/hr Labs: Laboratory Tests 06/27/17 06/27/17 Range/Units 05:01 05:01 WBC 4.0 L (4.5-11.0) K/uL RBC 4.38 (3.30-5.50) M/uL Hgb 13.3 (12.0-15.0) g/dL Hct 40.7 (36.0-48.0) % MCV 93 (80-98) fL MCH 30 (27-31) pg MCHC 33 (32-36) % Plt Count 163 (150-400) K/uL Neut % (Auto) 46 (36-66) % Lymph % (Auto) 37 (24-44) % [place] % (Auto) 11 H (2-6) % Eos % (Auto) 5 H (2-4) % Baso % (Auto) 1 (0-1) % Sodium 141 (140-148) mmol/L Potassium 3.5 L (3.6-5.2) mmol/L Chloride 106 (100-108) mmol/L Carbon Dioxide 29 (21-32) mmol/L Anion Gap 9.5 (5.0-14.0) mmol/L BUN 14 (7-18) mg/dL Creatinine 0.8 (0.6-1.0) mg/dL Est Cr Clr Drug Dosing 42.78 mL/min Estimated GFR (MDRD) > 60 (>60) Glucose 99 (74-106) mg/dL Calcium 8.5 (8.5-10.1) mg/dL Meds: Medications Generic Name Dose Route Start Last Admin Trade Name Freq PRN Reason Stop Dose Admin Sodium Chloride 1,000 mls @ 500 mls/hr 06/27/17 05:00 06/27/17 05:14 Normal Saline IV 500 mls/hr ASDIRECTED CALDERON Administration Discontinued Medications Generic Name Dose Route Start Last Admin Trade Name Don PRN Reason Stop Dose Admin Lorazepam 1 mg 06/27/17 04:55 06/27/17 05:13 Ativan IVPUSH 06/27/17 04:56 1 mg ONETIME ONE Administration Meclizine HCl 25 mg 06/27/17 10:29 06/27/17 10:54 Antivert PO 06/27/17 10:30 25 mg ONETIME ONE Administration - Re-Assessments/Exams Free Text/Narrative Re-Assessment/Exam: 06/27/17 05:00 500 mL of normal saline an hour were started, and the patient was given 1 mg of IV of Ativan. CBC and BMP were obtained. 06/27/17 05:59 After the Ativan and the patient fell asleep soundly. Labs were reassuring. 06/27/17 07:06 At shift change patient was still sleeping soundly. Care was turned over to Dr. Calderón. Departure - Departure Disposition: Home, Self-Care 01 Clinical Impression: Vertigo, Dehydration - Discharge Information Referrals: PCP,None [Primary Care Provider] - Forms: ED Department Discharge Care Plan Goals: low activity, have someone cherck on the pt., antivert 12.5 tid for the next 2 days and prn after that. <Suzy Calderón - Last Filed: 06/27/17 11:26> Course - Re-Assessments/Exams Free Text/Narrative Re-Assessment/Exam: 06/27/17 10:30 pt woke up and she still had some dizziness. She was given antivert 25 mg. She is gong to try some breakfast and will ambulate the pt and see how she does. 06/27/17 11:18 pt ambulated to the bathroom and did ok. She was given antivert 25 1 tab and she ate breakfast and did well with that. Departure - Departure Time of Disposition: 11:19 Condition: Fair
[2017-06-27 10:24] VITALS: BP 123/69
[2017-06-27] MEDS ORDERED: Meclizine 25 MG Tab PO ONE (10:29)
== END 2017-06-27 13:02 | disposition home or self-care (01) ==
LOC: JP.ED 04:12
DX: E86.0 Dehydration (principal); R42 Dizziness and giddiness; E78.00 Pure hypercholesterolemia, unspecified; Z79.899 Other long term (current) drug therapy; Z88.0 Allergy status to penicillin; Z91.040 Latex allergy status; Z88.1 Allergy status to other antibiotic agents; Z88.8 Allergy status to other drugs, medicaments and biological substances
CPT/HCPCS: 36415; 80048; 85025; 96361; 96374; 99284; A9270; J2060; J7040

== ENCOUNTER 2017-06-30 09:37 | Emergency (ER) | payer MEDICARE, MEDICAID ==
--- NOTE | 2017-06-30 10:52 | EDM.PDOC ---
ED HPI GENERAL MEDICAL PROBLEM - General Chief Complaint: Neuro Symptoms/Deficits Stated Complaint: MEDICAL Time Seen by Provider: 06/30/17 10:15 Source of Information: Reports: Patient, Family History Limitations: Reports: No Limitations - History of Present Illness INITIAL COMMENTS - FREE TEXT/NARRATIVE: pt was seen in th ER on Sat and at that time she had marked vertigo She was treated for that and she now just feels off balance. . She has been falling . She did hit her head on the rt side on a coffee table. Onset: Gradual, Other (Pt has been doing this since her visit sat. ) Duration: Hour(s):, Other (Pt is not able to be alone and is not able to ambulate. ) Location: Reports: Head Associated Symptoms: Reports: Other ( Pt has no nausea and she does not feel like the room is spinning. ) - Related Data Allergies Allergy/AdvReac Type Severity Reaction Status Date / Time Penicillins Allergy Severe Anaphylactic Verified 07/02/17 09:34 Shock cefdinir Allergy Intermediate Rash Verified 07/02/17 09:34 Latex, Natural Rubber Allergy Rash Verified 07/02/17 09:34 erythromycin base AdvReac Nausea and Verified 07/02/17 09:34 [Erythromycin Base] Vomiting Home Meds: Home Meds Calcium Carbonate/Vitamin D3 [Calcium 600-Vit D3 200 Tablet] 1 cap PO BID [History] [place]-3 Fatty Acids [[place]-3] 1,000 mg PO DAILY 02/22/14 [History] Cholecalciferol (Vitamin D3) [Vitamin D3] 1,000 unit PO DAILY 03/03/17 [History] Ondansetron [Ondansetron ODT] 4 mg PO ASDIRECTED PRN 03/03/17 [History] Apixaban [Eliquis] 5 mg PO BID 03/17/17 [History] Multivitamin [Gummi Bear Multivitamin] 2 tab PO DAILY 03/17/17 [History] Past Medical History HEENT History: Reports: Cataract, Sinusitis Cardiovascular History: Reports: Blood Clots/VTE/DVT, High Cholesterol Respiratory History: Reports: Bronchitis, Recurrent, Pneumonia, Recurrent Other Gastrointestinal History: CURRENT UTI DX Genitourinary History: Reports: UTI, Recurrent 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 Dermatologic History: Reports: Urticaria Other Dermatologic History: Herpes Zoster - Infectious Disease History Infectious Disease History: Reports: Chicken Pox, Measles, Mumps, Shingles - Past Surgical History HEENT Surgical History: Reports: Other (See Below) Oncologic Surgical History: Reports: Other (See Below) Social & Family History - Family History Family Medical History: Unobtainable - Tobacco Use Smoking Status *Q: Unknown Ever Smoked - Caffeine Use Caffeine Use: Reports: Coffee ED ROS GENERAL - Review of Systems Review Of Systems: See Below Constitutional: Reports: No Symptoms HEENT: Reports: No Symptoms Respiratory: Reports: No Symptoms Cardiovascular: Reports: No Symptoms Endocrine: Reports: No Symptoms GI/Abdominal: Reports: No Symptoms : Reports: No Symptoms Musculoskeletal: Reports: No Symptoms Skin: Reports: No Symptoms Neurological: Reports: Difficulty Walking, Other (Pt feels completely off balance. ) ED EXAM, NEURO - Physical Exam Exam: See Below Text/Narrative:: pt is no longer having vertigo but she is falling and is off balance and can,t tell where she is in space. Exam Limited By: No Limitations General Appearance: Alert, No Apparent Distress, Other ( pupils are equal and reactive. He has a small cut by her rt eye where she fell. ) Ears: Normal TMs Nose: Normal Inspection Throat/Mouth: Normal Inspection Head Exam: Other (pt has bruising above her rt eye with a small cut. ) Neck: Normal Inspection Respiratory/Chest: No Respiratory Distress Cardiovascular: Regular Rate, Rhythm GI/Abdominal: Soft, Non-Tender (Female) Exam: Deferred Rectal (Female) Exam: Deferred Neurological: Alert, Oriented x 3 Back Exam: Normal Inspection Extremities: Normal Inspection Psychiatric: Normal Affect Course - Vital Signs Last Recorded V/S: Last Vital Signs Temp 36.0 C 06/30/17 12:45 Pulse 90 06/30/17 12:45 Resp 14 06/30/17 12:45 BP 137/83 06/30/17 12:45 Pulse Ox 96 06/30/17 12:45 Orthostatic Blood Pressure [ 121/76 Standing] Orthostatic Blood Pressure [ 128/83 Sitting] Orthostatic Blood Pressure [ 135/69 Supine] - Orders/Labs/Meds Labs: Laboratory Tests 06/30/17 06/30/17 06/30/17 Range/Units 10:18 10:18 12:09 WBC 4.2 L (4.5-11.0) K/uL RBC 4.36 (3.30-5.50) M/uL Hgb 13.1 (12.0-15.0) g/dL Hct 41.2 (36.0-48.0) % MCV 95 (80-98) fL MCH 30 (27-31) pg MCHC 32 (32-36) % Plt Count 171 (150-400) K/uL Neut % (Auto) 51 (36-66) % Lymph % (Auto) 35 (24-44) % [place] % (Auto) 10 H (2-6) % Eos % (Auto) 3 (2-4) % Baso % (Auto) 1 (0-1) % Sodium 140 (140-148) mmol/L Potassium 3.9 (3.6-5.2) mmol/L Chloride 104 (100-108) mmol/L Carbon Dioxide 30 (21-32) mmol/L Anion Gap 6.0 (5.0-14.0) mmol/L BUN 12 (7-18) mg/dL Creatinine 1.0 (0.6-1.0) mg/dL Est Cr Clr Drug Dosing 37.10 mL/min Estimated GFR (MDRD) 52 L (>60) Glucose 152 H (74-106) mg/dL Calcium 8.6 (8.5-10.1) mg/dL Total Bilirubin 0.5 (0.2-1.0) mg/dL AST 24 (15-37) U/L ALT 15 (12-78) U/L Alkaline Phosphatase 44 L (46-116) U/L Total Protein 5.8 L (6.4-8.2) g/dL Albumin 2.6 L (3.4-5.0) g/dL Globulin 3.2 (2.3-3.5) g/dL Albumin/Globulin Ratio 0.8 L (1.2-2.2) Urine Color Yellow Urine Appearance Clear Urine pH 8.0 (4.5-8.0) Ur Specific Violet 1.015 (1.008-1.030) Urine Protein Negative (NEGATIVE) mg/dL Urine Glucose (UA) Normal (NEGATIVE) mg/dL Urine Ketones Negative (NEGATIVE) mg/dL Urine Occult Blood Negative (NEGATIVE) Urine Nitrite Negative (NEGATIVE) Urine Bilirubin Negative (NEGATIVE) Urine Urobilinogen Normal (NORMAL) mg/dL Ur Leukocyte Esterase Moderate (NEGATIVE) Urine RBC Not seen (0-5) Urine WBC 0-5 (0-5) Ur Epithelial Cells Rare Amorphous Sediment Not seen Urine Bacteria Not seen Urine Mucus Not seen - Re-Assessments/Exams Free Text/Narrative Re-Assessment/Exam: 06/30/17 12:15 pt had a neg cat scan of the head. She had normal lab work. She is eating and drinking normally. Her daughter is willing to take her home. She can not be admitted here because there are no beds. She was offered transfr to [place] or [place] and she has chosen to go home. Departure - Departure Time of Disposition: 12:21 Disposition: Home, Self-Care 01 Condition: Fair Clinical Impression: Falling episodes, Vertigo - Discharge Information Instructions: Vertigo, [id number] Referrals: PCP,None [Primary Care Provider] - Forms: ED Department Discharge Care Plan Goals: walk with a walker, daughter will stay with pt, If pt gets worse rtc. Pt did refuse transfer to another facility at this time. appt with Dr benites in 3-4 days.
--- NOTE | 2017-06-30 11:05 | CT ---
Head wo Cont INDICATION: off balance, pt has hit her head on the rt TECHNIQUE: CT images of the head obtained without IV contrast. Dosage reduction and iterative reconstruction techniques employed. COMPARISON: 05/08/2017 FINDINGS: No acute intracranial abnormality. No hemorrhage, edema or mass effect. Atrophy small vessel ischemic disease again noted. The ventricles are normal size. Skull intact. Visualized paranasal sinuses clear. IMPRESSION: Nothing acute. Atrophy and chronic small vessel ischemic disease.
[2017-06-30 12:46] VITALS: BP 137/83
== END 2017-06-30 12:51 | disposition home or self-care (01) ==
LOC: JP.ED 09:37
DX: R42 Dizziness and giddiness (principal); Z88.0 Allergy status to penicillin; Z91.040 Latex allergy status; Z88.1 Allergy status to other antibiotic agents; Z79.899 Other long term (current) drug therapy; Z91.81 History of falling
CPT/HCPCS: 36415; 70450; 70450-26; 80053; 81001; 85025; 99284-25

== ENCOUNTER 2017-07-02 09:11 | Emergency (ER) | payer MEDICARE, MEDICAID ==
[2017-07-02 09:38] VITALS: BP 119/68
--- NOTE | 2017-07-02 10:01 | EDM.PDOC ---
ED HPI GENERAL MEDICAL PROBLEM - General Chief Complaint: Neuro Symptoms/Deficits Stated Complaint: dizzy Time Seen by Provider: 07/02/17 09:35 Source of Information: Reports: Patient, Family History Limitations: Reports: No Limitations - History of Present Illness INITIAL COMMENTS - FREE TEXT/NARRATIVE: 87-year-old female brought in by her daughter because of persistent dizziness, weakness, unsteady and now falling. She was seen 2 days ago with recurring vertigo, improved while in the emergency room and her workup including CT of her head and laboratory were unremarkable. She is very concerned because just a few weeks ago she was out raking leaves and planting cota, now she can't even get around her house. Her appetite is still good. She has no pain. She denies shortness of breath or palpitations. She doesn't understand why she feels so poorly. Onset: Unknown/Unsure Severity: Moderate Associated Symptoms: Reports: Malaise, Weakness. Denies: Chest Pain, Cough, Fever/Chills, Headaches, Loss of Appetite, Nausea/Vomiting, Shortness of Breath - Related Data Allergies Allergy/AdvReac Type Severity Reaction Status Date / Time Penicillins Allergy Severe Anaphylactic Verified 07/02/17 09:34 Shock cefdinir Allergy Intermediate Rash Verified 07/02/17 09:34 Latex, Natural Rubber Allergy Rash Verified 07/02/17 09:34 erythromycin base AdvReac Nausea and Verified 07/02/17 09:34 [Erythromycin Base] Vomiting Home Meds: Home Meds Calcium Carbonate/Vitamin D3 [Calcium 600-Vit D3 200 Tablet] 1 cap PO BID [History] [place]-3 Fatty Acids [[place]-3] 1,000 mg PO DAILY 02/22/14 [History] Cholecalciferol (Vitamin D3) [Vitamin D3] 1,000 unit PO DAILY 03/03/17 [History] Ondansetron [Ondansetron ODT] 4 mg PO ASDIRECTED PRN 03/03/17 [History] Apixaban [Eliquis] 5 mg PO BID 03/17/17 [History] Multivitamin [Gummi Bear Multivitamin] 2 tab PO DAILY 03/17/17 [History] Past Medical History HEENT History: Reports: Cataract, Sinusitis Cardiovascular History: Reports: Blood Clots/VTE/DVT, High Cholesterol Respiratory History: Reports: Bronchitis, Recurrent, Pneumonia, Recurrent Other Gastrointestinal History: CURRENT UTI DX Genitourinary History: Reports: UTI, Recurrent 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 Dermatologic History: Reports: Urticaria Other Dermatologic History: Herpes Zoster - Infectious Disease History Infectious Disease History: Reports: Chicken Pox, Measles, Mumps, Shingles - Past Surgical History HEENT Surgical History: Reports: Other (See Below) Oncologic Surgical History: Reports: Other (See Below) Social & Family History - Family History Family Medical History: Unobtainable - Tobacco Use Smoking Status *Q: Unknown Ever Smoked - Caffeine Use Caffeine Use: Reports: Coffee ED ROS GENERAL - Review of Systems Review Of Systems: See Below Constitutional: Reports: Malaise, Weakness. Denies: Fever, Chills HEENT: Denies: Vision Change Respiratory: Denies: Shortness of Breath, Cough Cardiovascular: Denies: Chest Pain GI/Abdominal: Denies: Abdominal Pain, Decreased Appetite, Nausea, Vomiting : Reports: No Symptoms Skin: Reports: No Symptoms Neurological: Reports: Dizziness. Denies: Headache ED EXAM, NEURO - Physical Exam Exam: See Below Exam Limited By: No Limitations General Appearance: Alert, No Apparent Distress, Other (Looks tired, weak but not distressed) Eye Exam: Right Eye: EOMI (I do not find nystagmus on her exam) Head Exam: Atraumatic Neck: Normal Inspection, Non-Tender Respiratory/Chest: No Respiratory Distress, Lungs Clear Cardiovascular: Regular Rate, Rhythm, No Murmur. No: Extra Beats GI/Abdominal: Soft, Non-Tender Neurological: Alert, No Motor/Sensory Deficits (She has diffuse global weakness , no asymmetries), Oriented x 3 Extremities: Other (Just a trace of potts edema bilaterally is present) Skin Exam: Warm, Dry (Skin is thin but there are no widespread bruises or traumatic evidence) Course - Vital Signs Last Recorded V/S: Last Vital Signs Temp 96.8 F 07/02/17 09:36 Pulse 97 07/02/17 12:00 Resp 14 07/02/17 12:00 BP 119/68 07/02/17 12:00 Pulse Ox 95 07/02/17 12:00 - Orders/Labs/Meds Labs: Laboratory Tests 07/02/17 07/02/17 Range/Units 10:15 10:15 ESR 16 (0-25) mm/hr TSH, Ultra Sensitive 3.859 H (0.358-3.740) uIU/mL - Re-Assessments/Exams Free Text/Narrative Re-Assessment/Exam: 07/02/17 10:00 Records were reviewed, 2 days ago she had a CT of her head, CBC CMP and UA. Today I'm going to check her sedimentation rate and thyroid function but really don't know what more to offer, especially if those return normal. 07/02/17 11:51 Sedimentation rate is still normal, TSH is also normal. Discussed with the hospitalist service whether admission would be beneficial and it really is no treatment available. This may just take some more time. The family is going to keep an eye and her for a few more days to see if she improves. Departure - Departure Time of Disposition: 12:01 Disposition: Home, Self-Care 01 Condition: Fair Clinical Impression: Vertigo, Falling episodes - Discharge Information Instructions: Dizziness, [id number] Referrals: PCP,None [Primary Care Provider] - Forms: ED Department Discharge Care Plan Goals: Increase activity as tolerated, use your walker for the next several days. Return if worsening such as fever or vomiting, or unexplained pain.
== END 2017-07-02 12:02 | disposition home or self-care (01) ==
LOC: JP.ED 09:11
DX: R42 Dizziness and giddiness (principal); Z88.0 Allergy status to penicillin; Z88.8 Allergy status to other drugs, medicaments and biological substances; Z91.040 Latex allergy status; Z88.1 Allergy status to other antibiotic agents; Z79.899 Other long term (current) drug therapy; Z91.81 History of falling
CPT/HCPCS: 36415; 84443; 85651; 99284

== ENCOUNTER 2017-07-13 15:09 | Observation (INO) | payer MEDICARE, MEDICAID ==
[2017-07-13] MEDS ORDERED: LORazepam 2 MG/ML SDV IVPUSH ONE ×2 (15:13→18:36)
[2017-07-13] MEDS ORDERED: Sodium Chloride 0.9% 1,000 ML IV SCH ×2 (15:15→19:53)
--- NOTE | 2017-07-13 15:24 | EDM.PDOC ---
ED HPI GENERAL MEDICAL PROBLEM - General Chief Complaint: Neuro Symptoms/Deficits Stated Complaint: BECAME ILL WHILE IN THE CAR Time Seen by Provider: 07/13/17 15:10 Source of Information: Reports: Patient, EMS History Limitations: Reports: No Limitations - History of Present Illness INITIAL COMMENTS - FREE TEXT/NARRATIVE: Lucy is an 87-year-old female with a history of vertigo who presents to the emergency department today via EMS after becoming acutely ill and dizzy in the car. Patient has been evaluated here now for the third time for this complaint, she was taking meclizine but took her last dose yesterday. Patient denies any other complaints, she arrives here pale, diaphoretic and clearly uncomfortable, she is unable to open her eyes secondary to the dizziness. Patient denies any trauma or head injury. Patient denies any chest pain. Patient is on Eliquis for a right-sided pulmonary embolism. Patient was given Zofran per paramedics prior to arrival here. Onset: Today, Sudden - Related Data Allergies Allergy/AdvReac Type Severity Reaction Status Date / Time Penicillins Allergy Severe Anaphylactic Verified 07/13/17 15:11 Shock cefdinir Allergy Intermediate Rash Verified 07/13/17 15:11 Latex, Natural Rubber Allergy Rash Verified 07/13/17 15:11 erythromycin base AdvReac Nausea and Verified 07/13/17 15:11 [Erythromycin Base] Vomiting Home Meds: Home Meds Calcium Carbonate/Vitamin D3 [Calcium 600-Vit D3 200 Tablet] 1 cap PO BID [History] [place]-3 Fatty Acids [[place]-3] 1,000 mg PO DAILY 02/22/14 [History] Cholecalciferol (Vitamin D3) [Vitamin D3] 1,000 unit PO DAILY 03/03/17 [History] Ondansetron [Ondansetron ODT] 4 mg PO ASDIRECTED PRN 03/03/17 [History] Apixaban [Eliquis] 5 mg PO BID 03/17/17 [History] Multivitamin [Gummi Bear Multivitamin] 2 tab PO DAILY 03/17/17 [History] Past Medical History HEENT History: Reports: Cataract, Sinusitis Cardiovascular History: Reports: Blood Clots/VTE/DVT, High Cholesterol Respiratory History: Reports: Bronchitis, Recurrent, Pneumonia, Recurrent Other Gastrointestinal History: CURRENT UTI DX Genitourinary History: Reports: UTI, 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 Dermatologic History: Reports: Urticaria Other Dermatologic History: Herpes Zoster - Infectious Disease History Infectious Disease History: Reports: Chicken Pox, Measles, Mumps, Shingles - Past Surgical History HEENT Surgical History: Reports: Other (See Below) Oncologic Surgical History: Reports: Other (See Below) Social & Family History - Family History Family Medical History: Unobtainable - Tobacco Use Smoking Status *Q: Never Smoker - Caffeine Use Caffeine Use: Reports: Coffee - Recreational Drug Use Recreational Drug Use: Yes ED ROS GENERAL - Review of Systems Review Of Systems: See Below Constitutional: Reports: Diaphoresis, Decreased Appetite HEENT: Reports: Vertigo Respiratory: Reports: No Symptoms Cardiovascular: Reports: No Symptoms Endocrine: Reports: No Symptoms GI/Abdominal: Reports: Nausea, Vomiting : Reports: No Symptoms Musculoskeletal: Reports: No Symptoms Skin: Reports: Pallor Neurological: Reports: Dizziness, Other (Near syncope) Psychiatric: Reports: No Symptoms Hematologic/Lymphatic: Reports: No Symptoms Immunologic: Reports: No Symptoms ED EXAM, NEURO - Physical Exam Exam: See Below Exam Limited By: No Limitations General Appearance: Alert, Other (Pale, diaphoretic female with her eyes closed) Eye Exam: Bilateral Eye: EOMI, PERRL Respiratory/Chest: No Respiratory Distress Cardiovascular: Regular Rate, Rhythm GI/Abdominal: Normal Bowel Sounds, Soft, Non-Tender Neurological: Alert Extremities: Normal Inspection Psychiatric: Anxious Skin Exam: Diaphoretic, Pallor EKG INTERPRETATION EKG Date: 07/13/17 Time: 15:55 Rhythm: NSR [place]: Normal P-Wave: Present QRS: Normal ST-T: Normal QT: Normal Comparison: No Change Course - Vital Signs Last Recorded V/S: Last Vital Signs Temp 36.7 C 07/13/17 15:12 Pulse 79 07/13/17 17:50 Resp 18 07/13/17 17:50 BP 154/78 H 07/13/17 17:50 Pulse Ox 94 L 07/13/17 17:50 Lucy is an 87-year-old female with a history of vertigo who presents to the emergency department today with sudden onset of dizziness, nausea and vomiting. Patient arrives here via EMS. Blood work today is fairly unremarkable, there is no sign of infection, hemoglobin is stable. Patient was given IV fluids here, IV Ativan, Benadryl and Zofran and at 1750 continues to moan and complain of mild nausea. EKG was obtained and is unremarkable, secondary to ongoing symptoms despite several IV medications being effective I did elect to obtain a CT scan of patient's head as she is unable despite no history of trauma. Fortunately CT scan was negative for any acute intracranial findings. IV fluids continue to infuse, at this time we will continue to monitor patient and plan for discharge for home as her symptoms improve. Patient continues to feel miserable, dizzy, nauseated. Given patient's inability to care for herself at this time in light of her age and ongoing vertigo-type symptoms we will plan for admission for ongoing treatment, likely MRI in the morning to rule out any other cause for her symptoms. Patient and family agreeable to plan of care, patient accepted by Dr. Liu. - Orders/Labs/Meds Orders: Active Orders 24 hr Category Date Time Status Cardiac Monitoring [RC] .As Directed Care 07/13/17 15:14 Active EKG Documentation Completion [RC] ASDIRECTED Care 07/13/17 15:12 Active Head wo Cont [CT] Stat Exams 07/13/17 16:30 Taken URINALYSIS W/MICROSCOPIC [UA W/MICROSCOPIC] [URIN] Stat Lab 07/13/17 15:14 Ordered Sodium Chloride 0.9% [Normal Saline] 1,000 ml Med 07/13/17 15:15 Active IV ASDIRECTED EKG 12 Lead [EK] Stat Ther 07/13/17 15:12 Ordered Medication Orders Sodium Chloride (Normal Saline) 1,000 mls @ 125 mls/hr IV ASDIRECTED CALDERON Last Admin: 07/13/17 15:26 Dose: 125 mls/hr Labs: Laboratory Tests 07/13/17 07/13/17 Range/Units 15:27 15:27 WBC 5.0 (4.5-11.0) K/uL RBC 4.40 (3.30-5.50) M/uL Hgb 13.2 (12.0-15.0) g/dL Hct 40.5 (36.0-48.0) % MCV 92 (80-98) fL MCH 30 (27-31) pg MCHC 33 (32-36) % Plt Count 164 (150-400) K/uL Neut % (Auto) 52 (36-66) % Lymph % (Auto) 35 (24-44) % [place] % (Auto) 9 H (2-6) % Eos % (Auto) 3 (2-4) % Baso % (Auto) 1 (0-1) % Sodium 140 (140-148) mmol/L Potassium 3.9 (3.6-5.2) mmol/L Chloride 107 (100-108) mmol/L Carbon Dioxide 28 (21-32) mmol/L Anion Gap 5.4 (5.0-14.0) mmol/L BUN 14 (7-18) mg/dL Creatinine 0.9 (0.6-1.0) mg/dL Est Cr Clr Drug Dosing 38.03 mL/min Estimated GFR (MDRD) 59 L (>60) Glucose 114 H (74-106) mg/dL Calcium 8.2 L (8.5-10.1) mg/dL Total Bilirubin 0.4 (0.2-1.0) mg/dL AST 21 (15-37) U/L ALT 18 (12-78) U/L Alkaline Phosphatase 46 (46-116) U/L Troponin I < 0.017 (0.000-0.056) ng/mL Total Protein 6.3 L (6.4-8.2) g/dL Albumin 2.9 L (3.4-5.0) g/dL Globulin 3.4 (2.3-3.5) g/dL Albumin/Globulin Ratio 0.9 L (1.2-2.2) Meds: Medications Generic Name Dose Route Start Last Admin Trade Name Freq PRN Reason Stop Dose Admin Sodium Chloride 1,000 mls @ 125 mls/hr 07/13/17 15:15 07/13/17 15:26 Normal Saline IV 125 mls/hr ASDIRECTED CALDERON Administration Discontinued Medications Generic Name Dose Route Start Last Admin Trade Name Freq PRN Reason Stop Dose Admin Diphenhydramine HCl 25 mg 07/13/17 16:29 07/13/17 16:37 Benadryl IVPUSH 07/13/17 16:30 25 mg ONETIME ONE Administration Lorazepam 0.5 mg 07/13/17 15:13 07/13/17 15:26 Ativan IVPUSH 07/13/17 15:14 0.5 mg ONETIME ONE Administration Lorazepam 0.5 mg 07/13/17 18:36 Ativan IVPUSH 07/13/17 18:37 ONETIME ONE Ondansetron HCl 8 mg 07/13/17 16:02 07/13/17 16:06 Zofran IVPUSH 07/13/17 16:03 8 mg ONETIME ONE Administration Departure - Departure Time of Disposition: 19:30 Disposition: Admitted As Inpatient 66 Condition: Fair Clinical Impression: Vertigo Nausea and vomiting Qualifiers: Vomiting type: unspecified Vomiting Intractability: intractable Qualified Code( s): R11.2 - Nausea with vomiting, unspecified - Discharge Information Referrals: PCP,None [Primary Care Provider] - Forms: ED Department Discharge - My Orders Last 24 Hours: My Active Orders 07/13/17 15:12 EKG Documentation Completion [RC] ASDIRECTED EKG 12 Lead [EK] Stat 07/13/17 15:14 Cardiac Monitoring [RC] .As Directed URINALYSIS W/MICROSCOPIC [UA W/MICROSCOPIC] [URIN] Stat 07/13/17 15:15 Sodium Chloride 0.9% [Normal Saline] 1,000 ml IV ASDIRECTED 07/13/17 16:30 Head wo Cont [CT] Stat - Assessment/Plan Last 24 Hours: My Active Orders 07/13/17 15:12 EKG Documentation Completion [RC] ASDIRECTED EKG 12 Lead [EK] Stat 07/13/17 15:14 Cardiac Monitoring [RC] .As Directed URINALYSIS W/MICROSCOPIC [UA W/MICROSCOPIC] [URIN] Stat 07/13/17 15:15 Sodium Chloride 0.9% [Normal Saline] 1,000 ml IV ASDIRECTED 07/13/17 16:30 Head wo Cont [CT] Stat
[2017-07-13] MEDS ORDERED: Ondansetron 4 MG/2 ML SDV IVPUSH ONE (16:02)
[2017-07-13] MEDS ORDERED: diphenhydrAMINE 50 MG/ML SDV IVPUSH ONE (16:29)
--- NOTE | 2017-07-13 19:20 | PCM.HP ---
H&P History of Present Illness - General Date of Service: 07/13/17 Admit Problem/Dx: Admission Diagnosis/Problem Admission Diagnosis/Problem Vertigo Source of Information: Patient History Limitations: Reports: Altered Mental Status (lethargic 2/2 lorazepam) - History of Present Illness Initial Comments - Free Text/Narative: Lucy presented to the emergency room today with dizziness that started while she was driving. She has recently had lorazepam and is lethargic and provides some history but falls asleep very quickly. She reports off and on difficulty with symptoms of dizziness over the past couple of weeks especially but over the past few months as well. She had done some physical therapy and thought things were getting a little better but the attack today she reports is one of the worst. She is not sure if the room is spinning or if she is spinning but has the sensation of vertigo. when she gets dizzy she becomes nauseated and vomits. She has done this multiple times today. She has a mild achy frontal headache that has been present throughout the day. She hasn't taken anything to make it better. It has not gotten any worse. No fevers at home. No complaints of cough or shortness of breath. No diarrhea. She had been using meclizine for very mild episodes of dizziness but ran out yesterday. In the emergency department today she had a head CT which was unremarkable. She has received several doses of medication without much improvement in the way of symptoms. Fortunately she has stopped vomiting. because of the severity of symptoms she is thought to not be safe for outpatient management and will be admitted for further management and additional workup. - Related Data Allergies/Adverse Reactions: Allergies Allergy/AdvReac Type Severity Reaction Status Date / Time Penicillins Allergy Severe Anaphylactic Verified 07/13/17 15:11 Shock cefdinir Allergy Intermediate Rash Verified 07/13/17 15:11 Latex, Natural Rubber Allergy Rash Verified 07/13/17 15:11 erythromycin base AdvReac Nausea and Verified 07/13/17 15:11 [Erythromycin Base] Vomiting Home Medications: Home Meds Calcium Carbonate/Vitamin D3 [Calcium 600-Vit D3 200 Tablet] 1 cap PO BID [History] [place]-3 Fatty Acids [[place]-3] 1,000 mg PO DAILY 02/22/14 [History] Cholecalciferol (Vitamin D3) [Vitamin D3] 1,000 unit PO DAILY 03/03/17 [History] Ondansetron [Ondansetron ODT] 4 mg PO ASDIRECTED PRN 03/03/17 [History] Apixaban [Eliquis] 5 mg PO BID 03/17/17 [History] Multivitamin [Gummi Bear Multivitamin] 2 tab PO DAILY 03/17/17 [History] Past Medical History HEENT History: Reports: Cataract, Sinusitis Cardiovascular History: Reports: Blood Clots/VTE/DVT, High Cholesterol Respiratory History: Reports: Bronchitis, Recurrent, Pneumonia, Recurrent Other Gastrointestinal History: CURRENT UTI DX Genitourinary History: 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 Dermatologic History: Reports: Urticaria Other Dermatologic History: Herpes Zoster - Infectious Disease History Infectious Disease History: Reports: Chicken Pox, Measles, Mumps, Shingles - Past Surgical History HEENT Surgical History: Reports: Other (See Below) Oncologic Surgical History: Reports: Other (See Below) Social & Family History - Family History Family Medical History: Unobtainable - Tobacco Use Smoking Status *Q: Never Smoker - Caffeine Use Caffeine Use: Reports: Coffee - Alcohol Use Alcohol Use History: No - Recreational Drug Use Recreational Drug Use: Yes H&P Review of Systems - Review of Systems: Review Of Systems: See Below Free Text/Narrative: A complete 12 point review of systems was attempted in the emergency room today. Pertinent positives and negatives are noted in the history of present illness. All other systems were reviewed and were negative or the patient was not able to answer. Exam - Exam Exam: See Below - Vital Signs Vital Signs: Last Vital Signs Temp 36.7 C 07/13/17 15:12 Pulse 79 07/13/17 17:50 Resp 18 07/13/17 17:50 BP 154/78 H 07/13/17 17:50 Pulse Ox 94 L 07/13/17 17:50 Weight: 60.328 kg - Exam Quality Assessment: No: Supplemental Oxygen General: Alert, Cooperative, Lethargic. No: Mild Distress HEENT: Conjunctiva Clear, Mucosa Moist & University, Other (right auditory canal occulded by cerumen ). No: Scleral Icterus Neck: Supple, Trachea Midline. No: Lymphadenopathy Lungs: Clear to Auscultation, Normal Respiratory Effort Cardiovascular: Regular Rate, Regular Rhythm. No: Systolic Murmur GI/Abdominal Exam: Normal Bowel Sounds, Soft, Non-Tender, No Distention Extremities: No Pedal Edema. No: Increased Warmth Skin: Warm, Dry Neuro Extensive - Mental Status: Alert, Oriented x3, Slow Response to Commands Neuro Extensive - Motor, Sensory, Reflexes: CN II-XII Intact, Other (no nystagmus ). No: Dysarthria, Facial Palsy (R), Facial palsy (L), Abnormal Motor , Tremor Psychiatric: Alert. No: Anxious - Patient Data Lab Results Last 24 hrs: Laboratory Results - last 24 hr 07/13/17 07/13/17 Range/Units 15:27 15:27 WBC 5.0 (4.5-11.0) K/uL RBC 4.40 (3.30-5.50) M/uL Hgb 13.2 (12.0-15.0) g/dL Hct 40.5 (36.0-48.0) % MCV 92 (80-98) fL MCH 30 (27-31) pg MCHC 33 (32-36) % Plt Count 164 (150-400) K/uL Neut % (Auto) 52 (36-66) % Lymph % (Auto) 35 (24-44) % [place] % (Auto) 9 H (2-6) % Eos % (Auto) 3 (2-4) % Baso % (Auto) 1 (0-1) % Sodium 140 (140-148) mmol/L Potassium 3.9 (3.6-5.2) mmol/L Chloride 107 (100-108) mmol/L Carbon Dioxide 28 (21-32) mmol/L Anion Gap 5.4 (5.0-14.0) mmol/L BUN 14 (7-18) mg/dL Creatinine 0.9 (0.6-1.0) mg/dL Est Cr Clr Drug Dosing 38.03 mL/min Estimated GFR (MDRD) 59 L (>60) Glucose 114 H (74-106) mg/dL Calcium 8.2 L (8.5-10.1) mg/dL Total Bilirubin 0.4 (0.2-1.0) mg/dL AST 21 (15-37) U/L ALT 18 (12-78) U/L Alkaline Phosphatase 46 (46-116) U/L Troponin I < 0.017 (0.000-0.056) ng/mL Total Protein 6.3 L (6.4-8.2) g/dL Albumin 2.9 L (3.4-5.0) g/dL Globulin 3.4 (2.3-3.5) g/dL Albumin/Globulin Ratio 0.9 L (1.2-2.2) Result Diagrams: 07/13/17 15:27 07/13/17 15:27 Imaging Impressions Last 24 hrs: Head CT - images personally reviewed - no acute intracranial findings, no massess, no bleed *Q Meaningful Use (ADM) - VTE Risk Assess *Q Each Risk Factor Represents 1 Point: None Total Score 1 Point Risk Factors: 0 Each Risk Factor Represents 2 Points: None Total Score 2 Point Risk Factors: 0 Each Risk Factor Represents 3 Points: History of DVT/PE Total Score 3 Point Risk Factors: 3 Each Risk Factor Represents 5 Points: None Total Score 5 Point Risk Factors: 0 Venous Thromboembolism Risk Factor Score *Q: 3 - Problem List (1) Vertigo SNOMED Code(s): 525505134 ICD Code: R42 - DIZZINESS AND GIDDINESS Status: Acute Current Visit: Yes (2) Nausea and vomiting SNOMED Code(s): 84602533 ICD Code: R11.2 - NAUSEA WITH VOMITING, UNSPECIFIED Status: Acute Current Visit: Yes Qualifiers: Vomiting type: unspecified Vomiting Intractability: intractable Qualified Code(s): R11.2 - Nausea with vomiting, unspecified (3) Pulmonary embolism SNOMED Code(s): 76237941 ICD Code: I26.99 - OTHER PULMONARY EMBOLISM WITHOUT ACUTE COR PULMONALE Status: Chronic Current Visit: Yes Qualifiers: Pulmonary embolism type: other Chronicity: chronic Acute cor pulmonale presence: without acute cor pulmonale Qualified Code(s): I27.82 - Chronic pulmonary embolism Problem List Initiated/Reviewed/Updated: Yes Orders Last 24hrs: Active Orders 24 hr Category Date Time Status Patient Status Manage Transfer [TRANSFER] Routine ADT 07/13/17 19:11 Ordered Cardiac Monitoring [RC] .As Directed Care 07/13/17 15:14 Active EKG Documentation Completion [RC] ASDIRECTED Care 07/13/17 15:12 Active Head wo Cont [CT] Stat Exams 07/13/17 16:30 Taken URINALYSIS W/MICROSCOPIC [UA W/MICROSCOPIC] [URIN] Stat Lab 07/13/17 15:14 Ordered Sodium Chloride 0.9% [Normal Saline] 1,000 ml Med 07/13/17 15:15 Active IV ASDIRECTED Resuscitation Status Routine Resus Stat 07/13/17 19:12 Ordered EKG 12 Lead [EK] Stat Ther 07/13/17 15:12 Ordered Medication Orders Sodium Chloride (Normal Saline) 1,000 mls @ 125 mls/hr IV ASDIRECTED CALDERON Last Admin: 07/13/17 15:26 Dose: 125 mls/hr Assessment/Plan Comment:: ASSESSMENT AND PLAN - Recurrent dizziness/vertigo - symptoms for several months but seems to be more impressive in the past few weeks. Several head CTs have not shown any acute pathology. I don't appreciate any nystatin is on exam today. No concerning medications identified on her home medication list. given the severity and persistence of her symptoms she would benefit from additional workup including an MRI. Vomiting has resolved for the time being with medications provided in the emergency room. -Symptomatically management with meclizine, lorazepam -Gentle IV fluids overnight -Vestibular rehabilitation in the morning -MRI of the brain in the morning History of pulmonary emboli - currently anticoagulated with apixaban. -cont apixaban Maintenance issues - - DVT prophylaxis - apixaban - GI prophylaxis - not indicated - Nutrition - clear liquids as tolerated - Garcia catheter - not indicated CODE STATUS - full code Admission justification - patient will be referred observation status for symptom management and additional workup Disposition - anticipate discharge home after the hospital stay Primary care physician - Dr Levar Liu M.D.
[2017-07-13] MEDS ORDERED: Acetaminophen 325 MG Tab PO PRN (19:53)
[2017-07-13] MEDS ORDERED: Ondansetron 4 MG/2 ML SDV IV PRN (19:53)
[2017-07-13] MEDS ORDERED: LORazepam 2 MG/ML SDV IV PRN (19:53)
[2017-07-13] MEDS ORDERED: Meclizine 25 MG Tab PO PRN (19:53)
[2017-07-13] MEDS ORDERED: Ondansetron 4 MG Tab.DIS PO PRN (19:53)
[2017-07-13] MEDS ORDERED: Apixaban 5 MG Tab PO SCH (21:00)
--- NOTE | 2017-07-14 08:52 | MR ---
Brain wo Cont INDICATION: recurrent vertigo, r/o stroke COMPARISON: CT head 07/13/2017. FINDINGS: Generalized cerebral and cerebellar volume loss. Confluent T2 hyperintensity in the periven tricular and subcortical deep white matter, as well as within the zackery, that is nonspecific but most compatible with chronic small vessel ischemic changes. No restricted diffusion or abnormal hemosideri n deposition. Fluid in bilateral mastoid air cells, greater on the left. Minimal mucosal thickening e thmoid sinuses. Exam otherwise negative. IMPRESSION: 1. Volume loss and chronic white matter changes. 2. Bilateral mastoiditis.
[2017-07-14 10:05] VITALS: BP 125/67
--- NOTE | 2017-07-14 10:05 | PCM.DCSUM1 ---
Discharge Summary - Hospital Course Brief History: 87-year-old female with recent pulmonary embolism and recurrent episodes of vertigo who presented with acute dizziness, nausea and vomiting. She was admitted for observation, management and further workup. - Discharge Data Discharge Date: 07/14/17 Discharge Disposition: Home, Self-Care 01 Condition: Good - Discharge Diagnosis/Problem(s) (1) Vertigo SNOMED Code(s): 260158096 ICD Code: R42 - DIZZINESS AND GIDDINESS Status: Acute (2) Nausea and vomiting SNOMED Code(s): 90718280 ICD Code: R11.2 - NAUSEA WITH VOMITING, UNSPECIFIED Status: Acute Qualifiers: Vomiting type: unspecified Vomiting Intractability: intractable Qualified Code(s): R11.2 - Nausea with vomiting, unspecified (3) Pulmonary embolism SNOMED Code(s): 35754682 ICD Code: I26.99 - OTHER PULMONARY EMBOLISM WITHOUT ACUTE COR PULMONALE Status: Chronic Qualifiers: Pulmonary embolism type: other Chronicity: chronic Acute cor pulmonale presence: without acute cor pulmonale Qualified Code(s): 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 PT Reason for Consult: Vestibular This query below is only for informational purposes and is not editable. Hospital Course: Lucy presented to the emergency room with acute onset of dizziness. Despite several rounds of medications in the emergency room she remained very symptomatic with dizziness, nausea and vomiting. Vertigo was suspected with multiple recent episodes. Head CT did not suggest acute pathology. She was admitted for observation and additional management and workup. Overnight she did quite well and her symptoms slowly improved and eventually resolved. The morning after admission she does not have any dizziness, nausea or vomiting. We did complete an MRI of the brain which did not show any evidence for stroke or other abnormality. She feels well at this time and is interested in going home. The exact cause for her recurrent issues as not entirely clear at this point. She does have some exercises provided by vestibular rehabilitation that she will continue to use. I did provide a prescription for meclizine which had been helping significantly prior to this episode. She may benefit from referral to a specialist if she has ongoing problems. She may benefit from additional vestibular rehabilitation if symptoms do not continue to improve. - Patient Instructions Diet: Regular Diet as Tolerated Activity: As Tolerated Showering/Bathing: May Shower Notify Provider of: Fever, Increased Pain, Nausea and/or Vomiting Other/Special Instructions: 1. You were in the hospital for observation after a recurrent episode of vertigo/dizziness. We did perform an MRI of your brain which did not show evidence for stroke or other abnormality. I have provided a prescription for meclizine. You can use this medication every 6 hours as needed to help abort these episodes as they occur. 2. You can continue to use the ondansetron tablets as needed for nausea. 3. Follow-up with Dr. Cristobal as needed after your hospital stay. 4. Continue to perform your exercises provided by the vestibular rehabilitation folks from occupational therapy. 5. Please seek medical attention if you have recurrence of the severe episodes of dizziness or if you have persistent vomiting. - Discharge Plan Prescriptions/Med Rec: Meclizine [Antivert] 25 mg PO Q6H PRN #30 tab PRN Reason: Dizziness Home Medications: Home Meds Calcium Carbonate/Vitamin D3 [Calcium 600-Vit D3 200 Tablet] 1 cap PO BID [History] [place]-3 Fatty Acids [[place]-3] 1,000 mg PO DAILY 02/22/14 [History] Cholecalciferol (Vitamin D3) [Vitamin D3] 1,000 unit PO DAILY 03/03/17 [History] Ondansetron [Ondansetron ODT] 4 mg PO ASDIRECTED PRN 03/03/17 [History] Apixaban [Eliquis] 5 mg PO BID 03/17/17 [History] Multivitamin [Gummi Bear Multivitamin] 2 tab PO DAILY 03/17/17 [History] Meclizine [Antivert] 25 mg PO Q6H PRN #30 tab 07/14/17 [Rx] Patient Handouts: Meclizine tablets or capsules, Vertigo Referrals: Prabha Cristobal MD [Physician] - - Discharge Summary/Plan Comment DC Time >30 min.: No (25) - Patient Data Vitals - Most Recent: Last Vital Signs Temp 36.1 C 07/14/17 04:00 Pulse 66 07/13/17 23:21 Resp 16 07/14/17 04:00 BP 113/52 L 07/14/17 04:00 Pulse Ox 100 07/14/17 04:00 Weight - Most Recent: 58.105 kg I&O - Last 24 hours: Intake & Output 07/13/17 07/14/17 07/14/17 22:59 06:59 14:59 Intake Total 240 547 Output Total 200 300 Balance 40 247 Lab Results - Last 24 hrs: Laboratory Results - last 24 hr 07/13/17 07/13/17 07/13/17 Range/Units 15:27 15:27 20:48 WBC 5.0 (4.5-11.0) K/uL RBC 4.40 (3.30-5.50) M/uL Hgb 13.2 (12.0-15.0) g/dL Hct 40.5 (36.0-48.0) % MCV 92 (80-98) fL MCH 30 (27-31) pg MCHC 33 (32-36) % Plt Count 164 (150-400) K/uL Neut % (Auto) 52 (36-66) % Lymph % (Auto) 35 (24-44) % [place] % (Auto) 9 H (2-6) % Eos % (Auto) 3 (2-4) % Baso % (Auto) 1 (0-1) % ESR (0-25) mm/hr Sodium 140 (140-148) mmol/L Potassium 3.9 (3.6-5.2) mmol/L Chloride 107 (100-108) mmol/L Carbon Dioxide 28 (21-32) mmol/L Anion Gap 5.4 (5.0-14.0) mmol/L BUN 14 (7-18) mg/dL Creatinine 0.9 (0.6-1.0) mg/dL Est Cr Clr Drug Dosing 38.03 mL/min Estimated GFR (MDRD) 59 L (>60) Glucose 114 H (74-106) mg/dL Calcium 8.2 L (8.5-10.1) mg/dL Total Bilirubin 0.4 (0.2-1.0) mg/dL AST 21 (15-37) U/L ALT 18 (12-78) U/L Alkaline Phosphatase 46 (46-116) U/L Troponin I < 0.017 (0.000-0.056) ng/mL C-Reactive Protein (0.0-0.3) mg/dL Total Protein 6.3 L (6.4-8.2) g/dL Albumin 2.9 L (3.4-5.0) g/dL Globulin 3.4 (2.3-3.5) g/dL Albumin/Globulin Ratio 0.9 L (1.2-2.2) Urine Color Yellow Urine Appearance Clear Urine pH 6.0 (4.5-8.0) Ur Specific [place] 1.025 (1.008-1.030) Urine Protein Negative (NEGATIVE) mg/dL Urine Glucose (UA) Normal (NEGATIVE) mg/dL Urine Ketones 15 H (NEGATIVE) mg/dL Urine Occult Blood Negative (NEGATIVE) Urine Nitrite Negative (NEGATIVE) Urine Bilirubin Negative (NEGATIVE) Urine Urobilinogen Normal (NORMAL) mg/dL Ur Leukocyte Esterase Negative (NEGATIVE) Urine RBC 5-10 H (0-5) Urine WBC 5-10 H (0-5) Ur Epithelial Cells Few Amorphous Sediment Not seen Urine Bacteria Few Urine Mucus Moderate 07/14/17 07/14/17 Range/Units 04:00 05:11 WBC 4.7 (4.5-11.0) K/uL RBC 4.01 (3.30-5.50) M/uL Hgb 12.0 (12.0-15.0) g/dL Hct 37.2 (36.0-48.0) % MCV 93 (80-98) fL MCH 30 (27-31) pg MCHC 32 (32-36) % Plt Count 148 L (150-400) K/uL Neut % (Auto) (36-66) % Lymph % (Auto) (24-44) % [place] % (Auto) (2-6) % Eos % (Auto) (2-4) % Baso % (Auto) (0-1) % ESR 16 (0-25) mm/hr Sodium (140-148) mmol/L Potassium (3.6-5.2) mmol/L Chloride (100-108) mmol/L Carbon Dioxide (21-32) mmol/L Anion Gap (5.0-14.0) mmol/L BUN (7-18) mg/dL Creatinine (0.6-1.0) mg/dL Est Cr Clr Drug Dosing mL/min Estimated GFR (MDRD) (>60) Glucose (74-106) mg/dL Calcium (8.5-10.1) mg/dL Total Bilirubin (0.2-1.0) mg/dL AST (15-37) U/L ALT (12-78) U/L Alkaline Phosphatase (46-116) U/L Troponin I (0.000-0.056) ng/mL C-Reactive Protein 0.10 (0.0-0.3) mg/dL Total Protein (6.4-8.2) g/dL Albumin (3.4-5.0) g/dL Globulin (2.3-3.5) g/dL Albumin/Globulin Ratio (1.2-2.2) Urine Color Urine Appearance Urine pH (4.5-8.0) Ur Specific [place] (1.008-1.030) Urine Protein (NEGATIVE) mg/dL Urine Glucose (UA) (NEGATIVE) mg/dL Urine Ketones (NEGATIVE) mg/dL Urine Occult Blood (NEGATIVE) Urine Nitrite (NEGATIVE) Urine Bilirubin (NEGATIVE) Urine Urobilinogen (NORMAL) mg/dL Ur Leukocyte Esterase (NEGATIVE) Urine RBC (0-5) Urine WBC (0-5) Ur Epithelial Cells Amorphous Sediment Urine Bacteria Urine Mucus Med Orders - Current: Current Medications Acetaminophen (Tylenol) 650 mg PO Q4H PRN PRN Reason: Pain (Mild 1-3)/fever Apixaban (Eliquis) 5 mg PO BID [facility] Last Admin: 07/13/17 22:45 Dose: 5 mg Sodium Chloride (Normal Saline) 1,000 mls @ 75 mls/hr IV ASDIRECTED [facility] Last Admin: 07/13/17 22:30 Dose: 75 mls/hr Lorazepam (Ativan) 0.5 mg IV Q4H PRN PRN Reason: Nausea/Vomiting Meclizine HCl (Antivert) 25 mg PO Q6H PRN PRN Reason: vertigo Ondansetron HCl (Zofran Odt) 4 mg PO Q6H PRN PRN Reason: Nausea able to take PO Ondansetron HCl (Zofran) 4 mg IV Q6H PRN PRN Reason: Nausea/Vomiting Discontinued Medications Diphenhydramine HCl (Benadryl) 25 mg IVPUSH ONETIME ONE Stop: 07/13/17 16:30 Last Admin: 05/21/18 16:37 Dose: 25 mg Sodium Chloride (Normal Saline) 1,000 mls @ 125 mls/hr IV ASDIRECTED [facility] Last Admin: 07/13/17 15:26 Dose: 125 mls/hr Lorazepam (Ativan) 0.5 mg IVPUSH ONETIME ONE Stop: 07/13/17 15:14 Last Admin: 07/13/17 15:26 Dose: 0.5 mg Lorazepam (Ativan) 0.5 mg IVPUSH ONETIME ONE Stop: 07/13/17 18:37 Last Admin: 07/13/17 22:25 Dose: Not Given Ondansetron HCl (Zofran) 8 mg IVPUSH ONETIME ONE Stop: 07/13/17 16:03 Last Admin: 07/13/17 16:06 Dose: 8 mg - Exam Quality Assessment: Denies: Supplemental Oxygen General: Reports: Alert, Oriented, Cooperative, No Acute Distress HEENT: Reports: Other (both ear canals are clear) Neck: Reports: Supple Extremities: No Pedal Edema Neurological: Reports: Other (no nystagmus ) Psy/Mental Status: Reports: Alert, Normal Affect
== END 2017-07-14 11:15 | disposition home or self-care (01) ==
LOC: JP.ED 15:09 → JP.ICU 19:11
PROVIDERS: ADMIT Internal Medicine; ATTEND Internal Medicine
DX: R42 Dizziness and giddiness (principal); R11.2 Nausea with vomiting, unspecified; I27.82 Chronic pulmonary embolism; E78.00 Pure hypercholesterolemia, unspecified; M19.90 Unspecified osteoarthritis, unspecified site; M81.0 Age-related osteoporosis without current pathological fracture; Z79.899 Other long term (current) drug therapy; Z79.01 Long term (current) use of anticoagulants; Z88.0 Allergy status to penicillin; Z88.8 Allergy status to other drugs, medicaments and biological substances; Z91.040 Latex allergy status
CPT/HCPCS: 36415; 70450; 70551; 80053; 81001; 84484; 85025; 85027; 85651; 86140; 93005; 96361; 96374; 96375; 99284; 99285; A9270; J1200; J2060; J2405; J7030

== ENCOUNTER 2017-07-22 15:46 | Emergency (ER) | payer MEDICARE, MEDICAID ==
[2017-07-22] MEDS ORDERED: Lactated Ringers 1,000 ML IV ONE (16:23)
[2017-07-22] MEDS ORDERED: LORazepam 2 MG/ML SDV IVPUSH ONE (16:29)
[2017-07-22] MEDS ORDERED: diphenhydrAMINE 50 MG/ML SDV IVPUSH ONE (16:29)
--- NOTE | 2017-07-22 16:35 | EDM.PDOC ---
ED HPI GENERAL MEDICAL PROBLEM - General Chief Complaint: General Stated Complaint: NAUSEA/VOMITING Time Seen by Provider: 07/22/17 16:20 Source of Information: Reports: Patient, Old Records, RN History Limitations: Reports: No Limitations - History of Present Illness INITIAL COMMENTS - FREE TEXT/NARRATIVE: 87 yo female presents with an hour's duration of dizziness with nausea and vomiting that began when she bent over to plant some cota. Has been here several times for this and required overnight hospitalization last time. Had both a head CT scan and a brain MRI within the month that had only non-specific findings. She took meclizine before coming in today without benefit. Has been to PT for this, but they apparently could not induce dizziness in her that day. Has no diarrhea or hematemesis with this episode. No fever or MCQUEEN. Onset: Today Onset Date: 07/22/17 Onset Time: 15:00 Duration: Hour(s): (1), Constant Location: Reports: Head Quality: Reports: Other (no pain) Severity: Moderate Improves with: Reports: Rest Worsens with: Reports: Movement Context: Reports: Other (Hx of chronic, recurrent dizziness.) Associated Symptoms: Reports: Nausea/Vomiting Treatments SR. LOGISTICS ANALYST: Reports: Other (see below) (meclizine orally without benefit) - Related Data Allergies Allergy/AdvReac Type Severity Reaction Status Date / Time Penicillins Allergy Severe Anaphylactic Verified 07/13/17 15:11 Shock cefdinir Allergy Intermediate Rash Verified 07/13/17 15:11 Latex, Natural Rubber Allergy Rash Verified 07/13/17 15:11 erythromycin base AdvReac Nausea and Verified 07/13/17 15:11 [Erythromycin Base] Vomiting Home Meds: Home Meds Calcium Carbonate/Vitamin D3 [Calcium 600-Vit D3 200 Tablet] 1 cap PO BID [History] [place]-3 Fatty Acids [[place]-3] 1,000 mg PO DAILY 02/22/14 [History] Cholecalciferol (Vitamin D3) [Vitamin D3] 1,000 unit PO DAILY 03/03/17 [History] Ondansetron [Ondansetron ODT] 4 mg PO ASDIRECTED PRN 03/03/17 [History] Apixaban [Eliquis] 5 mg PO BID 03/17/17 [History] Multivitamin [Gummi Bear Multivitamin] 2 tab PO DAILY 03/17/17 [History] Meclizine [Antivert] 25 mg PO Q6H PRN #30 tab 07/14/17 [Rx] Past Medical History HEENT History: Reports: Cataract, Sinusitis Cardiovascular History: Reports: Blood Clots/VTE/DVT, High Cholesterol Respiratory History: Reports: Bronchitis, Recurrent, Pneumonia, Recurrent Other Gastrointestinal History: CURRENT UTI DX Genitourinary History: Reports: UTI, Recurrent 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 Dermatologic History: Reports: Urticaria Other Dermatologic History: Herpes Zoster - Infectious Disease History Infectious Disease History: Reports: Chicken Pox, Measles, Mumps, Shingles - Past Surgical History HEENT Surgical History: Reports: Cataract Surgery, Other (See Below) Oncologic Surgical History: Reports: Other (See Below) Social & Family History - Family History Family Medical History: Unobtainable - Tobacco Use Smoking Status *Q: Never Smoker - Caffeine Use Caffeine Use: Reports: Coffee - Recreational Drug Use Recreational Drug Use: No ED ROS GENERAL - Review of Systems Review Of Systems: See Below Constitutional: Reports: Malaise, Weakness HEENT: Reports: No Symptoms. Denies: Vertigo Respiratory: Reports: No Symptoms Cardiovascular: Reports: No Symptoms Endocrine: Reports: No Symptoms GI/Abdominal: Reports: Nausea, Vomiting. Denies: Black Stool, Constipation, Diarrhea, Hematemesis, Hematochezia, Melena : Reports: No Symptoms Musculoskeletal: Reports: No Symptoms Skin: Reports: No Symptoms Neurological: Reports: Dizziness. Denies: Headache ED EXAM, GENERAL - Physical Exam Exam: See Below Exam Limited By: No Limitations General Appearance: Alert, WD/WN, Mild Distress Eye Exam: Bilateral Eye: Normal Inspection, PERRL Ears: Normal External Exam, Normal Canal, Hearing Grossly Normal, Normal TMs Ear Exam: Bilateral Ear: Auricle Normal, Canal Normal, TM normal Nose: Normal Inspection, Normal Mucosa, No Blood Throat/Mouth: Normal Inspection, Normal Lips, Normal Oropharynx, Normal Voice, No Airway Compromise Head: Atraumatic, Normocephalic Neck: Normal Inspection, Supple, Non-Tender Respiratory/Chest: No Respiratory Distress, Lungs Clear, Normal Breath Sounds, No Accessory Muscle Use Cardiovascular: Regular Rate, Rhythm, No Edema GI/Abdominal: Normal Bowel Sounds, Soft, Non-Tender, No Distention Extremities: Normal Inspection, Normal Range of Motion, Non-Tender, No Pedal Edema Neurological: Alert, Oriented, CN II-XII Intact, Normal Cognition, No Motor/ Sensory Deficits Psychiatric: Normal Affect, Normal Mood Skin Exam: Warm, Dry, Intact, Normal Color, No Rash Course - Vital Signs Text/Narrative:: Feeling improved after treatment, wants to go home. Encouraged a family member to stay with her tonight. Has more meclizine. Last Recorded V/S: Last Vital Signs Temp 35.9 C 07/22/17 15:55 Pulse 73 07/22/17 17:53 Resp 14 07/22/17 17:53 BP 142/79 H 07/22/17 17:53 Pulse Ox 98 07/22/17 17:53 - Orders/Labs/Meds Meds: Medications Discontinued Medications Generic Name Dose Route Start Last Admin Trade Name Don PRN Reason Stop Dose Admin Diphenhydramine HCl 25 mg 07/22/17 16:29 07/22/17 16:48 Benadryl IVPUSH 07/22/17 16:30 25 mg ONETIME ONE Administration Lactated Ringer's 1,000 mls @ 1,000 mls/hr 07/22/17 16:23 07/22/17 16:39 Ringers, Lactated IV 07/22/17 17:22 1,000 mls/hr BOLUS ONE Administration Lorazepam 1 mg 07/22/17 16:29 07/22/17 16:45 Ativan IVPUSH 07/22/17 16:30 1 mg ONETIME ONE Administration Departure - Departure Time of Disposition: 18:25 Disposition: Home, Self-Care 01 Condition: Fair Clinical Impression: Vertigo Nausea and vomiting Qualifiers: Vomiting type: unspecified Vomiting Intractability: intractable Qualified Code( s): R11.2 - Nausea with vomiting, unspecified - Discharge Information Referrals: PCP,None [Primary Care Provider] - Forms: ED Department Discharge
[2017-07-22 17:54] VITALS: BP 142/79
== END 2017-07-22 19:28 | disposition home or self-care (01) ==
LOC: JP.ED 15:46
DX: R42 Dizziness and giddiness (principal); R11.2 Nausea with vomiting, unspecified; E78.00 Pure hypercholesterolemia, unspecified; Z79.899 Other long term (current) drug therapy; Z88.0 Allergy status to penicillin; Z91.040 Latex allergy status; Z88.1 Allergy status to other antibiotic agents
CPT/HCPCS: 96374; 96375; 99284; J1200; J2060; J7120

== ENCOUNTER 2017-08-03 22:36 | Emergency (ER) | payer MEDICARE, MEDICAID ==
[2017-08-03 23:00] VITALS: BP 137/69
[2017-08-03] MEDS ORDERED: Lactated Ringers 1,000 ML IV ONE (23:36)
[2017-08-03] MEDS ORDERED: diphenhydrAMINE 50 MG/ML SDV IVPUSH ONE (23:41)
[2017-08-03] MEDS ORDERED: LORazepam 2 MG/ML SDV IVPUSH ONE (23:42)
--- NOTE | 2017-08-03 23:47 | EDM.PDOC ---
ED HPI GENERAL MEDICAL PROBLEM - General Chief Complaint: General Stated Complaint: MED[facility] Time Seen by Provider: 08/03/17 23:35 Source of Information: Reports: Patient, Old Records History Limitations: Reports: No Limitations - History of Present Illness INITIAL COMMENTS - FREE TEXT/NARRATIVE: 87 yo female presents with an exacerbation of her chronic vertigo. Sx's began about 7 pm tonight and were associated with vomiting. Took a nausea medicine and meclizine without benefit. Lives alone with her daughter right next door. EMS transported tonight. No blood in her emesis. Onset: Today Onset Date: 08/03/17 Onset Time: 19:00 Duration: Hour(s): Location: Reports: Head, Generalized Quality: Reports: Other (no pain) Severity: Moderate Improves with: Reports: None Worsens with: Reports: Other (unknown, ? turning her head or changing head position. ) Context: Reports: Other (Hx of chronic, recurring vertigo.) Associated Symptoms: Reports: Nausea/Vomiting. Denies: Syncope Treatments WHEELCHAIR RENTAL CLERK: Reports: Other (see below) Other Treatments WHEELCHAIR RENTAL CLERK: Benadryl 25mg ivp Denies Pain Score (Numeric/FACES): 0 - Related Data Allergies Allergy/AdvReac Type Severity Reaction Status Date / Time Penicillins Allergy Severe Anaphylactic Verified 08/03/17 23:22 Shock cefdinir Allergy Intermediate Rash Verified 08/03/17 23:22 Latex, Natural Rubber Allergy Rash Verified 08/03/17 23:22 erythromycin base AdvReac Nausea and Verified 08/03/17 23:22 [Erythromycin Base] Vomiting Home Meds: Home Meds Calcium Carbonate/Vitamin D3 [Calcium 600-Vit D3 200 Tablet] 1 cap PO BID [History] [place]-3 Fatty Acids [[place]-3] 1,000 mg PO DAILY 02/22/14 [History] Cholecalciferol (Vitamin D3) [Vitamin D3] 1,000 unit PO DAILY 03/03/17 [History] Ondansetron [Ondansetron ODT] 4 mg PO ASDIRECTED PRN 03/03/17 [History] Apixaban [Eliquis] 5 mg PO BID 03/17/17 [History] Multivitamin [Gummi Bear Multivitamin] 2 tab PO DAILY 03/17/17 [History] Meclizine [Antivert] 25 mg PO Q6H PRN #30 tab 07/14/17 [Rx] Past Medical History HEENT History: Reports: Cataract, Sinusitis Cardiovascular History: Reports: Blood Clots/VTE/DVT, High Cholesterol Respiratory History: Reports: Bronchitis, Recurrent, Pneumonia, Recurrent Other Gastrointestinal History: CURRENT UTI DX Genitourinary History: Reports: UTI, Recurrent 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 Dermatologic History: Reports: Urticaria Other Dermatologic History: Herpes Zoster - Infectious Disease History Infectious Disease History: Reports: Chicken Pox, Measles, Mumps, Shingles - Past Surgical History HEENT Surgical History: Reports: Cataract Surgery, Other (See Below) Oncologic Surgical History: Reports: Other (See Below) Social & Family History - Family History Family Medical History: Unobtainable - Caffeine Use Caffeine Use: Reports: Coffee ED ROS GENERAL - Review of Systems Review Of Systems: See Below Constitutional: Reports: No Symptoms HEENT: Reports: No Symptoms Respiratory: Reports: No Symptoms Cardiovascular: Reports: No Symptoms GI/Abdominal: Reports: Nausea, Vomiting. Denies: Black Stool, Bloody Stool, Diarrhea, Hematemesis, Hematochezia, Melena : Reports: No Symptoms Musculoskeletal: Reports: No Symptoms Skin: Reports: No Symptoms Neurological: Reports: Dizziness Psychiatric: Reports: No Symptoms ED EXAM, GENERAL - Physical Exam Exam: See Below Exam Limited By: No Limitations General Appearance: Alert, WD/WN, No Apparent Distress Eye Exam: Bilateral Eye: Nystagmus, PERRL Ears: Normal External Exam, Normal Canal, Hearing Grossly Normal Ear Exam: Bilateral Ear: Auricle Normal, Canal Normal Nose: Normal Inspection, Normal Mucosa, No Blood Throat/Mouth: Normal Inspection, Normal Lips, Normal Oropharynx, Normal Voice, No Airway Compromise Head: Atraumatic, Normocephalic Neck: Normal Inspection Respiratory/Chest: No Respiratory Distress, Lungs Clear, Normal Breath Sounds, No Accessory Muscle Use Cardiovascular: Regular Rate, Rhythm, No Edema GI/Abdominal: Normal Bowel Sounds, Soft, Non-Tender, No Distention Extremities: Normal Inspection, Normal Range of Motion, Non-Tender, No Pedal Edema Neurological: Alert, Oriented, CN II-XII Intact, Normal Cognition, No Motor/ Sensory Deficits Psychiatric: Normal Affect, Normal Mood Skin Exam: Warm, Dry, Intact, Normal Color, No Rash Lymphatic: No Adenopathy Course - Vital Signs Text/Narrative:: Better after treatment, able to walk to the bathroom without assistance. Last Recorded V/S: Last Vital Signs Temp 35.4 C 08/03/17 23:21 Pulse 77 08/03/17 23:21 Resp 14 08/03/17 23:21 BP 137/69 08/03/17 23:21 Pulse Ox 92 L 08/03/17 23:21 - Orders/Labs/Meds Labs: Laboratory Tests 08/03/17 Range/Units 23:48 Sodium 139 L (140-148) mmol/L Potassium 3.7 (3.6-5.2) mmol/L Chloride 104 (100-108) mmol/L Carbon Dioxide 28 (21-32) mmol/L Anion Gap 10.7 (5.0-14.0) mmol/L BUN 21 H (7-18) mg/dL Creatinine 0.9 (0.6-1.0) mg/dL Est Cr Clr Drug Dosing 38.03 mL/min Estimated GFR (MDRD) 59 L (>60) Glucose 116 H (74-106) mg/dL Calcium 8.6 (8.5-10.1) mg/dL Meds: Medications Discontinued Medications Generic Name Dose Route Start Last Admin Trade Name Freq PRN Reason Stop Dose Admin Diphenhydramine HCl 25 mg 08/03/17 23:41 08/04/17 00:07 Benadryl IVPUSH 08/04/17 00:01 Not Given ONETIME ONE Lactated Ringer's 1,000 mls @ 1,000 mls/hr 08/03/17 23:36 08/04/17 00:04 Ringers, Lactated IV 08/04/17 00:35 1,000 mls/hr BOLUS ONE Administration Lorazepam 1 mg 08/03/17 23:42 08/04/17 00:08 Ativan IVPUSH 08/03/17 23:43 1 mg ONETIME ONE Administration Departure - Departure Time of Disposition: 05:05 Disposition: Home, Self-Care 01 Condition: Good Clinical Impression: Vertigo Nausea and vomiting Qualifiers: Vomiting type: unspecified Vomiting Intractability: intractable Qualified Code( s): R11.2 - Nausea with vomiting, unspecified - Discharge Information Referrals: PCP,None [Primary Care Provider] - Forms: ED Department Discharge
== END 2017-08-04 10:06 | disposition home or self-care (01) ==
LOC: JP.ED 22:36
DX: R42 Dizziness and giddiness (principal); R11.2 Nausea with vomiting, unspecified; E78.00 Pure hypercholesterolemia, unspecified; Z88.0 Allergy status to penicillin; Z91.040 Latex allergy status; Z88.1 Allergy status to other antibiotic agents; Z79.899 Other long term (current) drug therapy
CPT/HCPCS: 36415; 80048; 96361; 96374; 99284; J2060; J7120

== ENCOUNTER 2017-08-07 19:56 | Emergency (ER) | payer MEDICARE, MEDICAID ==
[2017-08-07 21:09] VITALS: BP 178/76
--- NOTE | 2017-08-07 21:32 | EDM.PDOC ---
ED HPI GENERAL MEDICAL PROBLEM - General Chief Complaint: Bite:Animal, Insect Stated Complaint: WOODTICK BITE/LEFT LEG Time Seen by Provider: 08/07/17 21:20 Source of Information: Reports: Patient, Old Records History Limitations: Reports: No Limitations - History of Present Illness INITIAL COMMENTS - FREE TEXT/NARRATIVE: Pulled a deer tick off L medial leg today. It was not engorged. Just finished a 10 d course of doxycycline for sinusitis. 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: Other (see below) (took tick off) - Related Data Allergies Allergy/AdvReac Type Severity Reaction Status Date / Time Penicillins Allergy Severe Anaphylactic Verified 08/07/17 21:00 Shock cefdinir Allergy Intermediate Rash Verified 08/07/17 21:00 Latex, Natural Rubber Allergy Rash Verified 08/07/17 21:00 erythromycin base AdvReac Nausea and Verified 08/07/17 21:00 [Erythromycin Base] Vomiting Home Meds: Home Meds Calcium Carbonate/Vitamin D3 [Calcium 600-Vit D3 200 Tablet] 1 cap PO BID [History] [place]-3 Fatty Acids [[place]-3] 1,000 mg PO DAILY 02/22/14 [History] Cholecalciferol (Vitamin D3) [Vitamin D3] 1,000 unit PO DAILY 03/03/17 [History] Ondansetron [Ondansetron ODT] 4 mg PO ASDIRECTED PRN 03/03/17 [History] Apixaban [Eliquis] 5 mg PO BID 03/17/17 [History] Multivitamin [Gummi Bear Multivitamin] 2 tab PO DAILY 03/17/17 [History] Meclizine [Antivert] 25 mg PO Q6H PRN #30 tab 07/14/17 [Rx] Past Medical History HEENT History: Reports: Cataract, Sinusitis Cardiovascular History: Reports: Blood Clots/VTE/DVT, High Cholesterol Respiratory History: Reports: Bronchitis, Recurrent, Pneumonia, Recurrent Other Gastrointestinal History: CURRENT UTI DX Genitourinary History: Reports: UTI, Recurrent 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 Dermatologic History: Reports: Urticaria Other Dermatologic History: Herpes Zoster - Infectious Disease History Infectious Disease History: Reports: Chicken Pox, Measles, Mumps, Shingles - Past Surgical History HEENT Surgical History: Reports: Cataract Surgery, Other (See Below) Oncologic Surgical History: Reports: Other (See Below) Social & Family History - Family History Family Medical History: Unobtainable - Tobacco Use Smoking Status *Q: Never Smoker Second Hand Smoke Exposure: No - Caffeine Use Caffeine Use: Reports: Coffee - Recreational Drug Use Recreational Drug Use: No ED ROS GENERAL - Review of Systems Review Of Systems: See Below Constitutional: Reports: No Symptoms HEENT: Reports: No Symptoms Skin: Reports: Erythema (at tick bite site.) Neurological: Reports: No Symptoms ED EXAM, ANIMAL BITE - Physical Exam Exam: See Below Exam Limited By: No Limitations General Appearance: Alert, WD/WN, No Apparent Distress Skin Exam: Other (erythema at site of attachment, tick removed prior to arrival. ) Lymphadenopathy: Bilateral: No Adenopathy Course - Vital Signs Last Recorded V/S: Last Vital Signs Temp 36.5 C 08/07/17 21:02 Pulse 84 08/07/17 21:02 Resp 14 08/07/17 21:02 BP 178/76 H 08/07/17 21:02 Pulse Ox 95 08/07/17 21:02 Departure - Departure Time of Disposition: 21:35 Disposition: Home, Self-Care 01 Condition: Good Clinical Impression: Tick bite of calf Qualifiers: Encounter type: initial encounter Laterality: left Qualified Code(s): S80.862A - Insect bite (nonvenomous), left lower leg, initial encounter; W57.XXXA - Bitten or stung by nonvenomous insect and other nonvenomous arthropods, initial encounter - Discharge Information Referrals: Madeleine Carrera MD [Primary Care Provider] - Forms: ED Department Discharge
== END 2017-08-07 21:35 | disposition home or self-care (01) ==
LOC: JP.ED 19:56
DX: S80.862A Insect bite (nonvenomous), left lower leg, initial encounter (principal); E78.00 Pure hypercholesterolemia, unspecified; Z91.040 Latex allergy status; Z88.1 Allergy status to other antibiotic agents; Z88.0 Allergy status to penicillin; Z79.899 Other long term (current) drug therapy; W57.XXXA Bitten or stung by nonvenomous insect and other nonvenomous arthropods, initial encounter
CPT/HCPCS: 99281; 99283

== ENCOUNTER 2017-10-15 23:14 | Emergency (ER) | payer MEDICARE, MEDICAID ==
[2017-10-16] MEDS ORDERED: Ondansetron 4 MG/2 ML SDV IVPUSH ONE (00:04)
[2017-10-16] MEDS ORDERED: Ondansetron 4 MG/2 ML SDV ONE (00:11)
[2017-10-16] MEDS ORDERED: Sodium Chloride 0.9% 1,000 ML IV SCH (00:15)
[2017-10-16] MEDS ORDERED: LORazepam 2 MG/ML SDV IVPUSH ONE (00:45)
[2017-10-16] MEDS ORDERED: LORazepam 2 MG/ML SDV ONE (00:58)
--- NOTE | 2017-10-16 00:59 | EDM.PDOC ---
ED HPI GENERAL MEDICAL PROBLEM - General Chief Complaint: Neurological Problem Stated Complaint: POSSIBLE VERTIGO Time Seen by Provider: 10/15/17 23:48 Source of Information: Reports: Patient History Limitations: Reports: No Limitations - History of Present Illness INITIAL COMMENTS - FREE TEXT/NARRATIVE: Vertigo: This is a 87-year-old female presents emergency room with complaints of sudden onset of vertigo when she went to lay down for bed. She says this is similar to all previous episodes of vertigo, she has medication for this, she took one Zofran but didn't help relieve the nausea and vomiting. Her last attack was 3 days ago. Since the start of 2018, she has had 3 CT scans and one MRI which while benign negative for acute process. She is requesting fluids and nausea control. 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: Other (see below) - Related Data Allergies Allergy/AdvReac Type Severity Reaction Status Date / Time Penicillins Allergy Severe Anaphylactic Verified 10/16/17 00:49 Shock cefdinir Allergy Intermediate Rash Verified 10/16/17 00:49 Latex, Natural Rubber Allergy Rash Verified 10/16/17 00:49 erythromycin base AdvReac Nausea and Verified 10/16/17 00:49 [Erythromycin Base] Vomiting Home Meds: Home Meds Calcium Carbonate/Vitamin D3 [Calcium 600-Vit D3 200 Tablet] 1 cap PO BID [History] [place]-3 Fatty Acids [[place]-3] 1,000 mg PO DAILY 02/22/14 [History] Cholecalciferol (Vitamin D3) [Vitamin D3] 1,000 unit PO DAILY 03/03/17 [History] Ondansetron [Ondansetron ODT] 4 mg PO ASDIRECTED PRN 03/03/17 [History] Apixaban [Eliquis] 5 mg PO BID 03/17/17 [History] Multivitamin [Gummi Bear Multivitamin] 2 tab PO DAILY 03/17/17 [History] Meclizine [Antivert] 25 mg PO Q6H PRN #30 tab 07/14/17 [Rx] Past Medical History HEENT History: Reports: Cataract, Sinusitis Cardiovascular History: Reports: Blood Clots/VTE/DVT, High Cholesterol Respiratory History: Reports: Bronchitis, Recurrent, Pneumonia, Recurrent Gastrointestinal History: Reports: Other (See Below) Other Gastrointestinal History: CURRENT UTI DX Genitourinary History: Reports: UTI, 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 Dermatologic History: Reports: Urticaria, Other (See Below) Other Dermatologic History: Herpes Zoster - Infectious Disease History Infectious Disease History: Reports: Chicken Pox, Measles, Mumps, Shingles - Past Surgical History HEENT Surgical History: Reports: Cataract Surgery, Other (See Below) Oncologic Surgical History: Reports: Other (See Below) Social & Family History - Family History Family Medical History: Unobtainable - Tobacco Use Smoking Status *Q: Never Smoker - Caffeine Use Caffeine Use: Reports: Coffee - Recreational Drug Use Recreational Drug Use: No - Living Situation & Occupation Living situation: Reports: Alone (Lives alone in [place].) ED ROS ENT - Review of Systems Review Of Systems: See Below Constitutional: Reports: Fatigue, Other (Nausea vomiting) HEENT: Reports: No Symptoms Respiratory: Reports: No Symptoms Endocrine: Reports: No Symptoms GI/Abdominal: Reports: Nausea, Vomiting : Reports: No Symptoms Musculoskeletal: Reports: No Symptoms Skin: Reports: No Symptoms Neurological: Reports: Dizziness Psychiatric: Reports: No Symptoms Hematologic/Lymphatic: Reports: No Symptoms Immunologic: Reports: No Symptoms ED EXAM, ENT - Physical Exam Exam: See Below Exam Limited By: Other (Patient is actively vomiting during exam\) General Appearance: Alert, WD/WN, Moderate Distress, Thin Eye Exam: Right Eye: Abnormal EOM (Nystatin this bilateral), Bilateral Eye: Nystagmus, PERRL Ears: Normal External Exam, Normal Canal, Hearing Grossly Normal, Normal TMs Nose: Normal Inspection Mouth/Throat: Normal Inspection Head: Atraumatic, Normocephalic Neck: Normal Inspection, Supple, Non-Tender, Full Range of Motion Respiratory/Chest: No Respiratory Distress, Lungs Clear, Normal Breath Sounds, No Accessory Muscle Use, Chest Non-Tender Cardiovascular: Normal Peripheral Pulses, Regular Rate, Rhythm, No Murmur GI/Abdominal: Normal Bowel Sounds, Soft, Non-Tender Back: Normal Inspection, Full Range of Motion Extremities: Normal Inspection, Normal Range of Motion, Non-Tender, No Pedal Edema, Normal Capillary Refill Neurological: No Motor/Sensory Deficits Psychiatric: Normal Affect, Normal Mood Skin: Warm, Dry, Intact, Normal Color, No Rash Lymphatic: No Adenopathy Course - Vital Signs Last Recorded V/S: Last Vital Signs Temp 34.7 C L 10/16/17 01:27 Pulse 74 10/16/17 01:27 Resp 14 10/16/17 01:27 BP 122/67 10/16/17 01:27 Pulse Ox 96 10/16/17 01:27 - Orders/Labs/Meds Labs: Laboratory Tests 10/16/17 10/16/17 10/16/17 Range/Units 00:05 00:05 00:05 WBC 6.0 (4.5-11.0) K/uL RBC 4.55 (3.30-5.50) M/uL Hgb 13.8 (12.0-15.0) g/dL Hct 43.1 (36.0-48.0) % MCV 95 (80-98) fL MCH 30 (27-31) pg MCHC 32 (32-36) % Plt Count 179 (150-400) K/uL Neut % (Auto) 51 (36-66) % Lymph % (Auto) 36 (24-44) % [place] % (Auto) 10 H (2-6) % Eos % (Auto) 3 (2-4) % Baso % (Auto) 1 (0-1) % Sodium 141 (140-148) mmol/L Potassium 3.9 (3.6-5.2) mmol/L Chloride 106 (100-108) mmol/L Carbon Dioxide 26 (21-32) mmol/L Anion Gap 8.8 (5.0-14.0) mmol/L BUN 17 (7-18) mg/dL Creatinine 1.0 (0.6-1.0) mg/dL Est Cr Clr Drug Dosing 34.06 mL/min Estimated GFR (MDRD) 52 L (>60) Glucose 147 H (74-106) mg/dL Calcium 9.1 (8.5-10.1) mg/dL Total Bilirubin 0.5 (0.2-1.0) mg/dL AST 20 (15-37) U/L ALT 17 (12-78) U/L Alkaline Phosphatase 45 L (46-116) U/L Troponin I < 0.017 (0.000-0.056) ng/mL Total Protein 6.6 (6.4-8.2) g/dL Albumin 3.1 L (3.4-5.0) g/dL Globulin 3.5 (2.3-3.5) g/dL Albumin/Globulin Ratio 0.9 L (1.2-2.2) Amylase 89 D (25-115) U/L Lipase 426 H (73-393) U/L Meds: Medications Discontinued Medications Generic Name Dose Route Start Last Admin Trade Name Freq PRN Reason Stop Dose Admin Sodium Chloride 1,000 mls @ 500 mls/hr 10/16/17 00:15 10/16/17 00:46 Normal Saline IV 999 mls/hr ASDIRECTED CALDERON Administration Lorazepam 1 mg 10/16/17 00:45 10/16/17 01:03 Ativan IVPUSH 10/16/17 00:46 1 mg ONETIME ONE Administration Lorazepam Confirm 10/16/17 00:58 Ativan Administered 10/16/17 00:59 Dose 2 mg .ROUTE .STK-MED ONE Ondansetron HCl 4 mg 10/16/17 00:04 10/16/17 00:15 Zofran IVPUSH 10/16/17 00:05 4 mg ONETIME ONE Administration Ondansetron HCl Confirm 10/16/17 00:11 Zofran Administered 10/16/17 00:12 Dose 4 mg .ROUTE .STK-MED ONE - Re-Assessments/Exams Free Text/Narrative Re-Assessment/Exam: 10/16/17 01:00 Discussed with patient will do labs and imaging. Patient declines any a CT scan at this time would like to see if the vertigo resolves before any further testing. She will accept IV fluids and medications would like to stay few hours and will be discharged to home with her daughter who is here with her this evening. Labs troponin less than 0.017, EKG normal sinus rhythm, chemistries normal range , CBC within normal range, slight elevation of amylase 426 and lipase normal IV fluids normal saline, Zofran 4 mg IV, lorazepam 1 mg IV. Departure - Departure Time of Disposition: 03:15 Disposition: Home, Self-Care 01 Condition: Good Clinical Impression: Vertigo - Discharge Information *COPY OF PRESCRIPTION DRUG MONITORING REPORT IN PATIENT BROOKE: Not Applicable Instructions: Vertigo, [id number] Referrals: PCP,None [Primary Care Provider] - Forms: ED Department Discharge Care Plan Goals: Vertigo -Take medications as prescribed -Push fluids, rest, take medications as directed Follow-up with primary care for recheck Return to clinic, Urgent care, or ER., If has return of symptoms or worsening - Problem List & Annotations (1) Vertigo SNOMED Code(s): 876319042 Code(s): R42 - DIZZINESS AND GIDDINESS Status: Acute Priority: High - Problem List Review Problem List Initiated/Reviewed/Updated: Yes - Assessment/Plan Plan: Vertigo -Take medications as prescribed -Push fluids, rest, take medications as directed Follow-up with primary care for recheck Return to clinic, Urgent care, or ER., If has return of symptoms or worsening
[2017-10-16 01:30] VITALS: BP 122/67
== END 2017-10-16 03:15 | disposition home or self-care (01) ==
LOC: JP.ED 23:14
DX: R42 Dizziness and giddiness (principal); Z88.0 Allergy status to penicillin; Z88.8 Allergy status to other drugs, medicaments and biological substances; Z91.040 Latex allergy status; Z88.1 Allergy status to other antibiotic agents
CPT/HCPCS: 36415; 80053; 82150; 83690; 84484; 85025; 93005; 96361; 96374; 96375; 99284; J2060; J2405; J7030

== ENCOUNTER 2017-11-16 08:11 | Emergency (ER) | payer MEDICARE, MEDICAID ==
[2017-11-16 08:47] VITALS: BP 120/75
--- NOTE | 2017-11-16 09:10 | EDM.PDOC ---
ED HPI GENERAL MEDICAL PROBLEM - General Chief Complaint: Neurological Problem Stated Complaint: VERTIGO Time Seen by Provider: 11/16/17 08:55 Source of Information: Reports: Patient, Family History Limitations: Reports: No Limitations - History of Present Illness INITIAL COMMENTS - FREE TEXT/NARRATIVE: 87-year-old female with chronic recurring vertigo that usually is controlled his neck is living developed an episode this morning that was more persistent than usual, she had an episode of vomiting so was brought in. She took an extra meclizine after the first dose did not work after 20 minutes. Now that she is at the hospital she feels back to baseline and wished she didn't come in. She has no fever or chills, no headache. She took some water with her second dose and has not vomited. Denies Pain Score (Numeric/FACES): 0 - Related Data Allergies Allergy/AdvReac Type Severity Reaction Status Date / Time Penicillins Allergy Severe Anaphylactic Verified 11/16/17 08:38 Shock cefdinir Allergy Intermediate Rash Verified 11/16/17 08:38 Latex, Natural Rubber Allergy Rash Verified 11/16/17 08:38 erythromycin base AdvReac Nausea and Verified 11/16/17 08:38 [Erythromycin Base] Vomiting Home Meds: Home Meds Calcium Carbonate/Vitamin D3 [Calcium 600-Vit D3 200 Tablet] 1 cap PO BID [History] [place]-3 Fatty Acids [[place]-3] 1,000 mg PO DAILY 02/22/14 [History] Cholecalciferol (Vitamin D3) [Vitamin D3] 1,000 unit PO DAILY 03/03/17 [History] Ondansetron [Ondansetron ODT] 4 mg PO ASDIRECTED PRN 03/03/17 [History] Multivitamin [Gummi Bear Multivitamin] 2 tab PO DAILY 03/17/17 [History] Meclizine [Antivert] 25 mg PO Q6H PRN #30 tab 07/14/17 [Rx] Past Medical History HEENT History: Reports: Cataract, Sinusitis Cardiovascular History: Reports: Blood Clots/VTE/DVT, High Cholesterol Respiratory History: Reports: Bronchitis, Recurrent, Pneumonia, Recurrent Gastrointestinal History: Reports: Other (See Below) Other Gastrointestinal History: CURRENT UTI DX Genitourinary History: Reports: UTI, Recurrent 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 Dermatologic History: Reports: Urticaria, Other (See Below) Other Dermatologic History: Herpes Zoster - Infectious Disease History Infectious Disease History: Reports: Chicken Pox, Measles, Mumps, Shingles - Past Surgical History HEENT Surgical History: Reports: Cataract Surgery, Other (See Below) Female Surgical History: Reports: D&C Oncologic Surgical History: Reports: Lumpectomy Social & Family History - Family History Family Medical History: Unobtainable - Tobacco Use Smoking Status *Q: Never Smoker - Caffeine Use Caffeine Use: Reports: Coffee, Tea - Recreational Drug Use Recreational Drug Use: No - Living Situation & Occupation Living situation: Reports: Alone (Lives alone in [place].) ED ROS GENERAL - Review of Systems Review Of Systems: See Below Constitutional: Reports: Malaise. Denies: Fever, Chills HEENT: Denies: Ear Pain Respiratory: Denies: Shortness of Breath Cardiovascular: Denies: Chest Pain, Palpitations GI/Abdominal: Reports: Nausea, Vomiting. Denies: Abdominal Pain Neurological: Reports: Dizziness. Denies: Headache ED EXAM, DIZZINESS - Physical Exam Exam: See Below Exam Limited By: No Limitations General Appearance: Alert, No Apparent Distress Eye Exam: Bilateral Eye: EOMI (Good hydration) Throat/Mouth: Normal Inspection Head Exam: Atraumatic Respiratory/Chest: No Respiratory Distress Cardiovascular: Regular Rate, Rhythm Neurological: Alert, Normal Mood/Affect, Oriented x 3 Extremities: No: Pedal Edema Psychiatric: Normal Affect, Normal Mood Course - Vital Signs Last Recorded V/S: Last Vital Signs Temp 96.4 F 11/16/17 08:46 Pulse 77 11/16/17 08:46 Resp 16 11/16/17 08:46 BP 120/75 11/16/17 08:46 Pulse Ox 93 L 11/16/17 08:46 - Re-Assessments/Exams Free Text/Narrative Re-Assessment/Exam: 11/16/17 09:09 After discussing her improvement with the patient and daughter, they did want to just be discharged and will return if worsening. Departure - Departure Time of Disposition: 09:25 Disposition: Home, Self-Care 01 Condition: Good, Undetermined Clinical Impression: Vertigo - Discharge Information Instructions: Vertigo, [id number] Referrals: Madeleine Carrera MD [Primary Care Provider] - Forms: ED Department Discharge Care Plan Goals: Continue your current medications, increase activity and diet as tolerated. Concentrate on remaining hydrated by drinking water. Return if worsening at any time.
== END 2017-11-16 09:25 | disposition home or self-care (01) ==
LOC: JP.ED 08:11
DX: R42 Dizziness and giddiness (principal); E78.00 Pure hypercholesterolemia, unspecified; Z88.0 Allergy status to penicillin; Z91.040 Latex allergy status; Z88.1 Allergy status to other antibiotic agents; Z79.899 Other long term (current) drug therapy
CPT/HCPCS: 99282; 99284

== ENCOUNTER 2018-03-31 09:35 | Emergency (ER) | payer MEDICARE, MEDICAID ==
[2018-03-31 10:08] VITALS: BP 104/67
[2018-03-31] MEDS ORDERED: Albuterol/Ipratropium 3.0-0.5 MG/3 ML Neb Soln NEB ONE (10:16)
--- NOTE | 2018-03-31 10:20 | EDM.PDOC ---
ED HPI GENERAL MEDICAL PROBLEM - General Chief Complaint: General Stated Complaint: WEAKNESS Time Seen by Provider: 03/31/18 10:09 Source of Information: Reports: Patient, Family, RN Notes Reviewed History Limitations: Reports: No Limitations - History of Present Illness INITIAL COMMENTS - FREE TEXT/NARRATIVE: 88-year-old female presents to the emergency department today complaint of weakness, she states she's only been ill for 2 days was evaluated in the clinic 48 hours ago started on antibiotics of levofloxacin of which she's taken 2 doses , was told she has pneumonia. She complains of shortness of breath and sore throat, no cough no sputum no fever no problem or GI symptomology is no chest pain, states she did receive a flu shot this year - Related Data Allergies Allergy/AdvReac Type Severity Reaction Status Date / Time Penicillins Allergy Severe Anaphylactic Verified 03/31/18 09:50 Shock cefdinir Allergy Intermediate Rash Verified 03/31/18 09:50 Latex, Natural Rubber Allergy Rash Verified 03/31/18 09:50 erythromycin base AdvReac Nausea and Verified 03/31/18 09:50 [Erythromycin Base] Vomiting sulfamethoxazole AdvReac Vomiting Verified 03/31/18 10:16 [From Bactrim] trimethoprim [From Bactrim] AdvReac Vomiting Verified 03/31/18 10:16 Home Meds: Home Meds Calcium Carbonate/Vitamin D3 [Calcium 600-Vit D3 200 Tablet] 1 cap PO BID [History] [place]-3 Fatty Acids [[place]-3] 1,000 mg PO DAILY 02/22/14 [History] Cholecalciferol (Vitamin D3) [Vitamin D3] 1,000 unit PO DAILY 03/03/17 [History] Multivitamin [Gummi Bear Multivitamin] 2 tab PO DAILY 03/17/17 [History] Meclizine [Antivert] 25 mg PO Q6H PRN #30 tab 07/14/17 [Rx] Levofloxacin 500 mg PO DAILY 03/31/18 [History] Ondansetron [Ondansetron ODT] 4 mg PO Q8HR 03/31/18 [History] Past Medical History HEENT History: Reports: Cataract, Sinusitis Cardiovascular History: Reports: Blood Clots/VTE/DVT, High Cholesterol Respiratory History: Reports: Bronchitis, Recurrent, Pneumonia, Recurrent Gastrointestinal History: Reports: Other (See Below) Genitourinary History: Reports: UTI, Recurrent [employer] History: Reports: Musculoskeletal History: Reports: Back Pain, Chronic, Osteoarthritis, Osteoporosis Neurological History: Reports: Vertigo Oncologic (Cancer) History: Reports: Breast Dermatologic History: Reports: Urticaria, Other (See Below) Other Dermatologic History: Herpes Zoster - Infectious Disease History Infectious Disease History: Reports: Chicken Pox, Measles, Mumps, Shingles - Past Surgical History HEENT Surgical History: Reports: Cataract Surgery, Other (See Below) Female Surgical History: Reports: D&C Oncologic Surgical History: Reports: Lumpectomy Social & Family History - Family History Family Medical History: Unobtainable - Tobacco Use Smoking Status *Q: Never Smoker - Caffeine Use Caffeine Use: Reports: Coffee, Tea - Recreational Drug Use Recreational Drug Use: No - Living Situation & Occupation Living situation: Reports: Alone (Lives alone in [place].) ED ROS GENERAL - Review of Systems Review Of Systems: See Below Constitutional: Reports: Weakness. Denies: Fever, Chills HEENT: Reports: Throat Pain, Throat Swelling Respiratory: Reports: Shortness of Breath. Denies: Wheezing, Cough, Sputum Cardiovascular: Reports: Dyspnea on Exertion. Denies: Chest Pain GI/Abdominal: Reports: No Symptoms : Reports: No Symptoms Musculoskeletal: Reports: No Symptoms Skin: Reports: No Symptoms Neurological: Reports: No Symptoms ED EXAM, GENERAL - Physical Exam Exam: See Below Free Text/Narrative:: General: Elderly female, not in any distress, alert and oriented x3 HEENT: head is atraumatic normocephalic, eyes pupils equal round reactive to light, sclera clear no conjunctivitis appreciated. Ears tympanic membranes clear and sanchez landmarks and light reflex are present bilaterally canals are clear. Nose no septal deviation, nares are clear, no blood present. Mouth mucosa is moist and pink no erythema or exudate noted in soft palate, tongue is midline uvula is midline, dentition is intact. Neck: Supple no thyromegaly no tracheal deviation. Nodes: Cervical nodes subclavicular nodes nontender no palpable lymphadenopathy noted. Lungs: clear to auscultation bilaterally with symmetrical respirations, no adventitious noise appreciated. CV: Regular rate and rhythm S1 and S2 appreciated no murmurs rubs or gallops noted. Abdomen: Soft, nontender, no palpable masses or organomegaly appreciated, no distention no guarding bowel sounds are present, . Neuro: Cranial nerves II through XII intact, GCS 15 Skin: Warm and dry, intact Extremities: No lower extremity edema appreciated, Course - Vital Signs Last Recorded V/S: Last Vital Signs Temp 96.0 F 03/31/18 10:10 Pulse 74 03/31/18 10:42 Resp 16 03/31/18 10:10 BP 104/67 03/31/18 10:10 Pulse Ox 94 L 03/31/18 10:10 - Orders/Labs/Meds Orders: Active Orders 24 hr Category Date Time Status Cardiac Monitoring [RC] .As Directed Care 03/31/18 10:14 Active EKG Documentation Completion [RC] ASDIRECTED Care 03/31/18 10:15 Active Peripheral IV Care [RC] . DIRECTED Care 03/31/18 10:36 Active RT Aerosol Therapy [RC] ASDIRECTED Care 03/31/18 10:16 Active CULTURE STREP A CONFIRMATION [] Stat Lab 03/31/18 10:17 Results STREP SCRN A RAPID W CULT CONF [] Stat Lab 03/31/18 10:17 Results Iopamidol [Isovue-370 (76%)] Med 03/31/18 12:15 Active 100 ml IV . DIRECTED Sodium Chloride 0.9% [Normal Saline] 100 ml Med 03/31/18 12:15 Active IV ASDIRECTED Sodium Chloride 0.9% [Saline Flush] Med 03/31/18 10:36 Active 10 ml FLUSH ASDIRECTED PRN Sodium Chloride 0.9% [Saline Flush] Med 03/31/18 12:15 Active 10 ml FLUSH ONETIME Peripheral IV Insertion Adult [OM.PC] Urgent Oth 03/31/18 10:36 Ordered EKG 12 Lead [EK] Stat Ther 03/31/18 10:15 Ordered Medication Orders Sodium Chloride (Normal Saline) 100 mls @ 4 mls/sec IV ASDIRECTED CALDERON Last Admin: 03/31/18 12:22 Dose: 4 mls/sec Iopamidol (Isovue-370 (76%)) 100 ml IV . DIRECTED CALDERON Last Admin: 03/31/18 12:22 Dose: 100 ml Sodium Chloride (Saline Flush) 10 ml FLUSH ASDIRECTED PRN PRN Reason: Keep Vein Open Sodium Chloride (Saline Flush) 10 ml FLUSH ONETIME CALDERON Last Admin: 03/31/18 12:22 Dose: 10 ml Labs: Laboratory Tests 03/31/18 03/31/18 03/31/18 Range/Units 10:45 10:45 10:45 WBC 5.0 (4.5-11.0) K/uL RBC 4.62 (3.30-5.50) M/uL Hgb 14.0 (12.0-15.0) g/dL Hct 43.5 (36.0-48.0) % MCV 94 (80-98) fL MCH 30 (27-31) pg MCHC 32 (32-36) % Plt Count 156 (150-400) K/uL Neut % (Auto) 70 H (36-66) % Lymph % (Auto) 15 L (24-44) % Swain % (Auto) 13 H (2-6) % Eos % (Auto) 1 L (2-4) % Baso % (Auto) 1 (0-1) % D-Dimer, Quantitative (0.0-400.0) ng/mL Sodium 139 L (140-148) mmol/L Potassium 3.8 (3.6-5.2) mmol/L Chloride 103 (100-108) mmol/L Carbon Dioxide 29 (21-32) mmol/L Anion Gap 10.8 (5.0-14.0) mmol/L BUN 9 (7-18) mg/dL Creatinine 1.1 H (0.6-1.0) mg/dL Est Cr Clr Drug Dosing 29.24 mL/min Estimated GFR (MDRD) 47 L (>60) Glucose 101 (74-106) mg/dL Lactic Acid 2.3 H (0.4-2.0) mmol/L Calcium 8.9 (8.5-10.1) mg/dL Total Bilirubin 0.8 D (0.2-1.0) mg/dL AST 17 (15-37) U/L ALT 16 (12-78) U/L Alkaline Phosphatase 47 (46-116) U/L Troponin I < 0.017 (0.000-0.056) ng/mL C-Reactive Protein 0.54 H (0.0-0.3) mg/dL NT-Pro-B Natriuret Pep 418 (5-450) pg/mL Total Protein 6.1 L (6.4-8.2) g/dL Albumin 2.7 L (3.4-5.0) g/dL Globulin 3.4 (2.3-3.5) g/dL Albumin/Globulin Ratio 0.8 L (1.2-2.2) Urine Color Urine Appearance Urine pH (4.5-8.0) Ur Specific [place] (1.008-1.030) Urine Protein (NEGATIVE) mg/dL Urine Glucose (UA) (NEGATIVE) mg/dL Urine Ketones (NEGATIVE) mg/dL Urine Occult Blood (NEGATIVE) Urine Nitrite (NEGATIVE) Urine Bilirubin (NEGATIVE) Urine Urobilinogen (NORMAL) mg/dL Ur Leukocyte Esterase (NEGATIVE) Urine RBC (0-5) Urine WBC (0-5) Ur Epithelial Cells Amorphous Sediment Urine Bacteria Urine Mucus 03/31/18 03/31/18 Range/Units 10:45 11:56 WBC (4.5-11.0) K/uL RBC (3.30-5.50) M/uL Hgb (12.0-15.0) g/dL Hct (36.0-48.0) % MCV (80-98) fL MCH (27-31) pg MCHC (32-36) % Plt Count (150-400) K/uL Neut % (Auto) (36-66) % Lymph % (Auto) (24-44) % Swain % (Auto) (2-6) % Eos % (Auto) (2-4) % Baso % (Auto) (0-1) % D-Dimer, Quantitative 985 H (0.0-400.0) ng/mL Sodium (140-148) mmol/L Potassium (3.6-5.2) mmol/L Chloride (100-108) mmol/L Carbon Dioxide (21-32) mmol/L Anion Gap (5.0-14.0) mmol/L BUN (7-18) mg/dL Creatinine (0.6-1.0) mg/dL Est Cr Clr Drug Dosing mL/min Estimated GFR (MDRD) (>60) Glucose (74-106) mg/dL Lactic Acid (0.4-2.0) mmol/L Calcium (8.5-10.1) mg/dL Total Bilirubin (0.2-1.0) mg/dL AST (15-37) U/L ALT (12-78) U/L Alkaline Phosphatase (46-116) U/L Troponin I (0.000-0.056) ng/mL C-Reactive Protein (0.0-0.3) mg/dL NT-Pro-B Natriuret Pep (5-450) pg/mL Total Protein (6.4-8.2) g/dL Albumin (3.4-5.0) g/dL Globulin (2.3-3.5) g/dL Albumin/Globulin Ratio (1.2-2.2) Urine Color Yellow Urine Appearance Clear Urine pH 6.0 (4.5-8.0) Ur Specific [place] 1.005 L (1.008-1.030) Urine Protein Negative (NEGATIVE) mg/dL Urine Glucose (UA) Normal (NEGATIVE) mg/dL Urine Ketones Negative (NEGATIVE) mg/dL Urine Occult Blood Negative (NEGATIVE) Urine Nitrite Negative (NEGATIVE) Urine Bilirubin Negative (NEGATIVE) Urine Urobilinogen Normal (NORMAL) mg/dL Ur Leukocyte Esterase Negative (NEGATIVE) Urine RBC Not seen (0-5) Urine WBC Not seen (0-5) Ur Epithelial Cells Rare Amorphous Sediment Not seen Urine Bacteria Not seen Urine Mucus Not seen Meds: Medications Generic Name Dose Route Start Last Admin Trade Name Frevanessa PRN Reason Stop Dose Admin Sodium Chloride 100 mls @ 4 mls/sec 03/31/18 12:15 03/31/18 12:22 Normal Saline IV 4 mls/sec ASDIRECTED CALDERON Administration Iopamidol 100 ml 03/31/18 12:15 03/31/18 12:22 Isovue-370 (76%) IV 100 ml . DIRECTED CALDERON Administration Sodium Chloride 10 ml 03/31/18 10:36 Saline Flush FLUSH ASDIRECTED PRN Keep Vein Open Sodium Chloride 10 ml 03/31/18 12:15 03/31/18 12:22 Saline Flush FLUSH 10 ml ONETIME CALDERON Administration Discontinued Medications Generic Name Dose Route Start Last Admin Trade Name Don PRN Reason Stop Dose Admin Albuterol/Ipratropium 3 ml 03/31/18 10:16 03/31/18 10:38 Duoneb 3.0-0.5 Mg/3 Ml NEB 03/31/18 10:17 3 ml ONETIME ONE Administration Lactated Ringer's 1,000 mls @ 999 mls/hr 03/31/18 10:36 03/31/18 10:55 Ringers, Lactated IV 03/31/18 11:36 999 mls/hr BOLUS ONE Administration Departure - Departure Time of Disposition: 15:15 Disposition: Home, Self-Care 01 Condition: Fair Clinical Impression: Weakness - Discharge Information Referrals: PCP,None [Primary Care Provider] - Forms: ED Department Discharge Additional Instructions: Recommend stopping the levofloxacin, change antibiotics to doxycycline start that today, Please followup with your primary care provider in 5-7 days if not better, please call return to the emergency department with worsening of symptoms. - My Orders Last 24 Hours: My Active Orders 03/31/18 10:14 Cardiac Monitoring [RC] .As Directed 03/31/18 10:15 EKG Documentation Completion [RC] ASDIRECTED EKG 12 Lead [EK] Stat 03/31/18 10:16 RT Aerosol Therapy [RC] ASDIRECTED 03/31/18 10:17 CULTURE STREP A CONFIRMATION [RM] Stat STREP SCRN A RAPID W CULT CONF [RM] Stat 03/31/18 10:36 Peripheral IV Care [RC] . DIRECTED Sodium Chloride 0.9% [Saline Flush] 10 ml FLUSH ASDIRECTED PRN Peripheral IV Insertion Adult [OM.PC] Urgent 03/31/18 12:15 Iopamidol [Isovue-370 (76%)] 100 ml IV . DIRECTED Sodium Chloride 0.9% [Normal Saline] 100 ml IV ASDIRECTED Sodium Chloride 0.9% [Saline Flush] 10 ml FLUSH ONETIME - Assessment/Plan Last 24 Hours: My Active Orders 03/31/18 10:14 Cardiac Monitoring [RC] .As Directed 03/31/18 10:15 EKG Documentation Completion [RC] ASDIRECTED EKG 12 Lead [EK] Stat 03/31/18 10:16 RT Aerosol Therapy [RC] ASDIRECTED 03/31/18 10:17 CULTURE STREP A CONFIRMATION [RM] Stat STREP SCRN A RAPID W CULT CONF [RM] Stat 03/31/18 10:36 Peripheral IV Care [RC] . DIRECTED Sodium Chloride 0.9% [Saline Flush] 10 ml FLUSH ASDIRECTED PRN Peripheral IV Insertion Adult [OM.PC] Urgent 03/31/18 12:15 Iopamidol [Isovue-370 (76%)] 100 ml IV . DIRECTED Sodium Chloride 0.9% [Normal Saline] 100 ml IV ASDIRECTED Sodium Chloride 0.9% [Saline Flush] 10 ml FLUSH ONETIME Plan: Assessment Acuity = acute Site and laterality = weakness Etiology = possibly related to levofloxacin Manifestations = none Location of injury = Home Lab values = CBC unremarkable d-dimer elevated at 985 unclear significance creatinine elevated 1.1 consistent with chronic renal failure stage GIII a troponin negative BNP negative urinalysis unremarkable CT scan of the chest shows no acute process no pneumonia and no pulmonary embolism Plan I did review lab work CT scan results with her she felt better after a meal plan is to stop the levofloxacin will try her on doxycycline 100 mg by mouth twice a day 5 days follow-up primary care 5-7 days if not better This note was dictated using [employer] voice recognition software please call with any questions on syntax or grammar.
[2018-03-31] MEDS ORDERED: Sodium Chloride 0.9% 10 ML Syringe FLUSH PRN (10:36)
[2018-03-31] MEDS ORDERED: Lactated Ringers 1,000 ML IV ONE (10:36)
[2018-03-31] MEDS ORDERED: Sodium Chloride 0.9% 10 ML Syringe FLUSH SCH (12:15)
[2018-03-31] MEDS ORDERED: Sodium Chloride 0.9% 100 ML IV SCH (12:15)
[2018-03-31] MEDS ORDERED: Iopamidol 755 Mg/ML 100 ML Bottle IV SCH (12:15)
--- NOTE | 2018-03-31 13:33 | CRLCR ---
INDICATION: SOB. TECHNIQUE: PA and lateral. COMPARISON: 03/03/2017. FINDINGS: Lungs and pleural space is clear. Heart size and pulmonary vasculature within normal limits. Moderate kyphoscoliosis, as before. IMPRESSION: 1. Clear lungs. 2. Moderate kyphoscoliosis. Dictated by Woodrow Haddad MD @ Mar 31 2018 1:29PM Signed by Dr. Woodrow Haddad @ Mar 31 2018 1:33PM
--- NOTE | 2018-03-31 14:08 | CRLCT ---
INDICATION: Shortness of breath. COMPARISON: Chest radiograph March 03, 2017 and March 31, 2018. TECHNIQUE: CT chest with intravenous contrast; coronal and sagittal reformats. FINDINGS: No CT evidence of acute or chronic pulmonary thromboembolism. Normal size cardiac silhouette without any evidence of pericardial effusion. No abnormal mediastinal or hilar lymphadenopathy. No endobronchial pathology. No abnormal intra pulmonary nodular densities are identified. A 2.8 x 1 cm pleural-based soft tissue density lower lobe left lung slice 86 series 5. Small left-sided pleural effusion with reactive pleural changes. Limited CT through the upper abdomen reveals a 3 cm cyst in segment 4B. Scoliosis thoracic spine. IMPRESSION: 1. No CT evidence of pulmonary thromboembolism. 2. A 2.8 x 1 cm pleural-based soft tissue density posterior medial aspect left lower thorax with associated pleural reaction; followup chest CT in 3 months duration suggested. 3. Benign cysts segment 4B. Please note that all CT scans at this facility use dose modulation, iterative reconstruction, and/or weight-based dosing when appropriate to reduce radiation dose to as low as reasonably achievable. Dictated by Moustapha Chappell MD @ Mar 31 2018 2:02PM Signed by Dr. Moustapha Chappell @ Mar 31 2018 2:07PM
== END 2018-03-31 15:37 | disposition home or self-care (01) ==
LOC: JP.ED 09:35
DX: R53.1 Weakness (principal); E78.00 Pure hypercholesterolemia, unspecified; Z88.0 Allergy status to penicillin; Z88.8 Allergy status to other drugs, medicaments and biological substances; Z91.040 Latex allergy status; Z88.2 Allergy status to sulfonamides; Z88.1 Allergy status to other antibiotic agents; Z79.899 Other long term (current) drug therapy
CPT/HCPCS: 36415; 71046; 71275; 80053; 81001; 83605; 83880; 84484; 85025; 85379; 86140; 87081; 87430; 93005; 93010; 94640; 96360; 99284; 99285; J7030; J7120; Q9967; J7620-GY

== ENCOUNTER 2018-11-10 08:07 | Emergency (ER) | payer MEDICARE, MEDICAID ==
[2018-11-10 08:35] VITALS: BP 130/86; PULSE 83
--- NOTE | 2018-11-10 09:00 | EDM.PDOC ---
ED HPI GENERAL MEDICAL PROBLEM - General Chief Complaint: General Stated Complaint: VERTIGO Time Seen by Provider: 11/10/18 08:42 Source of Information: Reports: Patient, Old Records, RN Notes Reviewed History Limitations: Reports: No Limitations - History of Present Illness INITIAL COMMENTS - FREE TEXT/NARRATIVE: 88-year-old female presents emergency department today with complaint of dizziness, she was evaluated in clinic yesterday for dizziness extensive blood work performed which was unremarkable she was started on meclizine which provided some relief. She woke up this morning with complaint of dizziness did take her meclizine and by the time she arrives to the emergency department she feels most of her symptoms now have resolved she does feel a little dehydrated Denies Pain Score (Numeric/FACES): 0 - Related Data Allergies Allergy/AdvReac Type Severity Reaction Status Date / Time Penicillins Allergy Severe Anaphylactic Verified 11/10/18 08:28 Shock cefdinir Allergy Intermediate Rash Verified 11/10/18 08:28 Latex, Natural Rubber Allergy Rash Verified 11/10/18 08:28 erythromycin base AdvReac Nausea and Verified 11/10/18 08:28 [Erythromycin Base] Vomiting sulfamethoxazole AdvReac Vomiting Verified 11/10/18 08:28 [From Bactrim] trimethoprim [From Bactrim] AdvReac Vomiting Verified 11/10/18 08:28 Home Meds: Home Meds Multivitamin [Gummi Bear Multivitamin] 2 tab PO DAILY 03/17/17 [History] Meclizine [Antivert] 25 mg PO Q6H PRN #30 tab 07/14/17 [Rx] Acetaminophen [Tylenol] 325 mg PO Q6H PRN 11/10/18 [History] Calcium Carbonate/Vitamin D3 [Calcium Carbonate/Vitamin D 600 MG-200 Unit] 1 tab PO DAILY 11/10/18 [History] Doxepin [SINEquan] 50 mg PO BEDTIME 11/10/18 [History] Magnesium Amino Acid Chelate [Magnesium] 100 mg PO DAILY 11/10/18 [History] Oxybutynin 2.5 mg PO DAILY 11/10/18 [History] Tumeric 0.5 tsp PO DAILY 11/10/18 [History] Past Medical History HEENT History: Reports: Cataract, Glaucoma, Sinusitis Other HEENT History: hyperopia both eyes Cardiovascular History: Reports: Blood Clots/VTE/DVT, High Cholesterol Respiratory History: Reports: Bronchitis, Recurrent, Pneumonia, Recurrent Gastrointestinal History: Reports: Other (See Below) Genitourinary History: Reports: UTI, Recurrent METAL RECLAMATION 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: Musculoskeletal History: Reports: Back Pain, Chronic, Osteoarthritis, Osteoporosis, Other (See Below) Other Musculoskeletal History: scoliosis Neurological History: Reports: Vertigo Oncologic (Cancer) History: Reports: Breast Dermatologic History: Reports: Urticaria, Other (See Below) Other Dermatologic History: Herpes Zoster - Infectious Disease History Infectious Disease History: Reports: Chicken Pox, Measles, Mumps, Shingles - Past Surgical History HEENT Surgical History: Reports: Cataract Surgery, Other (See Below) Female Surgical History: Reports: D&C Social & Family History - Family History Family Medical History: Unobtainable - Tobacco Use Smoking Status *Q: Never Smoker Second Hand Smoke Exposure: No - Caffeine Use Caffeine Use: Reports: Coffee, Tea - Recreational Drug Use Recreational Drug Use: No - Living Situation & Occupation Living situation: Reports: Alone (Lives alone in [place].) ED ROS GENERAL - Review of Systems Review Of Systems: See Below Constitutional: Reports: No Symptoms Respiratory: Reports: No Symptoms Cardiovascular: Reports: No Symptoms GI/Abdominal: Reports: Nausea Neurological: Reports: Dizziness ED EXAM, GENERAL - Physical Exam Exam: See Below Exam Limited By: No Limitations General Appearance: Alert, WD/WN, No Apparent Distress Respiratory/Chest: No Respiratory Distress, Lungs Clear, Normal Breath Sounds, No Accessory Muscle Use, Chest Non-Tender Cardiovascular: Regular Rate, Rhythm, No Murmur Course - Vital Signs Last Recorded V/S: Last Vital Signs Temp 98.5 F 11/10/18 08:40 Pulse 83 11/10/18 08:40 Resp 16 11/10/18 08:40 BP 130/86 11/10/18 08:40 Pulse Ox 96 11/10/18 08:40 Departure - Departure Time of Disposition: 09:20 Disposition: Home, Self-Care 01 Condition: Fair Clinical Impression: Dizziness - Discharge Information Referrals: PCP,None [Primary Care Provider] - Forms: ED Department Discharge Additional Instructions: Follow-up with your primary care as needed call return to the emergency department worsening of symptoms - Assessment/Plan Plan: Assessment Acuity = acute Site and laterality = dizziness Etiology = unclear etiology Manifestations = none Location of injury = Home Lab values = none Plan She feels her symptoms have resolved by the time she arrived emergency department after taking her meclizine she was given 2 bottles of water plan is to follow-up with her primary care as needed This note was dictated using [employer] voice recognition software please call with any questions on syntax or grammar.
== END 2018-11-10 09:32 | disposition home or self-care (01) ==
LOC: JP.ED 08:07
DX: R42 Dizziness and giddiness (principal); M19.90 Unspecified osteoarthritis, unspecified site; Z88.0 Allergy status to penicillin; Z88.1 Allergy status to other antibiotic agents; Z88.8 Allergy status to other drugs, medicaments and biological substances; Z79.899 Other long term (current) drug therapy; Z91.040 Latex allergy status
CPT/HCPCS: 99282; 99283

== ENCOUNTER 2019-01-05 23:59 | Inpatient (IN) | payer MEDICARE, MEDICAID ==
[2019-01-06] MEDS ORDERED: Ondansetron 4 MG/2 ML SDV IVPUSH ONE (00:24)
[2019-01-06] MEDS ORDERED: fentaNYL 100 MCG/2 ML SDV IVPUSH ONE (00:25)
--- NOTE | 2019-01-06 00:29 | EDM.PDOC ---
ED HPI GENERAL MEDICAL PROBLEM - General Chief Complaint: Abdominal Pain Stated Complaint: VOMITING/ABD PAIN Time Seen by Provider: 01/06/19 00:05 Source of Information: Reports: Patient, Family History Limitations: Reports: No Limitations - History of Present Illness INITIAL COMMENTS - FREE TEXT/NARRATIVE: 88-year-old female who lives independently, was doing well but after supper tonight developed lower abdominal pain which has worsened. She feels distended, and she's also developed some persistent nausea and vomiting. No fever or chills , no diarrhea. She has no history of abdominal surgeries, she is usually healthy and has not had these types of symptoms in the past. Pain does not radiate to the back, it's mostly lower abdomen. Denies chest pain or shortness of breath. Onset: Sudden (Started fairly suddenly after supper) Duration: Hour(s): (Has had pain for 6 hours) Location: Reports: Abdomen Quality: Reports: Sharp, Other (Cramping) Improves with: Reports: None Worsens with: Reports: None Associated Symptoms: Reports: Loss of Appetite, Malaise, Nausea/Vomiting. Denies: Chest Pain, Fever/Chills, Shortness of Breath, Weakness Abdominal Pain Score (Numeric/FACES): 10 back Pain Score (Numeric/FACES): 10 - Related Data Allergies Allergy/AdvReac Type Severity Reaction Status Date / Time Penicillins Allergy Severe Anaphylactic Verified 01/06/19 00:13 Shock cefdinir Allergy Intermediate Rash Verified 01/06/19 00:13 Latex, Natural Rubber Allergy Rash Verified 01/06/19 00:13 erythromycin base AdvReac Nausea and Verified 01/06/19 00:13 [Erythromycin Base] Vomiting sulfamethoxazole AdvReac Vomiting Verified 01/06/19 00:13 [From Bactrim] trimethoprim [From Bactrim] AdvReac Vomiting Verified 01/06/19 00:13 Home Meds: Home Meds Multivitamin [Gummi Bear Multivitamin] 2 tab PO DAILY 03/17/17 [History] Meclizine [Antivert] 25 mg PO Q6H PRN #30 tab 07/14/17 [Rx] Acetaminophen [Tylenol] 325 mg PO Q6H PRN 11/10/18 [History] Calcium Carbonate/Vitamin D3 [Calcium Carbonate/Vitamin D 600 MG-200 Unit] 1 tab PO DAILY 11/10/18 [History] Magnesium Amino Acid Chelate [Magnesium] 100 mg PO DAILY 11/10/18 [History] Tumeric 0.5 tsp PO DAILY 11/10/18 [History] Ondansetron [Zofran ODT] 4 mg PO Q8H PRN 01/06/19 [History] Past Medical History HEENT History: Reports: Cataract, Glaucoma, Sinusitis Other HEENT History: hyperopia both eyes Cardiovascular History: Reports: Blood Clots/VTE/DVT, High Cholesterol Respiratory History: Reports: Bronchitis, Recurrent, Pneumonia, Recurrent Gastrointestinal History: Reports: Other (See Below) Genitourinary History: Reports: UTI, Recurrent 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: Musculoskeletal History: Reports: Back Pain, Chronic, Osteoarthritis, Osteoporosis, Other (See Below) Other Musculoskeletal History: scoliosis Neurological History: Reports: Vertigo Oncologic (Cancer) History: Reports: Breast Dermatologic History: Reports: Urticaria, Other (See Below) Other Dermatologic History: Herpes Zoster - Infectious Disease History Infectious Disease History: Reports: Chicken Pox, Measles, Mumps, Shingles - Past Surgical History HEENT Surgical History: Reports: Cataract Surgery, Other (See Below) Female Surgical History: Reports: D&C Social & Family History - Family History Family Medical History: Unobtainable - Tobacco Use Smoking Status *Q: Never Smoker - Caffeine Use Caffeine Use: Reports: Coffee, Tea - Living Situation & Occupation Living situation: Reports: Alone (Lives alone in [place].) ED ROS GENERAL - Review of Systems Review Of Systems: See Below Constitutional: Denies: Fever, Chills HEENT: Reports: No Symptoms Respiratory: Reports: No Symptoms GI/Abdominal: Reports: Abdominal Pain, Nausea, Vomiting : Reports: No Symptoms (Treated for UTI 1 month ago) Skin: Reports: No Symptoms Neurological: Denies: Headache ED EXAM, GI/ABD - Physical Exam Exam: See Below Exam Limited By: No Limitations General Appearance: Alert, Mild Distress (Looks really uncomfortable) Eyes: Bilateral: Normal Appearance (No jaundice) Head: Atraumatic Respiratory/Chest: No Respiratory Distress, Lungs Clear Cardiovascular: Regular Rate, Rhythm GI/Abdominal Exam: Tender (Very tender to palpation across the lower abdomen with moderate guarding), Abnormal Bowel Sounds (Hyperactive bowel sounds). No: Distended Neurological: Alert, Oriented Skin Exam: Warm, Dry Course - Vital Signs Last Recorded V/S: Last Vital Signs Temp 97.7 F 01/06/19 02:44 Pulse 80 01/06/19 02:44 Resp 18 01/06/19 02:44 BP 159/86 H 01/06/19 02:44 Pulse Ox 95 01/06/19 03:06 - Orders/Labs/Meds Orders: Active Orders 24 hr Category Date Time Status Admission Diagnosis [ADT] Routine ADT 01/06/19 01:50 Ordered UA W/MICROSCOPIC [URIN] Urgent Lab 01/06/19 00:39 Ordered Medication Orders Diphenhydramine HCl (Benadryl) 25 - 50 mg IVPUSH Q4H PRN PRN Reason: ITCHING Diphenhydramine HCl (Benadryl) 25 - 50 mg PO Q4H PRN PRN Reason: ITCHING Fentanyl (Sublimaze) 10 - 30 mcg IVPUSH Q1H PRN PRN Reason: Pain (severe 7-10) Last Admin: 01/06/19 03:33 Dose: 25 mcg Sodium Chloride (Normal Saline) 1,000 mls @ 125 mls/hr IV ASDIRECTED [facility] Morphine Sulfate (Morphine) 1 - 3 mg IVPUSH Q1H PRN PRN Reason: Pain Last Admin: 01/06/19 05:25 Dose: 2 mg Admin: 01/06/19 04:17 Dose: 2 mg Check Scopolamine (Patch Daily) 1 each .XX DAILY [facility] Ondansetron HCl (Zofran) 4 mg IVPUSH Q8H PRN PRN Reason: Nausea Promethazine HCl (Phenergan) 12.5 - 25 mg IV Q8H PRN PRN Reason: NAUSEA Scopolamine (Transderm-Scop) 1.5 mg TOP Q72H PRN PRN Reason: NAUSEA Labs: Laboratory Tests 01/06/19 01/06/19 01/06/19 Range/Units 00:46 00:46 01:20 WBC 7.4 (4.5-11.0) K/uL RBC 4.57 (3.30-5.50) M/uL Hgb 14.4 (12.0-15.0) g/dL Hct 44.4 (36.0-48.0) % MCV 97 (80-98) fL MCH 32 H (27-31) pg MCHC 32 (32-36) % Plt Count 182 (150-400) K/uL Neut % (Auto) 78 H (36-66) % Lymph % (Auto) 14 L (24-44) % Crook % (Auto) 6 (2-6) % Eos % (Auto) 1 L (2-4) % Baso % (Auto) 0 (0-1) % Sodium 141 (140-148) mmol/L Potassium 4.3 (3.6-5.2) mmol/L Chloride 105 (100-108) mmol/L Carbon Dioxide 27 (21-32) mmol/L Anion Gap 9.2 (5.0-14.0) mmol/L BUN 14 D (7-18) mg/dL Creatinine 0.8 (0.6-1.0) mg/dL Est Cr Clr Drug Dosing 38.29 mL/min Estimated GFR (MDRD) > 60 (>60) Glucose 129 H (74-106) mg/dL Lactic Acid 1.3 (0.4-2.0) mmol/L Calcium 8.9 (8.5-10.1) mg/dL Total Bilirubin 0.5 (0.2-1.0) mg/dL AST 26 (15-37) U/L ALT 17 (12-78) U/L Alkaline Phosphatase 48 (46-116) U/L Total Protein 6.1 L (6.4-8.2) g/dL Albumin 2.8 L (3.4-5.0) g/dL Globulin 3.3 (2.3-3.5) g/dL Albumin/Globulin Ratio 0.9 L (1.2-2.2) Lipase 111 (73-393) U/L Meds: Medications Generic Name Dose Route Start Last Admin Trade Name Freq PRN Reason Stop Dose Admin Diphenhydramine HCl 25 - 50 mg 01/06/19 01:50 Benadryl IVPUSH Q4H PRN ITCHING Diphenhydramine HCl 25 - 50 mg 01/06/19 01:50 Benadryl PO Q4H PRN ITCHING Fentanyl 10 - 30 mcg 01/06/19 03:20 01/06/19 03:33 Sublimaze IVPUSH 25 mcg Q1H PRN Administration Pain (severe 7-10) Sodium Chloride 1,000 mls @ 125 mls/hr 11/14/19 03:00 Normal Saline IV ASDIRECTED [facility] Morphine Sulfate 1 - 3 mg 01/06/19 03:18 01/06/19 05:25 Morphine IVPUSH 2 mg Q1H PRN Administration Pain Check Scopolamine 1 each 01/06/19 09:00 Patch Daily .XX DAILY [facility] Ondansetron HCl 4 mg 01/06/19 01:50 Zofran IVPUSH Q8H PRN Nausea Promethazine HCl 12.5 - 25 mg 01/06/19 01:50 Phenergan IV Q8H PRN NAUSEA Scopolamine 1.5 mg 01/06/19 01:50 Transderm-Scop TOP Q72H PRN NAUSEA Discontinued Medications Generic Name Dose Route Start Last Admin Trade Name Freq PRN Reason Stop Dose Admin Fentanyl 25 mcg 01/06/19 00:25 01/06/19 00:50 Sublimaze IVPUSH 01/06/19 00:26 25 mcg ONETIME ONE Administration Fentanyl 10 - 30 mcg 01/06/19 01:50 Sublimaze IVPUSH Q1H PRN PAIN Sodium Chloride 1,000 mls @ 250 mls/hr 01/06/19 00:30 01/06/19 00:50 Normal Saline IV 250 mls/hr ASDIRECTED [facility] Administration Morphine Sulfate 1 - 3 mg 01/06/19 01:50 Morphine IV Q1H PRN PAIN Morphine Sulfate 1 - 3 mg 01/06/19 03:23 Morphine IVPUSH Q1H PRN PAIN Ondansetron HCl 4 mg 01/06/19 00:24 01/06/19 00:51 Zofran IVPUSH 01/06/19 00:25 4 mg ONETIME ONE Administration - Re-Assessments/Exams Free Text/Narrative Re-Assessment/Exam: 01/06/19 00:28 An IV will be started and the patient will be given 25 g of fentanyl and 4 mg of IV Zofran. Normal saline at 250 mL an hour will be started, CBC CMP and lipase obtained. A CT scan to rule out bowel obstruction will likely be needed. 01/06/19 01:29 IMPRESSIONS: 1. A new cluster of nodular infiltrates are present in the posterior right lower lobe on image 10. This may be due to mild bronchiolitis. 2. Fluid filled small bowel loops are present within the pelvis near the upper limits of normal with edema of the associated mesentery. There is a suspected transition point with swelled mesenteric vessels seen on images 89-99. Findings are suspicious for early closed loop small bowel obstruction. 01/06/19 01:48 White count is normal, lactic acid normal. CT however shows a likely closed loop small bowel obstruction, see above. Findings were discussed with Dr. Carrington of surgery, he accepted for admission and likely surgery later this morning. Departure - Departure Time of Disposition: 02:34 Disposition: Admitted As Inpatient 66 Clinical Impression: Small bowel obstruction Abdominal pain Qualifiers: Abdominal location: lower abdomen, unspecified Qualified Code(s): R10.30 - Lower abdominal pain, unspecified - Discharge Information - My Orders Last 24 Hours: My Active Orders 01/06/19 00:39 UA W/MICROSCOPIC [URIN] Urgent - Assessment/Plan Last 24 Hours: My Active Orders 01/06/19 00:39 UA W/MICROSCOPIC [URIN] Urgent
[2019-01-06] MEDS ORDERED: Sodium Chloride 0.9% 1,000 ML IV SCH ×3 (00:30→13:30)
--- NOTE | 2019-01-06 01:24 | CRLCT ---
INDICATION: Abdominal pain TECHNIQUE: CT Abdomen and pelvis without i.v. contrast. Coronal and sagittal reformats were obtained. COMPARISON: 11/03/2018 FINDINGS: Lower chest: A new cluster of nodular infiltrates are present in the posterior right lower lobe on image 10. Minimal peripheral bronchiolectasis and subpleural centrilobular nodules are present in lung bases bilaterally without change. Liver: Liver cysts are present measuring up to 2.5 cm. The tubular hypodense vascular anomaly in the posterior dome of the liver is present without change but better assessed on prior contrast enhanced imaging. Spleen: Unremarkable. Pancreas: Unremarkable. Gallbladder: A tiny punctate calcified gallstone is noted. Kidney: There is a 2 cm cyst in upper pole of the left kidney. Left peripelvic cysts are present in the renal sinus. Adrenal: Unremarkable. Bowel: Fluid filled small bowel loops are present within the pelvis near the upper limits of normal with edema of the associated mesentery. There is a suspected transition point with swelled mesenteric vessels seen on images 89-99. The appendix is normal in appearance and size. Vascular: Severe diffuse atherosclerotic calcifications of the abdominal aorta and its tributaries are present. Lymph: Unremarkable. Peritoneum: Unremarkable. No pneumoperitoneum is seen. A small amount of pelvic ascites is present. Pelvis: There is a 1.3 cm calcified uterine fibroid noted. Soft tissue: Unremarkable. Bone: Moderate to severe levoscoliosis is noted with associated facet arthritis and degenerative disc disease. IMPRESSIONS: 1. A new cluster of nodular infiltrates are present in the posterior right lower lobe on image 10. This may be due to mild bronchiolitis. 2. Fluid filled small bowel loops are present within the pelvis near the upper limits of normal with edema of the associated mesentery. There is a suspected transition point with swelled mesenteric vessels seen on images 89-99. Findings are suspicious for early closed loop small bowel obstruction. Dictated by Edwin Marquez MD @ 01/06/2019 1:22:58 AM Please note that all CT scans at this facility use dose modulation, iterative reconstruction, and/or weight-based dosing when appropriate to reduce radiation dose to as low as reasonably achievable. Dictated by: Edwin Marquez MD @ 01/06/2019 01:23:05 (Electronically Signed)
[2019-01-06] MEDS ORDERED: Morphine 2 MG/ML Syringe IV PRN (01:50)
[2019-01-06] MEDS ORDERED: Scopolamine 1.5 MG Transdermal Patch TOP PRN (01:50)
[2019-01-06] MEDS ORDERED: diphenhydrAMINE 50 MG/ML SDV IVPUSH PRN (01:50)
[2019-01-06] MEDS ORDERED: diphenhydrAMINE 25 MG Cap PO PRN (01:50)
[2019-01-06] MEDS ORDERED: fentaNYL 100 MCG/2 ML SDV IVPUSH PRN ×2 (01:50→03:20)
[2019-01-06] MEDS ORDERED: Morphine 2 MG/ML Syringe IVPUSH PRN (03:23)
[2019-01-06] MEDS: Morphine 2 MG/ML Syringe IVPUSH PRN ×4 (04:17→15:51)
[2019-01-06] MEDS ORDERED: fentaNYL 250 MCG/5 ML SDV ONE (07:00)
[2019-01-06] MEDS ORDERED: Rocuronium 50 MG/5 ML Vial ONE (07:01)
[2019-01-06] MEDS ORDERED: Succinylcholine 200 MG/10 ML MDV ONE (07:01)
[2019-01-06] MEDS ORDERED: Glycopyrrolate 0.2 MG/ML 5 ML MDV ONE (07:01)
[2019-01-06] MEDS ORDERED: Dexamethasone 4 MG/ML SDV ONE (07:01)
[2019-01-06] MEDS ORDERED: Ondansetron 4 MG/2 ML SDV ONE (07:01)
[2019-01-06] MEDS ORDERED: Neostigmine Methylsulfate 1 MG/ML 5 ML Syringe ONE (07:01)
[2019-01-06] MEDS ORDERED: Propofol 200 MG/20 ML SDV ONE (07:01)
[2019-01-06] MEDS ORDERED: Bupivacaine 0.5%/EPINEPHrine 1:200,000 50 ML MDV ONE (07:05)
[2019-01-06] MEDS ORDERED: metroNIDAZOLE/Normal Saline 500 MG in Premix Bag 1 BAG IV ONE (07:45)
[2019-01-06] MEDS ORDERED: ceFAZolin 1 GM Vial ONE (07:52)
[2019-01-06] MEDS ORDERED: Lactated Ringers 1,000 ML ONE (08:06)
--- NOTE | 2019-01-06 10:22 | CONS ---
DATE OF SERVICE: 01/06/2019 REFERRING PHYSICIAN: CONSULTING PHYSICIAN: Nacho Carrington MD REASON FOR CONSULTATION: Abdominal pain. HISTORY OF PRESENT ILLNESS: An 88-year-old female who lives at home, who developed significant abdominal pain over the last 24 hours. This is a new problem for her. No previous abdominal surgery. There is associated with nausea and vomiting. Pain described as 3 to 4/10 and it is intermittent. PAST MEDICAL HISTORY: No previous abdominal surgery. 1. Glaucoma. 2. Cataracts. 3. History of DVTs. 4. Bronchitis. 5. Chronic history of pneumonia. 6. Urinary tract infections. 7. Chronic back pain. 8. Osteoarthritis. 9. Osteoporosis. SOCIAL HISTORY: She lives alone. She is not a smoker. FAMILY HISTORY: Noncontributory. REVIEW OF SYSTEMS: GENERAL: Appropriate for age. HEENT: Nonsmoker. CARDIOVASCULAR: No history of myocardial infarction. RESPIRATORY: Chronic pneumonias. GASTROINTESTINAL: As above and below. GENITOURINARY: History of urinary tract infections. NEUROLOGICAL: Chronic back pain. PSYCHIATRIC: No gross depression. Remainder of systems is reviewed and is negative. PHYSICAL EXAMINATION: VITAL SIGNS: Temperature is 97.7, blood pressure 130/66, pulse 71, and respirations 15. HEENT: Pupils are equal. NECK: Supple. LUNGS: Clear. CARDIOVASCULAR: Regular rhythm and rate. RESPIRATORY: Lungs are clear to auscultation bilaterally. ABDOMEN: Distended. Pain with palpation. Minimal rebound. No guarding. EXTREMITIES: Full range of motion. NEUROLOGICAL: Oriented x3. PSYCHIATRIC: No gross depression. LABORATORY DATA: Laboratory results show a white blood cell count of 6.5 with a normal sodium, potassium, and creatinine. IMAGING DATA: Which I did review, which suggest a possible bowel obstruction. PLAN: To the operating room for diagnostic laparoscopy. We discussed risks, benefits, alternatives, and limitations including, but not limited to, infection, bleeding, and injury to abdominal structures, possibility of open surgery and other risks not listed here. The patient understands these risks and wishes to proceed. Nacho Carrington MD /[id number]
[2019-01-06] MEDS: Sodium Chloride 0.9% 1,000 ML IV SCH ×2 (10:33→19:29)
[2019-01-06] MEDS ORDERED: Lactated Ringers 500 ML IV ONE (13:00)
[2019-01-06] MEDS ORDERED: Docusate Sodium 100 MG Cap PO PRN (13:16)
[2019-01-06] MEDS ORDERED: Benzocaine/Cetylpyridinium/Menthol Lozenge MUCMEM PRN (13:16)
--- NOTE | 2019-01-06 13:31 | OR ---
DATE OF PROCEDURE: 01/06/2019 SURGEON: Nacho Carrington MD PROCEDURES: 1. Diagnostic laparoscopy. 2. Drainage of peritoneal fluid approximately 250 mL and culture of this (12626). 3. Repair of internal hernia secondary to single adhesion (12662). COMPLICATIONS: None. GASTROENTEROLOGY TECHNICIAN: None. PREOPERATIVE DIAGNOSIS: Abdominal pain. POSTOPERATIVE DIAGNOSIS: Abdominal pain. INDICATIONS: An 88-year-old female with new onset abdominal pain, requiring exploratory laparotomy and diagnostic laparoscopy. RISKS: Risks, benefits, alternatives, and limitations including, but not limited to infection, bleeding, and perforation of abdominal structures were explained to the patient, who wished to proceed. PROCEDURE IN DETAIL: The patient was placed in supine position. In the right abdomen, a 12 mm incision was made. A Veress needle was used to enter the abdomen without abnormality. A drop test was performed without abnormality and this was subsequently insufflated. This was followed by an Optiview trocar. After insufflation, the Optiview trocar was introduced. No evidence of enterotomy or injury was noted. The patient was noted to have a questionable viable bowel at that time, so therefore, the diagnostic laparoscopy was terminated. Exploratory laparotomy was then initiated. A midline abdominal incision was made and electrocautery was used to carry it down into the abdomen. A single band of adhesion was noted. This was transected without difficulty. The bowel was left to rest for approximately 5 minutes, and it appeared viable. However, there may be some area of possible questionability. Therefore, the fascia was then closed and skin was closed, and the patient will be scheduled for a second-look laparotomy in the a.. Nacho Carrington MD /[id number]
[2019-01-07] MEDS: Sodium Chloride 0.9% 1,000 ML IV SCH (03:09)
[2019-01-07] MEDS ORDERED: Meropenem 500 MG in Sodium Chloride 0.9% 50 ML IV ONE (08:30)
[2019-01-07] MEDS ORDERED: Rocuronium 50 MG/5 ML Vial ONE (09:01)
[2019-01-07] MEDS ORDERED: Propofol 200 MG/20 ML SDV ONE (09:01)
[2019-01-07] MEDS ORDERED: fentaNYL 250 MCG/5 ML SDV ONE (09:01)
[2019-01-07] MEDS ORDERED: Glycopyrrolate 0.2 MG/ML 5 ML MDV ONE (09:23)
[2019-01-07] MEDS ORDERED: Phenylephrine 1% 10 MG/ML SDV ONE (09:27)
[2019-01-07] MEDS ORDERED: Ondansetron 4 MG/2 ML SDV ONE (09:28)
[2019-01-07] MEDS ORDERED: Dexamethasone 4 MG/ML SDV ONE (09:28)
[2019-01-07] MEDS ORDERED: Neostigmine Methylsulfate 1 MG/ML 5 ML Syringe ONE (09:28)
[2019-01-07] MEDS ORDERED: Bupivacaine 0.5%/EPINEPHrine 1:200,000 50 ML MDV ONE (09:37)
[2019-01-07] MEDS ORDERED: Sodium Chloride 0.9% 1,000 ML ONE ×2 (09:49)
[2019-01-07] MEDS: Enoxaparin 40 MG/0.4 ML Syringe SUBCUT SCH (10:48)
--- NOTE | 2019-01-07 15:14 | OR ---
DATE OF PROCEDURE: 01/07/2019 SURGEON: Nacho Carrington MD PROCEDURES: 1. Delayed primary closure. 2. Reopening of recent laparotomy. COMPLICATIONS: None. MOTORCYCLE REPAIRER: None. ANESTHESIA: General/local. RISKS: Risks, benefits, alternatives, and limitations including, but not limited to infection, bleeding, and injury to abdominal structures were explained to the patient, who wished to proceed. PROCEDURE IN DETAIL: The patient was placed in supine position. The previous incision was opened, carmita removed, and the fascia was also opened. The small bowel was inspected in its entirety. This has significantly improved compared to last night. The abdomen was thoroughly irrigated. The fascia was closed with #1 Vicryl running x2. Subcutaneous tissues were closed with 3-0 Vicryl. The skin was closed with carmita. Dressings were applied. The patient tolerated the procedure well. Nacho Carrington MD /[id number]
[2019-01-07] MEDS: Morphine 2 MG/ML Syringe IVPUSH PRN (20:33)
[2019-01-08] MEDS: Enoxaparin 40 MG/0.4 ML Syringe SUBCUT SCH (08:14)
--- NOTE | 2019-01-08 10:48 | PN ---
DATE OF SERVICE: 01/08/2019 SUBJECTIVE: The patient is doing well today. Pain is well controlled. No nausea, vomiting, shortness of breath, or chest pain. No GI activity yet. OBJECTIVE: VITAL SIGNS: Stable. CARDIOVASCULAR: Regular rhythm and rate. RESPIRATORY: Lungs clear to auscultation bilaterally. GASTROINTESTINAL: Incision healing well. Dressings are intact. ASSESSMENT: Status post reduction of internal hernia. PLAN: Continue to slowly advance diet, saline lock IV and await GI activity. Nacho Carrington MD /[id number]
[2019-01-08] MEDS: Ondansetron 4 MG/2 ML SDV IVPUSH PRN ×2 (10:55→19:45)
[2019-01-08] MEDS ORDERED: Simethicone 80 MG Tab.Chew PO PRN (15:07)
[2019-01-08] MEDS: Acetaminophen 325 MG Tab PO PRN (15:43)
[2019-01-08] MEDS: Ondansetron 4 MG Tab.DIS PO PRN (15:43)
[2019-01-08] MEDS: Morphine 2 MG/ML Syringe IVPUSH PRN (20:08)
[2019-01-09] MEDS ORDERED: Sodium Chloride 0.9% 50 ML ONE ×2 (00:42→21:06)
[2019-01-09] MEDS: Promethazine 25 MG/ML SDV IV PRN ×2 (00:49→21:14)
[2019-01-09] MEDS: Morphine 2 MG/ML Syringe IVPUSH PRN (01:05)
[2019-01-09] MEDS: Ondansetron 4 MG Tab.DIS PO PRN ×4 (01:09→20:04)
[2019-01-09] MEDS: Magnesium Hydroxide 400 MG/5 ML Susp 30 ML Cup PO PRN ×2 (02:21→20:04)
[2019-01-09] MEDS: Enoxaparin 40 MG/0.4 ML Syringe SUBCUT SCH (09:46)
--- NOTE | 2019-01-09 11:28 | CRLCR ---
INDICATION: Fever. TECHNIQUE: Chest 2 views. COMPARISON: 03/31/2018. FINDINGS: There are new small free layering bilateral pleural effusions with associated compressive bibasilar atelectasis. The mid and upper lungs are clear. And central vascular pattern remains stable and within the normal range. Increased AP diameter of the chest is again seen compatible with underlying COPD change. Scoliotic curvature of the thoracic spine is re-identified convex right. IMPRESSION: New small free layering bilateral pleural effusions with associated bibasilar alveolar consolidation/compressive atelectasis. Dictated by Kenneth Armijo MD @ Jan 09 2019 11:20AM Signed by Dr. Kenneth Armijo @ Jan 09 2019 11:26AM
[2019-01-09] MEDS: Sodium Chloride 0.9% 1,000 ML IV SCH ×2 (11:37→19:29)
[2019-01-09] MEDS: Meropenem 500 MG in Sodium Chloride 0.9% 50 ML IV SCH ×2 (11:47→19:29)
--- NOTE | 2019-01-09 12:09 | PN ---
DATE OF SERVICE: 01/09/2019 SUBJECTIVE: The patient is doing well except she is probably developing an ileus. OBJECTIVE: VITAL SIGNS: Stable. Temperature 99.7, blood pressure 147/84. CARDIOVASCULAR: Regular rhythm and rate. RESPIRATORY: Poor inspiratory effort bilaterally. ASSESSMENT AND PLAN: We will reorder labs today as her white blood cell count is elevated and reevaluate it after. Nacho Carrington MD /[id number]
[2019-01-09] MEDS: Acetaminophen 325 MG Tab PO PRN (17:17)
[2019-01-10] MEDS: Meropenem 500 MG in Sodium Chloride 0.9% 50 ML IV SCH ×3 (03:31→19:38)
[2019-01-10] MEDS: Sodium Chloride 0.9% 1,000 ML IV SCH ×3 (03:32→21:08)
[2019-01-10] MEDS: Enoxaparin 40 MG/0.4 ML Syringe SUBCUT SCH (09:28)
--- NOTE | 2019-01-10 15:22 | PN ---
DATE OF SERVICE: 01/10/2019 SUBJECTIVE: The patient has developed an ileus today. Has no nausea, vomiting, shortness of breath, or chest pain. Not passing any gas or bowel movement. OBJECTIVE: VITAL SIGNS: Stable. CARDIOVASCULAR: Regular rhythm and rate. RESPIRATORY: Lungs clear to auscultation. ABDOMEN: Distended. No rebound and no guarding. LABORATORY DATA: Lab results show a normal white blood cell count. Basic metabolic panel is essentially normal. ASSESSMENT: Ileus. PLAN: I will place NG today. Keep her essentially nil per os and recheck electrolytes in the a.m. Nacho Carrington MD /[id number]
[2019-01-10] MEDS: Sodium Chloride 0.9% 250 ML IV SCH (21:08)
[2019-01-11] MEDS: Sodium Chloride 0.9% 250 ML IV SCH (00:30)
[2019-01-11] MEDS: Meropenem 500 MG in Sodium Chloride 0.9% 50 ML IV SCH ×2 (03:57→11:37)
--- NOTE | 2019-01-11 05:22 | CRLCR ---
INDICATION: Possible ileus. COMPARISON: CT of the abdomen and pelvis from 01/06/2019. FINDINGS: Erect and supine films of the abdomen were obtained. During the interval, a nasogastric tube has been placed with its tip in satisfactory position in the body of the stomach. There are multiple new surgical skin carmita located just to the right of midline in the inferior abdomen and upper pelvis. In the abdomen, there is no sign of distention of the small bowel or colon to suggest obstruction or ileus. There is no sign of free air or distinct mass. Again seen is moderate scoliosis of the superior lumbar spine convex towards the left. Again seen is mild primary osteoarthritis of both hips. There is new moderate consolidation of the left lung base along with a new small left pleural effusion. There is a new small right pleural effusion without any right basilar infiltrate. IMPRESSION: No sign of obstruction or ileus. Satisfactory positioning of a nasogastric tube with tip in the body of the stomach. New moderate left basilar consolidation. New tiny bilateral pleural effusions. Dictated by Lamberto Boggs MD @ Jan 11 2019 5:17AM Signed by Dr. Lamberto Boggs @ Jan 11 2019 5:20AM
[2019-01-11] MEDS: Sodium Chloride 0.9% 1,000 ML IV SCH ×3 (06:30→23:05)
[2019-01-11] MEDS: Enoxaparin 40 MG/0.4 ML Syringe SUBCUT SCH (08:10)
[2019-01-11] MEDS ORDERED: Furosemide 20 MG/2 ML VIAL IVPUSH ONE ×2 (19:59→20:01)
[2019-01-12] MEDS ORDERED: Furosemide 20 MG/2 ML VIAL IVPUSH ONE (00:01)
--- NOTE | 2019-01-12 05:08 | CRLCR ---
INDICATION: Ileus COMPARISON: From yesterday FINDINGS: A single AP supine view of the abdomen was obtained. During the interval, the nasogastric tube has been removed. The bowel gas pattern remains unremarkable with nothing seen to suggest obstruction or ileus. There is no sign of dilatation of the small bowel or colon. There is no free air. Again seen are surgical skin carmita in the midline of the lower abdomen and upper pelvis. Surgical skin carmita are also seen in the right lower quadrant. Soft tissue planes are preserved and there is no sign of a mass. No calcifications of concern are identified. Again seen is moderate scoliosis of the upper lumbar spine convex towards the left. There continues to be moderate consolidation of the left lower lobe with a small left pleural effusion. There is a stable small right pleural effusion. IMPRESSION: No sign of obstruction or ileus. Removal of nasogastric tube during the interval. Stable moderate left lower lobe consolidation. Stable tiny bilateral pleural effusions. Dictated by Lamberto Boggs MD @ Jan 12 2019 5:04AM Signed by Dr. Lamberto Boggs @ Jan 12 2019 5:07AM
[2019-01-12] MEDS: Sodium Chloride 0.9% 1,000 ML IV SCH ×2 (06:59→16:38)
--- NOTE | 2019-01-12 09:34 | PN ---
DATE OF SERVICE: 01/12/2019 SUBJECTIVE: The patient continues to improve. No specific concerns from nursing today. OBJECTIVE: VITAL SIGNS: Stable. CARDIOVASCULAR: Regular rhythm and rate. LUNGS: Clear to auscultation bilaterally. ABDOMEN: Nontender and nondistended. ASSESSMENT: Status post hernia repair. PLAN: We will start her on a clear liquid diet today, advance as tolerated. She responded well to the Lasix. We will decrease her IV fluids. Nacho Carrington MD /[id number]
[2019-01-12] MEDS: Enoxaparin 40 MG/0.4 ML Syringe SUBCUT SCH (10:44)
[2019-01-13] MEDS: Sodium Chloride 0.9% 1,000 ML IV SCH ×3 (02:44→22:39)
[2019-01-13] MEDS ORDERED: Furosemide 20 MG/2 ML VIAL IVPUSH ONE (08:04)
[2019-01-13] MEDS: Enoxaparin 40 MG/0.4 ML Syringe SUBCUT SCH (08:58)
[2019-01-14] MEDS: Enoxaparin 40 MG/0.4 ML Syringe SUBCUT SCH (08:33)
--- NOTE | 2019-01-14 10:08 | PN ---
DATE OF SERVICE: 01/14/2019 SUBJECTIVE: The patient is doing very well. Pain is well controlled. No nausea, vomiting, shortness of breath, or chest pain. She is having bowel movements. OBJECTIVE: VITAL SIGNS: Stable. She is afebrile. CARDIOVASCULAR: Regular rhythm and rate. RESPIRATORY: Lungs clear to auscultation bilaterally. GASTROINTESTINAL: Wound healing well. ASSESSMENT: Status post bowel obstruction. PLAN: The patient will be discharged probably in a.m. Nacho Carrington MD /[id number]
[2019-01-15 07:47] VITALS: BP 131/67; PULSE 98
[2019-01-15] MEDS: Enoxaparin 40 MG/0.4 ML Syringe SUBCUT SCH (08:37)
--- NOTE | 2019-01-15 10:42 | PN ---
DATE OF SERVICE: 01/15/2019 SUBJECTIVE: The patient is doing very well. Pain is well controlled. No nausea, vomiting, shortness of breath, or chest pain. OBJECTIVE: VITAL SIGNS: Stable. CARDIOVASCULAR: Regular rhythm and rate. RESPIRATORY: Lungs are clear to consultation bilaterally. ABDOMEN: Bowel sounds are positive. Incision is healing well. ASSESSMENT: Status post repair of internal hernia. PLAN: The patient will be discharged today. Please see discharge summary for further details. Nacho Carrington MD /[id number]
--- NOTE | 2019-01-17 08:18 | DISCH ---
HOSPITAL COURSE: This is a pleasant 88-year-old female who underwent an internal hernia repair due to adhesions. The patient did well during this hospitalization. She did undergo a planned second look of the small bowel on postop day #1, and no resection was needed or required. She is on no pain med. FOLLOWUP: Follow up with Surgery in 7 to 14 days. ACTIVITY: No lifting greater than 30 pounds x30 days. DISCHARGE MEDICATIONS: Please see MAR, but continue same medications.
== END 2019-01-15 11:50 | disposition home or self-care (01) | DRG 337 ==
LOC: JP.ED 23:59 → JP.MS 01-06 02:06
PROVIDERS: ADMIT Surgery; ATTEND Surgery
PROC: 0DNW0ZZ Release Peritoneum, Open Approach (ICD-10-PCS; principal; 2019-01-06)
PROC: 0WJF4ZZ Inspection of Abdominal Wall, Percutaneous Endoscopic Approach (ICD-10-PCS; 2019-01-06)
PROC: 0WQF0ZZ Repair Abdominal Wall, Open Approach (ICD-10-PCS; 2019-01-07)
DX: K56.609 Unspecified intestinal obstruction, unspecified as to partial versus complete obstruction (principal); K56.50 Intestinal adhesions [bands], unspecified as to partial versus complete obstruction; K56.7 Ileus, unspecified; H52.03 Hypermetropia, bilateral; E78.00 Pure hypercholesterolemia, unspecified; G89.29 Other chronic pain; M19.90 Unspecified osteoarthritis, unspecified site; M81.0 Age-related osteoporosis without current pathological fracture; M41.9 Scoliosis, unspecified; M54.9 Dorsalgia, unspecified; Z80.0 Family history of malignant neoplasm of digestive organs; H40.9 Unspecified glaucoma; E78.5 Hyperlipidemia, unspecified; Z88.0 Allergy status to penicillin; Z91.040 Latex allergy status; Z88.2 Allergy status to sulfonamides; Z88.1 Allergy status to other antibiotic agents; Z79.899 Other long term (current) drug therapy; Z87.01 Personal history of pneumonia (recurrent); Z98.49 Cataract extraction status, unspecified eye; Z87.440 Personal history of urinary (tract) infections; Z85.3 Personal history of malignant neoplasm of breast; Z86.718 Personal history of other venous thrombosis and embolism; Z86.711 Personal history of pulmonary embolism
CPT/HCPCS: 36415; 51701; 51702; 51798; 71046; 74019; 74176; 80048; 80053; 81001; 82550; 83605; 83690; 84484; 85025; 85027; 87070; 87075; 87205; 93005; 96361; 96374; 96375; 97110-GP; 97162-GP; 97165-GO; 97530-GP; 97535-GP; 99283; 99285-25; A9270-GY; J0171; J0330; J0690; J1100; J1650; J1940; J2185; J2270; J2370; J2405; J2550; J2704; J2710; J2795; J3010; J3490; J7030; J7050; J7120